=== PATIENT | female | born 1960 | race Caucasian/White ===

== ENCOUNTER → 2017-12-09 07:18 | Outpatient (CLI) | payer MEDICARE, MEDICAID, SELFPAY ==
[2017-12-10 15:13] LABS: Hep A Ab, IgM Negative (Negative); Hepatitis B Core Antibody IgM Negative (Negative); Hepatitis B Surface Antigen Negative (Negative)
[2017-12-10 19:07] LABS: Hepatitis C Antibody 0.1 s/co ratio (0.0-0.9)
== END ==
PROVIDERS: PCP Nurse Practitioner Family; Visit Provider Nurse Practitioner Family
DX: R53.83 Other fatigue (principal)
CPT/HCPCS: 36415; 80074

== ENCOUNTER 2017-12-16 10:53 | Emergency (ER) | payer MEDICARE, MEDICAID, SELFPAY ==
[2017-12-16 12:02] VITALS: BP 114/74; PULSE 88; RESP 20; TEMP 36.6; O2SAT 98; BMI 37.8
--- NOTE | 2017-12-16 12:08 | HMH.EDUTC ---
[facility] [place] Clinical Impression: Arthritis pain Disposition: Home, Self-Care Condition on Discharge: Good Instructions: Arthritis (Alternative Therapy) Additional Instructions: Follow up with family doctor Over the counter measures such as arthritis cream etc to help on raining days for the pain Return if needed Go straight to ER if symptoms worsen or you began to have chest pain or other life threatening problems Referrals: Olive Lal APRN [Primary Care Provider] - As needed Time of Disposition: 12:30 Medical Decision Making - Medical Records Medical records reviewed: Yes: I reviewed the patient's medical records. Vital Signs: 12/16/17 12:02 Temperature 97.9 F Temperature Source Oral Pulse Rate [Right Brachial] 88 Respiratory Rate 20 Blood Pressure [Right Arm] 114/74 Blood Pressure Mean [Right Arm] 87 Blood Pressure Source [Right Arm] Automatic Cuff Blood Pressure Position [Right Arm] Sitting 02 Sat by Pulse Oximetry 98 Oxygen Delivery Method Room Air - Neftali Inquiry Pt receiving controlled substance: No Neftali was queried for this patient: No - Reevaluation(s) Time: 12:25 Reevaluation #1: Patient currently taking Meloxicam State that she took her medication this morning wanting to see if she could get a pain shot, called pharmacy and talked with Pharmacist Philip and agreed that due to taking of meloxicam 6 hours ago that it would not be safe to have Tordol shot now. Patient informed and verbalized understanding [facility] [place] - General Stated complaint: back pain knees pain (bones hurt all over) Mode of Arrival: Ambulatory Source of Information: Patient Limitations: No Limitations Description of Symptoms (Recalled from Triage Doc. by RN): Bones hurt . Reports back, hip, and knee pain bilaterally for 3 days HEENT Symptoms (Recalled from RN notes): No Resp Symptoms (Recalled from RN notes): No Skin Symptoms (Recalled from RN notes): No MS Symptoms (Recalled from RN notes): Yes (arthritic like pain) Functional Status (Recalled from RN notes): na - History of Present Illness Provider Complaint: Patient state that she has a history of arthritits States that she usually goes to her family doctor and gets a cortisone shot State that she is having arthritis pain in her back hips, knees and feet State that she took her morning medication and is on a daily arthritits medication but it hasn't been helping much with her arthritis pain wanted to come in and see if she could get a pain shot to help her - Related Data Home Medications Medication Instructions Recorded Confirmed aspirin 81 mg tablet,delayed 81 mg PO DAILY tab 12/07/17 release coenzyme Q10 100 mg capsule 100 mg PO DAILY cap 12/07/17 ergocalciferol (vitamin D2) 2,000 1,000 unit PO DAILY tab 12/07/17 unit tablet hydrochlorothiazide 12.5 mg tablet 12.5 mg PO QAM 12/07/17 losartan 50 mg tablet 50 mg PO DAILY tab 12/07/17 meloxicam 7.5 mg tablet 7.5 mg PO DAILY tab 12/07/17 omega-3 fatty acids 1,000 mg 1,000 mg PO DAILY cap 12/07/17 capsule pravastatin 20 mg tablet 20 mg PO QHS 12/07/17 Previous Rx's Medication Instructions Recorded ezetimibe 10 mg tablet 10 mg PO DAILY #90 tab 12/13/17 pantoprazole 40 mg tablet,delayed 40 mg PO QAM #90 tab 12/13/17 release Allergies Allergy/AdvReac Type Severity Reaction Status Date / Time atorvastatin [ATORVASTATIN] Allergy Unknown Verified 12/08/17 15:55 colesevelam [From WELCHOL] Allergy Unknown Verified 12/08/17 15:55 rosuvastatin [From CRESTOR] Allergy Unknown Verified 12/08/17 15:55 DECADRON Allergy Unknown I-HIVES Uncoded 12/08/17 15:55 NIASPAN ER Allergy Unknown I-HIVES Uncoded 12/08/17 15:55 - Worker's Comp Is this a Worker's Comp case?: No Is this an H Worker's Comp?: No Is this a [place] Worker's Comp?: No H History I have reviewed the patient's past medical history: Yes Medical History: Reports:: Gastroesophageal Reflux Disease(YUMIKO
--- NOTE | 2017-12-16 12:20 | ED_ITS ---
[facility] – [place] Disposition Clinical Impression: Arthritis pain Disposition: Home, Self-Care Condition on Discharge: Good Instructions: Arthritis (Alternative Therapy) Additional Instructions: Follow up with family doctor Over the counter measures such as arthritis cream etc to help on raining days for the pain Return if needed Go straight to ER if symptoms worsen or you began to have chest pain or other life threatening problems Referrals: Olive Lal APRN [Primary Care Provider] - As needed Time of Disposition: 12:30 Medical Decision Making - Medical Records Medical records reviewed: Yes: I reviewed the patient's medical records. Vital Signs: 12/16/17 12:02 Temperature 97.9 F Temperature Source Oral Pulse Rate [Right Brachial] 88 Respiratory Rate 20 Blood Pressure [Right Arm] 114/74 Blood Pressure Mean [Right Arm] 87 Blood Pressure Source [Right Arm] Automatic Cuff Blood Pressure Position [Right Arm] Sitting 02 Sat by Pulse Oximetry 98 Oxygen Delivery Method Room Air - Neftali Inquiry Pt receiving controlled substance: No Neftali was queried for this patient: No - Reevaluation(s) Time: 12:25 Reevaluation #1: Patient currently taking Meloxicam State that she took her medication this morning wanting to see if she could get a pain shot, called pharmacy and talked with Pharmacist Philip and agreed that due to taking of meloxicam 6 hours ago that it would not be safe to have Tordol shot now. Patient informed and verbalized understanding [facility] – [place] HPI - General Stated complaint: back pain knees pain (bones hurt all over) Mode of Arrival: Ambulatory Source of Information: Patient Limitations: No Limitations Description of Symptoms (Recalled from Triage Doc. by RN): Bones hurt . Reports back, hip, and knee pain bilaterally for 3 days HEENT Symptoms (Recalled from RN notes): No Resp Symptoms (Recalled from RN notes): No Skin Symptoms (Recalled from RN notes): No MS Symptoms (Recalled from RN notes): Yes (arthritic like pain) Functional Status (Recalled from RN notes): na - History of Present Illness Provider Complaint: Patient state that she has a history of arthritits States that she usually goes to her family doctor and gets a cortisone shot State that she is having arthritis pain in her back hips, knees and feet State that she took her morning medication and is on a daily arthritits medication but it hasn' t been helping much with her arthritis pain wanted to come in and see if she could get a pain shot to help her - Related Data Home Medications Medication Instructions Recorded Confirmed aspirin 81 mg tablet,delayed 81 mg PO DAILY tab 12/07/17 release coenzyme Q10 100 mg capsule 100 mg PO DAILY cap 12/07/17 ergocalciferol (vitamin D2) 2,000 1,000 unit PO DAILY tab 12/07/17 unit tablet hydrochlorothiazide 12.5 mg tablet 12.5 mg PO QAM 12/07/17 losartan 50 mg tablet 50 mg PO DAILY tab 12/07/17 meloxicam 7.5 mg tablet 7.5 mg PO DAILY tab 12/07/17 omega-3 fatty acids 1,000 mg 1,000 mg PO DAILY cap 12/07/17 capsule pravastatin 20 mg tablet 20 mg PO QHS 12/07/17 Previous Rx's Medication Instructions Recorded ezetimibe 10 mg tablet 10 mg PO DAILY #90 tab 12/13/17 pantoprazole 40 mg tablet,delayed 40 mg PO QAM #90 tab 12/13/17 release Allergies
[2017-12-16 12:35] VITALS: BP 114/74; PULSE 88; RESP 20; TEMP 36.6; O2SAT 98
== END 2017-12-16 12:37 | disposition home or self-care (01) ==
PROVIDERS: Emergency Provider Nurse Practitioner; PCP Nurse Practitioner Family
DX: K21.9 Gastro-esophageal reflux disease without esophagitis (principal); Z79.82 Long term (current) use of aspirin; Z88.8 Allergy status to other drugs, medicaments and biological substances
CPT/HCPCS: G0463; 99202

== ENCOUNTER → 2017-12-19 11:01 | Outpatient (REF) | payer MEDICARE, MEDICAID, SELFPAY ==
[2017-12-19 14:24] LABS: Basophils % 0.5 % (0.1-2.0); Eosinophils # 0.3 K/mm3 (0.0-0.4); Eosinophils % 3.2 % (0.1-12.0); Hematocrit 41.5 % (37.0-47.0); Hemoglobin 13.8 g/dL (12.2-16.2); Lymphocytes # 2.5 K/mm3 (0.7-4.5); Lymphocytes % 27.9 K/mm3 (10-50); Mean Corpuscular HGB Conc 33.3 g/dL (31.8-35.4); Mean Corpuscular Hemoglobin 28.1 pg (27.0-31.2); Mean Corpuscular Volume 84.5 fl (81-99); Mean Platelet Volume 9.5 fl (7.4-10.4); Monocytes # 0.5 K/mm3 (0.1-1.0); Monocytes % 6.1 % (1.7-9.3); Neutrophils # 5.5 K/mm3 (1.8-7.8); Neutrophils % 62.3 % (37.0-80.0); Platelet Count 283 K/mm3 (142-424); Red Blood Count 4.92 M/mm3 (4.20-5.40); Red Cell Distribution Width 12.2 % (11.5-17.5); White Blood Count 8.8 K/mm3 (4.8-10.8)
[2017-12-19 14:55] LABS: Alanine Aminotransferase 30 U/L (12-78); Albumin Level 3.9 gm/dL (3.4-5.0); Albumin/Globulin Ratio 1.2 (1.1-1.8); Alkaline Phosphatase 95 U/L (46-116); Anion Gap 12.7 mEq/L (5-15); Aspartate Amino Transferase 21 U/L (15-37); Bilirubin,Total 0.3 mg/dL (0.2-1.0); Blood Urea Nitrogen 12 mg/dL (7-18); Calcium 8.7 mg/dL (8.5-10.1); Carbon Dioxide 30 mmol/L (21.0-32.0); Chloride 101 mmol/L (98-107); Creatinine,Serum 0.78 mg/dL (0.55-1.02); Estimated Glomerular Filt Rate 76 ml/min (>60); GFR (African American) 91 ML/MIN (>60); Globulin 3.2 gm/dl (1.3-3.2); Glucose 131 mg/dL (74-106); Potassium 3.7 mmoL/L (3.5-5.1); Sodium 140 mmol/L (136-145); Total Protein,Serum 7.1 gm/dL (6.4-8.2)
[2017-12-19 16:13] LABS: Erythrocyte Sedimentation Rate 13 mm/hr (0-30)
[2017-12-19 16:30] LABS: C-Reactive Protein < 0.2 mg/L (0.0-0.9)
[2017-12-20 10:39] LABS: RA Latex Turbid. <10.0 IU/mL (0.0-13.9)
[2017-12-20 14:15] LABS: Anti-Jo-1 <0.2 AI (0.0-0.9); Anti-Smith Antibody <0.2 AI (0.0-0.9); Antichromatin Antibodies <0.2 AI (0.0-0.9); Antiscleroderma-70 Antibodies <0.2 AI (0.0-0.9); RNP Antibodies 0.9 AI (0.0-0.9); Sjogren's Anti-SS-A <0.2 AI (0.0-0.9); Sjogren's Anti-SS-B <0.2 AI (0.0-0.9)
[2017-12-21 12:51] LABS: Anti-Centromere B Antibodies <0.2 AI (0.0-0.9); Anti-Cyclic Citrullinated Pept 7 units (0-19); Anti-DNA (DS) Ab Qn 22 IU/mL (0-9)
== END ==
LOC: LAB 11:01
PROVIDERS: Visit Provider Emergency Medicine
DX: R60.9 Edema, unspecified (principal)
CPT/HCPCS: 80053; 85025; 85651; 86038; 86140; 86200; 86431

== ENCOUNTER → 2018-01-31 16:49 | Outpatient (REF) | payer MEDICARE, MEDICAID, SELFPAY | LOC: LAB 16:49 | PROVIDERS: Visit Provider Nurse Practitioner Family | DX: R53.83 Other fatigue (principal) | CPT/HCPCS: 87086 ==

== ENCOUNTER → 2018-02-13 10:33 | Outpatient (CLI) | payer MEDICARE, MEDICAID, SELFPAY ==
--- NOTE | 2018-02-13 10:37 | MM_ITS ---
MM Dig screening mamm BI w/CAD CAD Screening ORDERING PHYSICIAN : Qing Alexander PATIENT AGE: 57 years GENDER: Female HISTORY no hormones no new complaints. Benign surgical excisional biopsy left breast in past. Family history. Noncontributory COMPARISON: Previous mammograms: 2016, October 2015.: TECHNIQUE: Standard CC and MLO images were obtained. R2 CAD reviewed. FINDINGS:. Dense breast with regions of very dense breast tissue bilaterally again noted. Appears overall stable, but would note that mammography is of decreased sensitivity in breast of this dense character which may obscure underlying features... Ultrasound can be useful compliment to mammography in breast of this diffuse increased density particularly palpable areas arise. Self breast examination would be encouraged in this patient Left breast Dense areas of breast tissue is slightly more apparent on the left breast than right but again the pattern is unchanged on this screening mammogram.. No new dominant mass nor architectural distortion either breast. There are some tiny calcifications seen towards the deep breast which appears similar to 2016]. Most likely reflecting adenosis and vascular calcifications -but these but also would benefit from magnification views in the patient returns as well. This area labeled X. There is also metallic on marker at the anterior left breast from previous percutaneous biopsy 11 o'clock position left breast Right breast. On close inspection I would note that there are some small areas of loose grouping calcifications seen at the inferior right breast most evident at the site Labeled A. On these oh warrant additional magnification spot views it is also area inferior breast labeled B. Which would also benefit from magnification spot view =====IMPRESSION: = 1. Dense breast bilaterally limit mammography but with no new mass lesion evident 2. However there are small Tiny Calcifications Bilaterally which would benefit from Magnification Views .:: Right Breast. Tiny loosely grouped calcifications are slightly more evident at the area labeled A and B on today's study.-Most likely benign fibrocystic calcification &/adenosis but would benefit from magnification views to better characterize Left Breast: these are most likely stable benign tiny adenosis calcifications but would benefit from magnification views when patient returns as well . BI-RADS Category: 0 Need Additional Imaging Evaluaiton. RECOMMENDED FOLLOW-UP: IMM - IMMEDIATE FOLLOW-UP RECOMMENDED (A letter has been sent to the patient regarding results of the study.)
== END ==
PROVIDERS: PCP Nurse Practitioner Family; Visit Provider Nurse Practitioner Family
DX: Z12.31 Encounter for screening mammogram for malignant neoplasm of breast (principal)
CPT/HCPCS: 77067

== ENCOUNTER → 2018-02-15 08:31 | Outpatient (CLI) | payer MEDICARE, MEDICAID, SELFPAY ==
--- NOTE | 2018-02-15 09:00 | US_ITS ---
US abdomen complete HISTORY: Lower abdominal pain ITS.REASON: pain ORDERING PHYSICIAN: Qing Alexander PATIENT AGE: 57 years COMPARISON: 09/05/2017 FINDINGS: PANCREAS:Unremarkable. No obvious mass or abnormal fluid collection. No ductal dilatation LIVER:There is increased echogenicity of the liver with a somewhat heterogeneous pattern consistent with fatty liver. No focal space-occupying lesion or ductal dilatation. Portal vein is normal in size at 10 mm with appropriate direction of blood flow within the portal vein. RIGHT KIDNEY:Unremarkable. Normal size and echogenicity. No hydronephrosis LEFT KIDNEY:No hydronephrosis. Mild cortical thinning with scarring of the left kidney GALLBLADDER:Prior cholecystectomy. Common bile duct is normal at 3 mm AORTA:No evidence of aneurysmal dilatation. SPLEEN:Unremarkable. Normal size and echogenicity ASCITES:None demonstrated. IMPRESSION: 1. Prior cholecystectomy. No ductal dilatation. 2. Fatty liver. 3. Mild cortical scarring of the left kidney
== END ==
PROVIDERS: PCP Nurse Practitioner Family; Visit Provider Nurse Practitioner Family
DX: R10.9 Unspecified abdominal pain (principal)
CPT/HCPCS: 76700

== ENCOUNTER → 2018-02-21 12:40 | Outpatient (CLI) | payer MEDICARE, MEDICAID, SELFPAY ==
--- NOTE | 2018-02-21 13:54 | MM_ITS ---
. MM Dig mamm BI DX w/CAD CAD Screening ORDERING PHYSICIAN : Olive Lal PATIENT AGE: 57 years GENDER: Female COMPARISON: Previous mammograms: February 13, 2018, December 2016, October 2015, December 2012, INDICATION:. Diagnostic additional magnification views for small calcifications bilateral Previous stereotactic biopsy left breast. Noncontributory history. TECHNIQUE: Standard CC and MLO images were obtained. R2 CAD reviewed. The patient difficult to position FINDINGS: Dense breast bilaterally . This case was initially reviewed by Dr. De La Rosa but subsequent assigned to Dr. Calderon by technologist resulting in delayed reporting RIGHT BREAST:Scattered small loose groupings of tiny generally punctate calcifications also is a smaller grouping labeled C. And breast of this dense character these most likely reflect fibrocystic calcifications and adenosis but will benefit from close follow-up in within 9 months to better characterize and confirm stability on magnification views,/with this close growth . Specifically noted area A deep central breast labeled a on cc view, & another small grouping more laterally labeled B... LEFT BREAST: Small clustered calcifications in the deep left breast seen on cc view labeled X, becomes more diffuse and less evident on the MLO and 90 degree view. In fact, and 90 degree views these seem to be may be vascular calcification pattern. This particular grouping labeled X calcifications have shown only scant progression of versus 2017. There are some other small areas of loosely grouped calcifications throughout the lateral breast on the magnification cc view also noted.. Thus At this point I suggest a left mammogram with magnification views in 6 to 9 months again attempt to better visualize these tiny calcifications... Close follow-up here. Would be important. Metallic marker clip at the superior left breast 11 o'clock position from previous percutaneous biopsy The longer follow-up interval may be helpful to evaluate for any subtle change as I suspect these will be slowly changing, as I favor they are more likely benign calcifications. IMPRESSION: 1. Dense breast bilaterally decreases sensitivity of mammography 2... Scattered small groupings tiny calcifications bilaterally which would benefit from follow-up in 6-9 months. (The Longer interval would be adequate in these likely slowly changing more likely benign calcifications.): LEFT BREAST. Small grouping tiny calcifications upper-outer quadrant left breast labeled X. These best seen on cc view, but appears more scattered & lateral possibly linear vascular calcifications on lateral views. These calcifications been present since 2017 with only subtle progression.. At this point would suggest follow-up with follow-up left mammogram including magnification views 6-9 months. RIGHT BREAST with several small loose grouping calcifications but more likely reflecting adenosis. . These also benefit from follow-up magnification CC views area also at 6- 9 months when patient returns suggested as well. Currently no grouping of calcification is significantly greater concern then another, but ongoing follow-up will be important . BI-RADS Category: 3 Benign Finding Short Term Follow-up RECOMMENDED FOLLOW-UP: 6M `-9 MONTH FOLLOW-UP Follow-up mammograms with magnification views suggested 9 months ( Magnification views of small groupings calcifications at area X at the left breast; & right breast at at area A & B, recommended in follow-up) (A letter has been sent to the patient regarding results of the study.)
== END ==
PROVIDERS: PCP Nurse Practitioner Family; Visit Provider Nurse Practitioner Family
DX: R92.8 Other abnormal and inconclusive findings on diagnostic imaging of breast (principal)
CPT/HCPCS: 77066

== ENCOUNTER → 2018-09-27 12:27 | Outpatient (CLI) | payer MEDICARE, MEDICAID, SELFPAY ==
--- NOTE | 2018-09-27 12:29 | MM_ITS ---
MM Dig mamm BI DX w/CAD INDICATION: Follow-up abnormal mammogram ORDERING PHYSICIAN: Olive Lal PATIENT AGE: 58 years COMPARISON: 02/21/2018, 02/13/2018, 12/22/2016 TECHNIQUE: Standard images are performed along with spot compression views. FINDINGS: Right breast: There is very dense fibroglandular tissue which decreases sensitivity of mammography. Scattered calcifications are once again noted. There is a cluster of somewhat pleomorphic calcifications in the inferior aspect of the right breast which appears somewhat more numerous compared to the previous study. It is felt that these are the same cluster calcifications and is present in the central aspect of the right breast previously labeled A. Calcification previously labeled B and C are not significantly changed and probably benign Left breast: Cluster of calcifications previously labeled X in the outer aspect of the left breast do not appear significantly changed on the mag views. Faint calcifications in the upper outer left breast do not appear significantly changed. Multiple areas of calcification are noted within both breasts. These are difficult to evaluate due to the dense fibroglandular tissue but are felt to be probably benign. Continued follow-up will be needed.. Continued six-month follow-up recommended IMPRESSION: Mildly suspicious calcifications in the inferior aspect of the right breast slightly increased in number. Recommend stereotactic biopsy BI-RADS Category: 4 Suspicious Abnormality-Biopsy Considered RECOMMENDED FOLLOW-UP: BIO - BIOPSY RECOMMENDED (A letter has been sent to the patient regarding results of the study.)
== END ==
PROVIDERS: PCP Nurse Practitioner Family; Visit Provider Nurse Practitioner Family
DX: R92.8 Other abnormal and inconclusive findings on diagnostic imaging of breast (principal)
CPT/HCPCS: 77066

== ENCOUNTER → 2018-11-01 07:52 | Outpatient (CLI) | payer MEDICARE, MEDICAID, SELFPAY ==
--- NOTE | 2018-11-01 | MM_ITS ---
MM stereotactic loc RT MM Dig mamm DX unilat RT CAD, ORDERING PHYSICIAN: Bautista Eli MD PATIENT AGE: 58 years Comparison: 09/27/2018 Indications: Abnormal mammogram with suspicious calcifications. PROCEDURE: The patient was placed on the stereotactic table and the abnormality was localized in the most appropriate projection. The breast was prepped in the routine manner, with sterile prep and the overlying skin anesthetized. A 3 to 4 mm skin incision was performed and the age gauge vacuum-assisted core biopsy needle was advanced to the region of the calcification. Pre- and post fire images were obtained. After adequate positioning relative to the calcifications was ensured, multiple biopsies were obtained in the region of the calcifications specifically. The core biopsies obtained were sent for specimen mammography. After the calcifications were indeed identified on the specimen mammogram, the procedure was terminated. The patient tolerated the procedure well without complications. Specimen was sent for pathologic analysis which should be forthcoming within 3 working days. Routine follow-up phone call to patient is to be performed as well. A tiny titanium nonferromagnetic MicroMark was positioned through the mammotome needle into the biopsy site. Pathology: Pseudoangiomatous stromal hyperplasia, nonproliferative fibrocystic changes. Microcalcifications. No evidence of malignancy or atypia IMPRESSION: 1. Successful stereotactic vacuum-assisted core biopsy of the Right breast calcifications showing benign findings. 2. Successful placement of a titanium metal MicroMark. 3. No noted complications. SPECIMEN RADIOGRAPH: The mammographically evident calcifications from the prior study are currently evident within the Chepe dish and within the specimens obtained during mammotome procedure. This is considered an adequate specimen and the procedure was terminated. IMPRESSION: Successful removal of described breast calcifications. Right BREAST MAMMOGRAM: Compared to the prior study, the previously noted calcification have been removed. A small MicroMark clip was inserted into the region of the calcifications. There is evidence of soft tissue changes in the region of the biopsy was soft tissue gas and edema. IMPRESSION: 1. Adequate placement of the MicroMark clip postbiopsy. 2. Postbiopsy changes within the rightbreast.
== END ==
PROVIDERS: PCP Emergency Medicine; Visit Provider Emergency Medicine
DX: R92.1 Mammographic calcification found on diagnostic imaging of breast (principal); R92.8 Other abnormal and inconclusive findings on diagnostic imaging of breast
CPT/HCPCS: 19081; 77065; 88305

== ENCOUNTER → 2018-11-03 19:03 | Outpatient (CLI) | payer MEDICARE, MEDICAID, SELFPAY | PROVIDERS: Visit Provider Nurse Practitioner Family | DX: R10.9 Unspecified abdominal pain (principal) | CPT/HCPCS: 87086 ==

== ENCOUNTER → 2018-12-06 14:09 | Outpatient (CLI) | payer MEDICARE, MEDICAID, SELFPAY | PROVIDERS: Visit Provider Nurse Practitioner Family | DX: R10.9 Unspecified abdominal pain (principal); N39.0 Urinary tract infection, site not specified | CPT/HCPCS: 87086 ==

== ENCOUNTER → 2018-12-26 13:44 | Outpatient (CLI) | payer MEDICARE, MEDICAID, SELFPAY ==
[2018-12-26 14:17] LABS: Basophils % 0.5 % (0.1-2.0); Eosinophils # 0.3 K/mm3 (0.0-0.4); Eosinophils % 3.2 % (0.1-12.0); Hematocrit 44.6 % (37.0-47.0); Lymphocytes % 37.6 % (10-50); Mean Corpuscular HGB Conc 33.5 g/dL (31.8-35.4); Mean Corpuscular Hemoglobin 28.2 pg (27.0-31.2); Mean Corpuscular Volume 84.3 fl (81-99); Mean Platelet Volume 8.7 fl (7.4-10.4); Monocytes # 0.3 K/mm3 (0.1-1.0); Monocytes % 4.2 % (1.7-9.3); Neutrophils # 4.3 K/mm3 (1.8-7.8); Neutrophils % 54.6 % (37.0-80.0); Platelet Count 320 K/mm3 (142-424); Red Cell Distribution Width 12.7 % (11.5-17.5); White Blood Count 7.9 K/mm3 (4.8-10.8)
[2018-12-26 15:11] LABS: Alanine Aminotransferase 30 U/L (12-78); Albumin Level 4.1 gm/dL (3.4-5.0); Albumin/Globulin Ratio 1.1 (1.1-1.8); Alkaline Phosphatase 104 U/L (46-116); Anion Gap 13.1 mEq/L (5-15); Aspartate Amino Transferase 18 U/L (15-37); Bilirubin,Total 0.5 mg/dL (0.2-1.0); Blood Urea Nitrogen 17 mg/dL (7-18); Calcium 9.5 mg/dL (8.5-10.1); Carbon Dioxide 31 mmol/L (21.0-32.0); Chloride 100 mmol/L (98-107); Creatinine,Serum 0.75 mg/dL (0.55-1.02); Estimated Glomerular Filt Rate 79 ml/min (>60); Free T4 (Free Thyroxine) 1.07 ng/dl (0.76-1.46); GFR (African American) 95 ML/MIN (>60); Globulin 3.8 gm/dl (1.3-3.2); Glucose 94 mg/dL (74-106); Potassium 4.1 mmoL/L (3.5-5.1); Sodium 140 mmol/L (136-145); Thyroid Stimulating Hormone 2.51 uIU/ml (0.358-3.740); Total Protein,Serum 7.9 gm/dL (6.4-8.2)
[2018-12-27 14:41] LABS: Vitamin D 25 Hydroxy 33.1 ng/mL (30.0-100.0)
== END ==
PROVIDERS: Visit Provider Nurse Practitioner Family
DX: L29.9 Pruritus, unspecified (principal); R53.83 Other fatigue
CPT/HCPCS: 80053; 82652; 84439; 84443; 85025

== ENCOUNTER → 2019-01-16 14:36 | Outpatient (CLI) | payer MEDICARE, MEDICAID, SELFPAY ==
[2019-01-16 15:28] LABS: Chol/HDL Ratio 5.1 (1-3.5); Cholesterol 251 mg/dL (140-200); HDL Cholesterol 49 mg/dL (29-89); LDL Cholesterol 171 mg/dL (0-130); Triglycerides 154 mg/dL (30-200); VLDL Cholesterol 31 mg/dL (0-40)
== END ==
PROVIDERS: Visit Provider Nurse Practitioner Family
DX: R53.83 Other fatigue (principal); L29.9 Pruritus, unspecified; Z79.899 Other long term (current) drug therapy
CPT/HCPCS: 80061

== ENCOUNTER → 2019-03-27 12:14 | Outpatient (CLI) | payer MEDICARE, MEDICAID, SELFPAY ==
--- NOTE | 2019-03-27 12:16 | NM_ITS ---
CARDIOLITE SPECT MYOCARDIAL PERFUSION LEXISCAN, REST AND STRESS: [facility] REVIEW QGS EF AND WALL MOTION EVALUATION: QPS - PERFUSION EVALUATION HISTORY: cp..palpitations..syncope DOSE: 10.62 mCi technetium 99m mibi intravenously at rest followed by 32.4 mCi technetium 99m mibi following the intravenous ministration of 0.4 mg of Lexiscan. Resting blood pressure is 165/86. Stress blood pressure 160/86. FINDINGS: Ejection fraction is calculated to be 70%. Stress images reveal decreased activity in the anterior wall while rest images reveal normal activity IMPRESSION: Reversible ischemia throughout the anterior wall with normal ejection fraction normal wall motion. High risk abnormal stress test
--- NOTE | 2019-03-27 13:17 | CA_ITS ---
PROCEDURE: 2-D M-mode and color Doppler study INDICATIONS FOR THE TEST: Chest pain+ COPD Heart Murmur Tobacco Smoking Palpitations+ Fatigue+ Syncope Edema+ Hypertension+Diabetes Mellitus Rheumatic Fever SOB TADEO Obesity Hyperlipidemia+ Family History HD Additional History BUTCH, PALP, GERD, ULCER PATIENT INFORMATION HEIGHT: 63 WEIGHT:199 GENDER: Female B/P:153/81 2-D/M-MODE INTERPRETATION: 2-D MEASUREMENTS OBSERVED VALUES IN CMS Right Ventricular Dimension (RVDd) 2.4 Interventricular Septum (Thickness)(IVsd) 1.0 Left Ventricular Internal Dimensions(LVIDd) 4.8 Left Ventricular Posterior Wall (Thickness)(LVPWd) 0.9 Aortic Root 2.9 Aortic Cusp Separation 2.1 Left Atrial Dimensions (LAD) 3.8 2D 1. Left atrium is mildly enlarged, left ventricle is normal size, mild concentric left ventricular hypertrophy, visually estimated ejection fraction 55% with no regional wall motion abnormality. 2. The right atrium and right ventricle are normal size and contractility. 3. The aortic valve is minimally thickened and fibrosed. 4. The mitral and tricuspid valvular grossly normal. 5. The pulmonic valve is poorly present. 6. No significant pericardial effusion noted. DOPPLER INTERROGATION: Doppler interrogation of the aortic, mitral and tricuspid valvular presence of mild mitral and tricuspid regurgitation, tricuspid regurgitation jet velocity is inadequate for calculation of the right ventricular systolic pressure, grade 1 diastolic dysfunction seen with tissue Doppler evidence of raised left atrial pressure. CONCLUSION: 1. Mildly enlarged left atrium, normal left ventricular size, mild concentric left ventricular hypertrophy, visually estimated ejection fraction 55% with no regional wall motion abnormality, grade 1 diastolic dysfunction seen with tissue Doppler evidence of raised left atrial pressure. 2. Mild mitral and tricuspid regurgitation 3. No significant pericardial effusion noted.
--- NOTE | 2019-03-27 13:53 | HMH.ITSHM ---
Current Home Medications as stated by this patient Alfreda Lai or personal service representative. []PANTOPRAZOLE LOSARTAN HYDROCHLOROTHIAZIDE EZETIMIBE VITAMIN D2 CETIRIZINE ASA VENLAFAXINE
== END ==
PROVIDERS: PCP Nurse Practitioner Family; Visit Provider Urology
DX: E78.5 Hyperlipidemia, unspecified (principal); I10 Essential (primary) hypertension; R00.2 Palpitations; R07.9 Chest pain, unspecified; R53.83 Other fatigue; R60.9 Edema, unspecified
CPT/HCPCS: 78452; 93017; 93306; A9502; J2785

== ENCOUNTER → 2019-04-05 08:48 | Outpatient (CLI) | payer MEDICARE, MEDICAID, SELFPAY | PROVIDERS: Visit Provider Nurse Practitioner Family | DX: N89.8 Other specified noninflammatory disorders of vagina (principal) | CPT/HCPCS: 87210 ==

== ENCOUNTER 2019-04-17 14:33 | Outpatient (RCR) | payer MEDICARE, MEDICAID, SELFPAY | END 2019-06-08 15:27 | disposition home or self-care (01) | LOC: PT 14:33 | PROVIDERS: Visit Provider Internal Medicine | DX: Z95.5 Presence of coronary angioplasty implant and graft (principal); I25.10 Atherosclerotic heart disease of native coronary artery without angina pectoris | CPT/HCPCS: 93798 ==

== ENCOUNTER → 2019-05-28 08:32 | Outpatient (CLI) | payer MEDICARE, MEDICAID, SELFPAY ==
[2019-05-28 11:29] LABS: Alanine Aminotransferase 20 U/L (12-78); Albumin Level 3.6 gm/dL (3.4-5.0); Alkaline Phosphatase 94 U/L (46-116); Anion Gap 13.1 mEq/L (5-15); Aspartate Amino Transferase 11 U/L (15-37); Bilirubin,Direct 0.1 mg/dL (0.0-0.2); Bilirubin,Indirect 0.5 mg/dL (0.0-0.9); Bilirubin,Total 0.6 mg/dL (0.2-1.0); Blood Urea Nitrogen 20 mg/dL (7-18); Carbon Dioxide 28 mmol/L (21.0-32.0); Chloride 104 mmol/L (98-107); Chol/HDL Ratio 5.1 (1-3.5); Cholesterol 199 mg/dL (140-200); Creatinine,Serum 0.82 mg/dL (0.55-1.02); Estimated Glomerular Filt Rate 71 ml/min (>60); GFR (African American) 86 ML/MIN (>60); Glucose 101 mg/dL (74-106); HDL Cholesterol 39 mg/dL (29-89); LDL Cholesterol 123 mg/dL (0-130); Magnesium 1.7 mg/dL (1.4-2.2); Potassium 4.1 mmoL/L (3.5-5.1); Sodium 141 mmol/L (136-145); Total Protein,Serum 7.1 gm/dL (6.4-8.2); Triglycerides 185 mg/dL (30-200); VLDL Cholesterol 37 mg/dL (0-40)
== END ==
PROVIDERS: Visit Provider Internal Medicine Cardiovascular Disease
DX: E78.2 Mixed hyperlipidemia (principal); I10 Essential (primary) hypertension; I25.10 Atherosclerotic heart disease of native coronary artery without angina pectoris; R60.1 Generalized edema; Z95.5 Presence of coronary angioplasty implant and graft; R00.2 Palpitations
CPT/HCPCS: 36415; 80048; 80061; 80076; 83735

== ENCOUNTER → 2019-07-13 12:13 | Outpatient (CLI) | payer MEDICARE, MEDICAID, SELFPAY ==
[2019-07-13 12:38] LABS: Basophils % 0.4 % (0.1-2.0); Eosinophils # 0.3 K/mm3 (0.0-0.4); Eosinophils % 2.6 % (0.1-12.0); Hematocrit 44.1 % (37.0-47.0); Hemoglobin 14.3 g/dL (12.2-16.2); Lymphocytes # 3.4 K/mm3 (0.7-4.5); Lymphocytes % 31.8 % (10-50); Mean Corpuscular HGB Conc 32.4 g/dL (31.8-35.4); Mean Corpuscular Hemoglobin 28.8 pg (27.0-31.2); Mean Corpuscular Volume 88.8 fl (81-99); Mean Platelet Volume 8.7 fl (7.4-10.4); Monocytes # 0.4 K/mm3 (0.1-1.0); Monocytes % 3.6 % (1.7-9.3); Neutrophils # 6.6 K/mm3 (1.8-7.8); Neutrophils % 61.6 % (37.0-80.0); Platelet Count 288 K/mm3 (142-424); Red Blood Count 4.97 M/mm3 (4.20-5.40); Red Cell Distribution Width 12.8 % (11.5-17.5); White Blood Count 10.7 K/mm3 (4.8-10.8)
== END ==
PROVIDERS: Visit Provider Internal Medicine Cardiovascular Disease
DX: R00.1 Bradycardia, unspecified (principal)
CPT/HCPCS: 36415; 85025

== ENCOUNTER → 2019-11-19 08:02 | Outpatient (CLI) | payer MEDICARE, OTHER, SELFPAY ==
--- NOTE | 2019-11-19 08:02 | MM_ITS ---
PROCEDURE: MM DIG SCREENING MAMM BI W/CAD CLINICAL INDICATION: Screening There is no personal or family history of breast cancer. There have been biopsies on each breast for benign disease. COMPARISON: DXBI MM Dig mamm BI DX w/CAD from 02/21/2018 DXBI MM Dig mamm BI DX w/CAD from 09/27/2018 DXRT MM Dig mamm DX unilat RT CAD from 11/01/2018 TECHNIQUE: Standard CC and MLO images were obtained. Lauri images were performed. FINDINGS: Prominent heterogenic fibroglandular densities are seen in the central portions of both breasts. Lauri images are helpful in this lady with dense parenchymal pattern. There are benign-appearing calcifications in each breast. There is a biopsy clip in each breast. There is no suspicious lesion and no suspicious microcalcifications. IMPRESSION: Moderately dense parenchymal pattern with no suspicious lesions seen BI-RAD Category: 2 Benign Finding(s) FOLLOW-UP: 1YR 1 Year Follow-up (A letter has been sent to the patient regarding results of the study.) Dictated by: Dr. Rolly Lara MD 11/21/2019 08:[address] Rolly Lara MD in [place] 11/21/2019 08:26
--- NOTE | 2019-11-19 08:02 | XR_ITS ---
PROCEDURE: XR CHEST 2V CLINICAL HISTORY: preop Shortness of air COMPARISON: CXR2 CHEST-AP VIEW ONLY from 12/04/[address] CERVICAL SPINE W/O CONT from 12/04/[address] LUMBAR SPINE W/O CONTRAST from 12/04/2012 FINDINGS: The cardiomediastinal silhouette and pulmonary vascularity are within normal limits. The lungs are clear without infiltrates, suspicious nodules, or pleural effusions. There are mild degenerative changes in the midthoracic spine with mild kyphosis. There is the left 8th rib fracture laterally age indeterminate. IMPRESSION: 1. Nondisplaced left 8th rib fracture age indeterminate. 2. Otherwise negative Dictated by: Umang De La Rosa MD 11/19/2019 09:22 Electronically signed by Umang De La Rosa MD in [place] 11/19/2019 09:22
[2019-11-19 08:49] LABS: Basophils % 0.5 % (0.1-2.0); Eosinophils # 0.3 K/mm3 (0.0-0.4); Eosinophils % 3.7 % (0.1-12.0); Hematocrit 42.4 % (37.0-47.0); Hemoglobin 13.8 g/dL (12.2-16.2); Lymphocytes # 2.5 K/mm3 (0.7-4.5); Lymphocytes % 30.6 % (10-50); Mean Corpuscular HGB Conc 32.7 g/dL (31.8-35.4); Mean Corpuscular Hemoglobin 28.1 pg (27.0-31.2); Mean Corpuscular Volume 85.9 fl (81-99); Mean Platelet Volume 8.8 fl (7.4-10.4); Monocytes # 0.4 K/mm3 (0.1-1.0); Monocytes % 5.4 % (1.7-9.3); Neutrophils # 4.9 K/mm3 (1.8-7.8); Neutrophils % 59.8 % (37.0-80.0); Platelet Count 329 K/mm3 (142-424); Red Blood Count 4.93 M/mm3 (4.20-5.40); Red Cell Distribution Width 12.2 % (11.5-17.5); White Blood Count 8.2 K/mm3 (4.8-10.8)
[2019-11-19 09:17] LABS: Anion Gap 15.2 mEq/L (5-15); Blood Urea Nitrogen 12 mg/dL (7-18); Calcium 8.7 mg/dL (8.5-10.1); Carbon Dioxide 29 mmol/L (21.0-32.0); Chloride 104 mmol/L (98-107); Creatinine,Serum 0.91 mg/dL (0.55-1.02); Estimated Glomerular Filt Rate 63 ml/min (>60); GFR (African American) 76 ML/MIN (>60); Glucose 105 mg/dL (74-106); Potassium 4.2 mmoL/L (3.5-5.1); Sodium 144 mmol/L (136-145); T4 (Thyroxine) 11.1 ug/dl (4.7-13.3); Thyroid Stimulating Hormone 2.38 uIU/ml (0.358-3.740)
== END ==
PROVIDERS: PCP Nurse Practitioner Family; Visit Provider Nurse Practitioner Family
DX: Z01.818 Encounter for other preprocedural examination (principal); Z12.31 Encounter for screening mammogram for malignant neoplasm of breast; G89.29 Other chronic pain; M25.569 Pain in unspecified knee; R53.83 Other fatigue
CPT/HCPCS: 36415; 71046; 77063; 77067; 80048; 84436; 84443; 85025

== ENCOUNTER → 2020-05-01 09:23 | Outpatient (CLI) | payer MEDICARE, OTHER, SELFPAY ==
[2020-05-01 10:24] LABS: Alanine Aminotransferase 13 U/L (12-78); Aspartate Amino Transferase 23 U/L (14-36); Bilirubin,Unconjugated 0.6 mg/dL (0.0-1.1)
[2020-05-01 10:25] LABS: Albumin Level 4.2 g/dl (3.5-5.0); Alkaline Phosphatase 95 U/L (38-126); Bilirubin,Indirect 0.6 mg/dL (0.0-0.9); Bilirubin,Total 0.6 mg/dl (0.2-1.3); Chol/HDL Ratio 5.6 (1-3.5); Cholesterol 208 mg/dl (140-200); HDL Cholesterol 37 mg/dl (40-60); Total Protein,Serum 7.2 g/dl (6.3-8.2); Triglycerides 252 mg/dl (30-150); VLDL Cholesterol 50 mg/dL (0-40)
[2020-05-01 10:36] LABS: Direct LDL Cholesterol 143.07 mg/dL (100-129)
== END ==
PROVIDERS: Visit Provider Nurse Practitioner Family
DX: E78.5 Hyperlipidemia, unspecified (principal); I10 Essential (primary) hypertension; I25.10 Atherosclerotic heart disease of native coronary artery without angina pectoris; Z95.5 Presence of coronary angioplasty implant and graft
CPT/HCPCS: 36415; 80061; 80076

== ENCOUNTER 2020-07-14 18:36 | Emergency (ER) | payer MEDICARE, OTHER, SELFPAY ==
[2020-07-14 18:47] VITALS: BP 147/66; PULSE 66; RESP 18; O2SAT 97; BMI 35.6
--- NOTE | 2020-07-14 18:54 | HMH.EDUTC ---
[facility] [place]ression: Cervical strain Qualifiers: Encounter type: initial encounter Qualified Code(s): S16.1XXA - Strain of muscle, fascia and tendon at neck level, initial encounter Disposition: Home, Self-Care Condition on Discharge: Good Instructions: DI for Cervical Muscle Strain, DI for Neck Pain, Baclofen Additional Instructions: Apply heat to the right side of your neck as tolerated. Take tylenol for pain. The baclofen could make you drowsy or dizzy, so don't take it if you are going to be driving or operating heavy machinery. Take the prescribed medications as directed. Follow up with your primary care physician. GO TO THE ER FOR ANY WORSENING SYMPTOMS OR CONCERNS Prescriptions: Baclofen 5 mg PO BIDP PRN #20 tab PRN Reason: Muscle Spasm Transmission Status: Received by [facility] #[id number] Referrals: Olive Lal APRN [Primary Care Provider] - Time of Disposition: 19:11 Medical Decision Making - Medical Records Medical records reviewed: No: I reviewed the patient's medical records. - Neftali Inquiry Pt receiving controlled substance: No Vital Signs: 07/14/20 18:47 07/14/20 19:16 Temperature 98.0 F Temperature Source Oral Pulse Rate 66 Pulse Rate [Radial] 66 Respiratory Rate 18 18 Blood Pressure 147/66 H Blood Pressure [Right Arm] 147/66 H Blood Pressure Mean [Right Arm] 93 Blood Pressure Source Automatic Cuff Blood Pressure Source [Right Arm] Automatic Cuff Blood Pressure Position Sitting Blood Pressure Position [Right Arm] Sitting 02 Sat by Pulse Oximetry 97 Oxygen Delivery Method Room Air Room Air [facility] [place] - General Stated complaint: Pain in R of Head, down face,neck Time Seen by Provider: 07/14/20 18:54 Mode of Arrival: Ambulatory Source of Information: Patient Limitations: No Limitations Description of Symptoms (Recalled from Triage Doc. by RN): RIGHT SIDE HEAD, EAR AND NECK PAIN HEENT Symptoms (Recalled from RN notes): Yes Resp Symptoms (Recalled from RN notes): No Skin Symptoms (Recalled from RN notes): No MS Symptoms (Recalled from RN notes): No Functional Status (Recalled from RN notes): WNL - History of Present Illness Provider Complaint: She c/o right sided neck and pain around her right ear since earlier today. She denies any known injury. She denies any vision changes or focal weakness. - Related Data Home Medications Medication Instructions Recorded Confirmed aspirin 81 mg tablet,delayed 81 mg PO DAILY tab 12/07/17 11/30/19 release coenzyme Q10 100 mg capsule 100 mg PO DAILY cap 12/07/17 11/30/19 Venlafaxine HCl [Venlafaxine HCl 37.5 mg PO DAILY 06/23/18 11/30/19 ER] Previous Rx's Medication Instructions Recorded cetirizine 10 mg tablet 10 mg PO DAILY #30 tab 12/26/18 clopidogrel 75 mg tablet 75 mg PO DAILY #30 tab 04/20/19 losartan 50 mg tablet 50 mg PO DAILY #90 tab 10/08/19 ezetimibe 10 mg tablet See Rx Instructions .ROUTE 04/29/20 .COMPLEX #90 tab triamterene 37.5 0.5 tab PO DAILY #45 tab 04/29/20 mg-hydrochlorothiazide 25 mg tablet bisoprolol fumarate 5 mg tablet 5 mg PO DAILY #90 tab 05/09/20 pantoprazole 40 mg tablet,delayed 40 mg PO DAILY #90 tab 06/09/20 release Baclofen 5 mg PO BIDP PRN #20 tab 07/14/20 Allergies Allergy/AdvReac Type Severity Reaction Status Date / Time dexamethasone [From Decadron] Allergy Intermediate Hives/CHEST Verified 04/29/20 09:17 PAIN rosuvastatin [From CRESTOR] Allergy Intermediate Hives Verified 04/29/20 09:17 atorvastatin [ATORVASTATIN] Allergy Mild Hives Verified 04/29/20 09:17 colesevelam [From WELCHOL] Allergy Mild Hives Verified 04/29/20 09:17 niacin Allergy Mild Hives Verified 04/29/20 09:17 [From Niaspan Extended-Release] - Worker's Comp Is this a Worker's Comp case?: No [facility] History - Hepatitis A Screen Drug use history?: No High risk sexual behaviors?: No History of sexually transmitted infection?: No Curre
[2020-07-14 19:16] VITALS: BP 147/66; PULSE 66; RESP 18; TEMP 36.7; O2SAT 97
== END 2020-07-14 19:17 | disposition home or self-care (01) ==
PROVIDERS: Emergency Provider Nurse Practitioner Family; PCP Nurse Practitioner Family
DX: S16.1XXA Strain of muscle, fascia and tendon at neck level, initial encounter (principal); K21.9 Gastro-esophageal reflux disease without esophagitis; E78.5 Hyperlipidemia, unspecified; I10 Essential (primary) hypertension
CPT/HCPCS: 99201

== ENCOUNTER 2020-07-14 21:18 | Emergency (ER) | payer MEDICARE, OTHER, SELFPAY ==
[2020-07-14 21:34] VITALS: BP 144/100; PULSE 70; RESP 17; TEMP 36.7; O2SAT 96; BMI 35.6
--- NOTE | 2020-07-14 21:54 | HMH.EDGENADL ---
ED Disposition Clinical Impression: Cervical strain, acute Qualifiers: Encounter type: initial encounter Qualified Code(s): S16.1XXA - Strain of muscle, fascia and tendon at neck level, initial encounter Disposition: Home, Self-Care Condition on Discharge: Good Instructions: DI for Neck Pain Additional Instructions: see pcp at 10 am Referrals: Olive Lal APRN [Primary Care Provider] - - Critical Care Critical Care Time: No Attestation: On 07/14/20, the high probability of a clinically significant, sudden or life threatening deterioration of the following system(s) required my full and direct attention, intervention and personal management. The time I documented below is in addition to time spent performing reported procedures but includes the following listed in this critical care notation. Medical Decision Making - Medical Records Medical records reviewed: Yes: I reviewed the patient's medical records. - Neftali Inquiry Pt receiving controlled substance: No Vital Signs: 07/14/20 21:34 Temperature 98.1 F Temperature Source Oral Pulse Rate [Left Brachial] 70 Respiratory Rate 17 Blood Pressure [Left Arm] 144/100 H Blood Pressure Mean [Left Arm] 114 Blood Pressure Source [Left Arm] Automatic Cuff Blood Pressure Position [Left Arm] Sitting 02 Sat by Pulse Oximetry 96 Oxygen Delivery Method Room Air General Adult HPI - General Chief complaint: PAIN Stated complaint: Pain R side of ,face,neck Time Seen by Provider: 07/14/20 21:45 Mode of Arrival: Ambulatory Source of Information: Patient, Medical Record Limitations: No Limitations Description of Symptoms (Recalled from ER Triage Doc. by RN): Patient reports she was seen in the [facility] tonight around 1900. Patient reports right side head, neck and shoulder pain that worsens when she moves her right shoulder. She was treated for a cervical sprain in the [facility] and given Baclofen. Patient was unable to pick the prescription because insurance would not cover and by the time she got back with money the pharmacy was closed. Patient reports the pain is to severe for her to even lay in bed. - History of Present Illness HPI narrative: atraumatic pain rt neck and was seen at [facility] and now in ed w/o rash or fever and no sore throat - Onset (ago): hour(s) Location: neck Severity: moderate Quality: sharp Consistency: intermittent Associated symptoms: denies other symptoms Treatments prior to arrival: none - Related Data Home Medications Medication Instructions Recorded Confirmed aspirin 81 mg tablet,delayed 81 mg PO DAILY tab 12/07/17 11/30/19 release coenzyme Q10 100 mg capsule 100 mg PO DAILY cap 12/07/17 11/30/19 Venlafaxine HCl [Venlafaxine HCl 37.5 mg PO DAILY 06/23/18 11/30/19 ER] Previous Rx's Medication Instructions Recorded cetirizine 10 mg tablet 10 mg PO DAILY #30 tab 12/26/18 clopidogrel 75 mg tablet 75 mg PO DAILY #30 tab 04/20/19 losartan 50 mg tablet 50 mg PO DAILY #90 tab 10/08/19 ezetimibe 10 mg tablet See Rx Instructions .ROUTE 04/29/20 .COMPLEX #90 tab triamterene 37.5 0.5 tab PO DAILY #45 tab 04/29/20 mg-hydrochlorothiazide 25 mg tablet bisoprolol fumarate 5 mg tablet 5 mg PO DAILY #90 tab 05/09/20 pantoprazole 40 mg tablet,delayed 40 mg PO DAILY #90 tab 06/09/20 release Baclofen 5 mg PO BIDP PRN #20 tab 07/14/20 Allergies Allergy/AdvReac Type Severity Reaction Status Date / Time dexamethasone [From Decadron] Allergy Intermediate Hives/CHEST Verified 04/29/20 09:17 PAIN rosuvastatin [From CRESTOR] Allergy Intermediate Hives Verified 04/29/20 09:17 atorvastatin [ATORVASTATIN] Allergy Mild Hives Verified 04/29/20 09:17 colesevelam [From WELCHOL] Allergy Mild Hives Verified 04/29/20 09:17 niacin Allergy Mild Hives Verified 04/29/20 09:17 [From Niaspan Extended-Release] [facility] History - Hepatitis A Screen Drug use history?: No High risk sexual behaviors?: No History of sexually transmitt
[2020-07-14 22:01] VITALS: BP 116/78; PULSE 67; RESP 17; TEMP 36.7; O2SAT 99
== END 2020-07-14 22:10 | disposition home or self-care (01) ==
PROVIDERS: Emergency Provider Emergency Medicine; PCP Nurse Practitioner Family
DX: S16.1XXA Strain of muscle, fascia and tendon at neck level, initial encounter (principal); I10 Essential (primary) hypertension; E78.5 Hyperlipidemia, unspecified; K21.9 Gastro-esophageal reflux disease without esophagitis; Z79.899 Other long term (current) drug therapy; Z90.49 Acquired absence of other specified parts of digestive tract; Z95.5 Presence of coronary angioplasty implant and graft
CPT/HCPCS: 99201; 99281

== ENCOUNTER → 2020-07-21 11:25 | Outpatient (CLI) | payer MEDICARE, OTHER, SELFPAY ==
--- NOTE | 2020-07-21 11:29 | XR_ITS ---
PROCEDURE: XR CERVICAL SPINE 4V CLINICAL INDICATION: Neck pain COMPARISON: No exams were available for comparison FINDINGS: No fracture or dislocation. No lytic or blastic change. There is normal mineralization. There is mild degenerative disc disease at C5-C6. Mild foraminal narrowing noted on the right at C4-C5. There is some minimal foraminal narrowing at C5-C6 on the right. Other findings:None. IMPRESSION: Mild cervical spondylosis with degenerative disc disease at C5-C6 and foraminal narrowing on right at C4-C5 and to lesser degree at C5-C6 Dictated by: Umang De La Rosa MD 07/21/2020 16:57 Umang De La Rosa MD in [place] 07/21/2020 16:57
[2020-07-21 15:02] LABS: Basophils # 0.1 K/mm3 (0-0.2); Basophils % 0.7 % (0.1-2.0); Eosinophils # 0.3 K/mm3 (0.0-0.4); Eosinophils % 3.3 % (0.1-12.0); Hematocrit 43.5 % (37.0-47.0); Lymphocytes # 2.9 K/mm3 (0.7-4.5); Lymphocytes % 32.3 % (10-50); Mean Corpuscular HGB Conc 32.2 g/dL (31.8-35.4); Mean Corpuscular Hemoglobin 27.8 pg (27.0-31.2); Mean Corpuscular Volume 86.5 fl (81-99); Mean Platelet Volume 8.7 fl (7.4-10.4); Monocytes # 0.4 K/mm3 (0.1-1.0); Monocytes % 4.9 % (1.7-9.3); Neutrophils # 5.2 K/mm3 (1.8-7.8); Neutrophils % 58.6 % (37.0-80.0); Platelet Count 299 K/mm3 (142-424); Red Blood Count 5.03 M/mm3 (4.20-5.40); Red Cell Distribution Width 12.5 % (11.5-17.5); White Blood Count 8.9 K/mm3 (4.8-10.8)
[2020-07-21 15:03] LABS: Chloride 104 mmol/L (98-107); Potassium 4.6 mmoL/L (3.5-5.1); Sodium 139 mmol/L (136-145)
[2020-07-21 15:05] LABS: Blood Urea Nitrogen 13 mg/dl (7-17); Estimated Glomerular Filt Rate 73 ml/min (>60); GFR (African American) 88 ML/MIN (>60)
[2020-07-21 15:06] LABS: Alanine Aminotransferase 13 U/L (12-78); Albumin Level 4.4 g/dl (3.5-5.0); Albumin/Globulin Ratio 1.4 (1.1-1.8); Alkaline Phosphatase 105 U/L (38-126); Anion Gap 12.6 mEq/L (5-15); Aspartate Amino Transferase 23 U/L (14-36); Bilirubin,Total 0.6 mg/dl (0.2-1.3); Calcium 9.8 mg/dl (8.4-10.2); Carbon Dioxide 27 mmol/L (22.0-30.0); Globulin 3.1 g/dL (1.3-3.2); Glucose 108 mg/dl (74-100); Total Protein,Serum 7.5 g/dl (6.3-8.2)
[2020-07-21 15:11] LABS: C-Reactive Protein 7.8 mg/L (0-4)
[2020-07-21 15:23] LABS: T4 (Thyroxine) 8.9 ug/dl (5.53-11.0)
[2020-07-21 15:27] LABS: Erythrocyte Sedimentation Rate 16 mm/hr (0-30)
[2020-07-21 15:37] LABS: Thyroid Stimulating Hormone 2.15 uIU/mL (0.465-4.68)
== END ==
PROVIDERS: PCP Physician Assistant; Visit Provider Physician Assistant
DX: M54.2 Cervicalgia (principal); W19.XXXA Unspecified fall, initial encounter; R00.1 Bradycardia, unspecified
CPT/HCPCS: 72050; 80053; 84436; 84443; 85025; 85651; 86140

== ENCOUNTER → 2020-08-03 09:32 | Outpatient (CLI) | payer MEDICARE, OTHER, SELFPAY ==
[2020-08-03 13:40] LABS: Coronavirus 19 IgG Antibody Negative (Negative); Coronavirus 19 IgM Antibody Negative (Negative)
== END ==
PROVIDERS: PCP Nurse Practitioner Family; Visit Provider Surgery
DX: Z01.89 Encounter for other specified special examinations (principal); Z12.11 Encounter for screening for malignant neoplasm of colon
CPT/HCPCS: 36415; 86328

== ENCOUNTER 2020-08-05 07:19 | Day surgery (SDC) | payer MEDICARE, OTHER, SELFPAY ==
[2020-08-05] VITALS (7 sets, daily range): BP systolic 88–145; BP diastolic 49–76; PULSE 53–64; RESP 18; TEMP 36.4–36.8; O2SAT 96–97; BMI 35.7
--- NOTE | 2020-08-05 07:55 | P.PN_ITS ---
[facility] Anesthesia Checklist - Patient Identification Patient Identification: Arm Band, Verbal (Name & ) - Structural Data Admitted From: Home Planned Operative Procedure/s: colon Consent for Planned Operative Procedure(s) Verified: Yes Verified Documents: History and Physical - NPO Status Verified Time NPO: 00:00 - Additional verifications Anesthesia Reactions: No Hx Blood Transfusions: No Blood Transfusion Reaction: No Cephalosporin Allergy: No Previous Colonoscopy: Yes - Cardiovascular Assessment Heart Sounds: S1 & S2 Pulse Strength: Baseline Pulse Rhythm: Regular Peripheral Edema: No - Airway Assessment C-Spine Mobility Assessed: Yes TMJ Mobility Assessed: Yes Dentition: Good Dentition - Neurological Assessment Level of Consciousness: Awake, Alert, Appropriate Hx Seizures: No Numbness or tingling in extremities: No - Anesthesia Plan Anesthesia Risk discussed: Yes Anesthesia Plan: Verified ASA Class: III Anesthesia Type: MAC [facility] History I have reviewed the patient's past medical history: Yes Medical History: Reports:: Coronary Artery Disease, Gastroesophageal Reflux Disease(GERD), Hyperlipidemia, Hypertension, Ulcer Denies:: Cancer, Diabetes Mellitus Type 1, Diabetes Mellitus Type 2, Internal Pacemaker, Lung Disease, MRSA, Seizures *Have you ever received a pneumonia vaccine?: Yes *Have you received a flu vaccine this season?: Yes Anesthesia experience/problems:: none Laterality Cases: Left: Breast Biopsy, Right: Total Knee Replacement Other Surgeries: Yes: Cardiac Catheterization, Cholecystectomy, Colonoscopy, Coronary Stent, Tubal Ligation, Other. No: Pacemaker Amputation: No Fractures: Yes (RIBS) - *Social History Smoking Status: Never smoker Alcohol Intake: never Substance Use Type: denies use *Occupational Status:: disabled Housing: house Household Members: family *Travel in the last 8 weeks: None Family Hx:: No significant family history
--- NOTE | 2020-08-05 09:18 | HMH.SCOPE ---
- Procedure: Date: 08/05/20 Patient Date of :: 1960 Procedure Performed:: Total colonoscopy with biopsies and polypectomy by snare and biopsy forceps Indications:: Patient presents for follow-up colonoscopy. She is a 60-year-old female with a positive family history of colon cancer in her mother and 2 brothers. She has had numerous colonoscopies in the past. Dr. Medina had performed colonoscopies in December 2011, June 2012, October 2013, December 2014. Formed colonoscopy April 2017 and she had a tubular adenoma. I had recommended a 3-year follow-up colonoscopy. However, the patient was referred to me for colonoscopy due to pelvic pain and she had a colonoscopy in June 2018 which revealed tubular adenoma. Given her history of polyps and strong family history of colon cancer plan was for follow-up colonoscopy. She is asymptomatic regarding symptoms of hematochezia. Performing Provider:: Polo Quevedo MD Referring Provider:: None Sedation:: MAC sedation Procedure:: Patient was taken to endoscopy procedure room. She was positioned in lateral decubitus position. Adequate intravenous sedation was achieved with titration of propofol. Variable stiffness Olympus colonoscope was inserted via the anus. With some minor difficulty due to floppiness of the sigmoid colon it was ultimately advanced to the cecum. She had some minor mucosal irregularities in the cecum and several cold biopsies were obtained. Colonoscope was withdrawn through the colon with careful surveillance. In the descending colon there is a small diminutive polyp which was removed with cold cutting snare. In the distal sigmoid colon there was a sessile polyp possibly a serrated adenoma measuring about 8 or 9 mm removed in a piecemeal fashion using cold cutting snare. There were multiple hyperplastic appearing polyps in the rectosigmoid and rectum removed with biopsy forceps. Retroflexion within the rectum revealed nonpathologic internal hemorrhoids. Colonoscope was withdrawn. Findings:: Mucosal irregularities diffusely in the cecum Small descending colon polyp removed with snare 8 to 9 mm sessile polyp in the distal sigmoid colon removed with cold snare Multiple hyperplastic appearing rectosigmoid polyps Recommendations:: Likely repeat colonoscopy 3 years Complications:: None immediately apparent Estimated blood obtained (mL): 3
== END 2020-08-05 10:20 | disposition home or self-care (01) ==
LOC: OUTP 07:21
PROVIDERS: PCP Physician Assistant; Visit Provider Surgery
PROC: 0DJD8ZZ Inspection of Lower Intestinal Tract, Via Natural or Artificial Opening Endoscopic (ICD-10-PCS; CPT 45380; principal; 2020-08-05 08:30)
DX: Z12.11 Encounter for screening for malignant neoplasm of colon (principal); Z86.010 Personal history of colon polyps; Z80.0 Family history of malignant neoplasm of digestive organs; K63.89 Other specified diseases of intestine; K63.5 Polyp of colon; I25.10 Atherosclerotic heart disease of native coronary artery without angina pectoris; K21.9 Gastro-esophageal reflux disease without esophagitis; E78.5 Hyperlipidemia, unspecified; I10 Essential (primary) hypertension; Z96.651 Presence of right artificial knee joint; Z90.49 Acquired absence of other specified parts of digestive tract; Z79.899 Other long term (current) drug therapy
CPT/HCPCS: 45380; 45385; 88305

== ENCOUNTER → 2020-08-21 15:20 | Outpatient (CLI) | payer MEDICARE, OTHER, SELFPAY | PROVIDERS: Visit Provider Nurse Practitioner Family | DX: N39.0 Urinary tract infection, site not specified (principal) | CPT/HCPCS: 87086 ==

== ENCOUNTER → 2020-11-05 06:50 | Outpatient (CLI) | payer MEDICARE, OTHER, SELFPAY ==
--- NOTE | 2020-11-05 06:55 | NM_ITS ---
APPROVED REPORT Exam: Nuclear Stress Test Indication: cad, hyperlipidemia, fm hx, c.p., sob Patient Location: Outpatient Stress Tech: Lilian Patel [place] Tech:Maddie Silver, ARRT, RT (R)(N) Ht: 5 ft 3 in Wt: 214 lbs Bra Size: 36C HR: 66 bpm BP: 147/73 mmHg BSA: 1.99 m2 BMI: 37.9 History: cad, hyperlipidemia, fm hx, c.p., sob Procedure: Patient received a 0.4 mg of intravenous Lexiscan, resting heart rate 66 bpm, resting blood pressure 147/73 mmHg, with Lexiscan maximum heart rate achived was 102 bpm which is Less than 85 % of the maximum predicted heart rate and blood pressure was 158/72 mmHg. With Lexiscan, patient denied any complaint of chest pain. Electrocardiogram Resting electrocardiogram showed sinus rhythm, with Lexiscan there is less than 1.[address] segment depression noted from the baseline EKG. The EKG portion of the Lexiscan is nondiagnostic. Cardiac Stress and Resting SPECT Images: Cardiac Stress and Resting SPECT images were obtained using technetium 99m Myoview 31.3 mCi stress and 10.52 mCi at rest. Gated SPECT for analysis of segmental wall motion and calculation of the ejection fraction also done. Prone images were also obtained. Cardiac stress and resting SPECT images show uniform myocardial activity without segmental perfusion abnormality, computer derived ejection fraction is over 65% with no regional wall motion abnormality, right ventricle is normal size and contractility. Conclusion: 1. The EKG portion of the Lexiscan is nondiagnostic. 2. No scintigraphic evidence of reversible ischemia seen, computer derived ejection fraction is over 65% with no regional wall motion abnormality, right ventricle is normal size and contractility. 3. Normal Lexiscan Myoview study. Electronically signed by : Carl Del Rosario, 11/06/2020 13:26:14
--- NOTE | 2020-11-05 06:55 | CA_ITS ---
APPROVED REPORT Exam: Pharmacologic Technologist: Lilian Patel Ht: 5 ft 3 in Wt: 211 lbs BSA: 1.98 m2 HR: 66 bpm BP: 147/73 mmHg Indications: Chest pain, Shortness of Breath Medical History Medications: Aspirin,,,,, Losartan,,,,, Pantoprazole,,,,, CloPIdogrel,,,,, BisOPROLOL,,,,, BisOPROLOL,,,,, Baclofen,,,,, Venlafaxine,,,,, CoQ10,,,,, Evolocumab,,,,, CetIRIizine,,,,, Ibmqnrsccv-Hojkceetggtcw-Vfce,,,,, Stress Test Details Test: LEXISCAN HR Resting HR: 69 bpm Max Heart Rate (APMHR): 158 bpm Max HR Achieved: 115 bpm Target HR (85% APMHR): 134 bpm % of APMHR: 72 Recovery HR: 86 bpm BP Resting BP: 147.0/73.0 mmHg Max BP: 158.0/72.0 mmHg Recovery BP: 148.0/73.0 mmHg ECG Resting ECG: Normal sinus rhythm Clinical Exercise duration: 04:01 min Highest Stage Achieved: Exercise capacity: 1.0 METs Stress ECG Conclusion Symptoms: Shortness of air, mild malaise, nausea/vomiting. No chest pain. Arrythmias/Ectopy: None ST-T Changes: No significant changes. Conclusion: Unremarkable Lexiscan stress. Myoview images reported separately. Electronically signed by : Carl Del Rosario, 11/06/2020 13:19:52
--- NOTE | 2020-11-05 08:56 | CA_ITS ---
APPROVED REPORT EXAM: Comprehensive 2D, Doppler, and color-flow Echocardiogram Edge Polisher: Fryea Iyer RCS, RVS Ht: 5 ft 2 in Wt: 211lbs BSA: 1.96 BP: 140/53 mmHg Indications: CP, SOB. Hx-coronary stent, GERD, Ulcer, BUTCH 2D Dimensions LVDs 3.85 cm LVOT 1.92 cm (M/F) 1.5-2.5 M-Mode Dimensions RVDd 2.38 cm (0.9-2.6) LA Diam 3.70 cm (1.9-4.0) LVDd 4.90 cm (3.5-5.7) Ao Diam 3.03 cm (2.0-3.7) LVDs 2.92 cm (3.5-5.7) IVSd 0.80 cm (0.6-1.1) PWd 0.67 cm (0.6-1.1) EF (Teich) 70.90% EPSs 0.44 cm FS 40.40% EDV (Teich) 112.80 mL ESV (Teich) 32.80 mL LV Diastology E Decel Time 223.00 (160-240 msec) E/A Ratio 0.93 MED E' 6.60 (< 7 cm/sec) MED A' 13.20 cm/s E'/MED E' Ratio 11.41 (>14) LAT E' 10.50 (<10 cm/sec) LAT A' 14.30 cm/s E/LAT E' Ratio 7.17 (>14) Aortic Valve AO Peak GR. 8.20 mmHg Mitral Valve MV A Velocity 81.00 (40-130 cm/s) E/A Ratio 0.93 MV Decel. Time 223.00 (160-240 ms) Tricuspid Valve TR P. Velocity 263.00 cm/s RAP Estimate 10.00 mmHg RVSP 37.70 mmHg Left Ventricle Left atrium is mildly enlarged, left ventricle is normal size, left ventricle wall thickness is upper limit of the normal, there is preserved left ventricular systolic function, visually estimated ejection fraction 55% with no obvious regional wall motion abnormality. Grade 1 diastolic dysfunction seen without tissue Doppler evidence of raise left atrial pressure. Right Ventricle Right atrium and right ventricle normal size and contractility. Aortic Valve Aortic valve is minimally thickened and fibrosed, there is no aortic stenosis or aortic insufficiency. Mitral Valve Mitral valve is grossly normal, there is trace mitral regurgitation. Tricuspid Valve Tricuspid valve is grossly normal, there is mild tricuspid regurgitation tricuspid regurgitation jet velocity is inadequate for calculation of the right ventricular systolic pressure. Pulmonic Valve Pulmonic valve is poorly visualized. Great Vessels Aortic root is normal size. Pericardium No significant pericardial effusion noted. Conclusion 1. Normal left ventricular size, preserved left ventricular systolic function, visually estimated ejection fraction 55% with no regional wall motion abnormality, grade 1 diastolic dysfunction seen without tissue Doppler evidence of raise left atrial pressure. 2. Trace mitral and mild tricuspid regurgitation. 3. No significant pericardial effusion noted. Electronically signed by : Carl Del Rosario, 11/06/2020 14:35:14
--- NOTE | 2020-11-05 08:56 | HMH.ITSHM ---
Current Home Medications as stated by this patient Alfreda Lai or [facility] representatives. []TRIAMTERENE PANTOPRAZOLE BISOPROLOL ASA AMLODIPINE VENLAFAXINE EVOLOCUMAB CLOPIDOGREL CETIRIZINE BACLOFEN
== END ==
PROVIDERS: PCP Physician Assistant; Visit Provider Nurse Practitioner Family
DX: R07.89 Other chest pain (principal); E78.2 Mixed hyperlipidemia; I10 Essential (primary) hypertension; I25.10 Atherosclerotic heart disease of native coronary artery without angina pectoris; Z95.5 Presence of coronary angioplasty implant and graft; R07.9 Chest pain, unspecified
CPT/HCPCS: 36415; 78452; 80061; 80076; 93017; 93306; A9502; J2785

== ENCOUNTER → 2020-11-05 10:10 | Outpatient (CLI) | payer MEDICARE, OTHER, SELFPAY ==
[2020-11-05 12:22] LABS: Alanine Aminotransferase 13 U/L (12-78); Albumin Level 4.6 g/dl (3.5-5.0); Alkaline Phosphatase 105 U/L (38-126); Aspartate Amino Transferase 26 U/L (14-36); Bilirubin,Direct 0.3 mg/dl (0.0-0.4); Bilirubin,Indirect 0.4 mg/dL (0.0-0.9); Bilirubin,Total 0.7 mg/dl (0.2-1.3); Bilirubin,Unconjugated 0.4 mg/dL (0.0-1.1); Chol/HDL Ratio 3.2 (1-3.5); Cholesterol 172 mg/dl (140-200); HDL Cholesterol 53 mg/dl (40-60); Total Protein,Serum 7.9 g/dl (6.3-8.2); Triglycerides 162 mg/dl (30-150); VLDL Cholesterol 32 mg/dL (0-40)
[2020-11-05 12:33] LABS: Direct LDL Cholesterol 100.05 mg/dL (100-129)
== END ==
PROVIDERS: Visit Provider Nurse Practitioner Family
DX: E78.2 Mixed hyperlipidemia (principal); I10 Essential (primary) hypertension; I25.10 Atherosclerotic heart disease of native coronary artery without angina pectoris; R07.89 Other chest pain; Z95.5 Presence of coronary angioplasty implant and graft
CPT/HCPCS: 36415; 80061; 80076

== ENCOUNTER 2020-11-19 13:17 | Emergency (ER) | payer MEDICARE, OTHER, SELFPAY ==
[2020-11-19 13:17] VITALS: BP 125/69; PULSE 64; RESP 19; TEMP 36.8; O2SAT 98; BMI 37.7
--- NOTE | 2020-11-19 13:36 | HMH.EDUTC ---
[facility] [place] Clinical Impression: Encounter for laboratory testing for COVID-19 virus Disposition: Home, Self-Care Condition on Discharge: Good Instructions: DI for COVID-19 (Suspected or Confirmed ), Coronavirus Disease 2019, Preventing the Spread of Coronavirus Discharge Instructions, Cough (Alternative Therapy) Additional Instructions: *Monitor Temp, Over the counter Motrin or Tylenol as directed/as needed Tylenol every 4 hours and Motrin every 6 hours (as long as your family doctor has told you that you can take it) for fever or pain. and straight to ER if unable to lower temp less than 101.0 after medication given *Warm salt water gargles may help to soothe the throat *Throat Lozenges *Warm fluids like tea with honey may help to soothe the throat *Sleep elevated *Humidifier/Vaporizer Follow up IMMEDIATELY for new or worsening symptoms or no Noticeable improvement over the next 48-72 hours. 911 for difficulty breathing or swallowing You were tested for today for COVID19 your test result should be back in the next 24-48 hours, you may call to the [facility] to see if your test results are back in the next 48 hours [phone] [facility] hours are 9am-9pm You was given a handout with instructions for Self Quarantine and Self isolation for while you wait on test results and what to do if they are positive If you are positive the Health Dept will be contacting you also Referrals: Olive Lal APRN [Primary Care Provider] - As needed Time of Disposition: 13:39 Medical Decision Making - Neftali Inquiry Pt receiving controlled substance: No Neftali was queried for this patient: No Vital Signs: 11/19/20 13:17 Temperature 98.2 F Temperature Source Oral Pulse Rate [Left Radial] 64 Respiratory Rate 19 Blood Pressure [Right Arm] 125/69 Blood Pressure Mean [Right Arm] 87 Blood Pressure Source [Right Arm] Automatic Cuff Blood Pressure Position [Right Arm] Sitting 02 Sat by Pulse Oximetry 98 Oxygen Delivery Method Room Air Orders (Tests/Meds): ORDERS Category Date Time Status Covid-19 Nasal PCR ([facility]) Routine Lab 11/19/20 13:18 Ordered [facility] [place] HPI - General Stated complaint: covid exposure Time Seen by Provider: 11/19/20 13:36 Mode of Arrival: Ambulatory Source of Information: Patient Limitations: No Limitations Description of Symptoms (Recalled from Triage Doc. by RN): cough for 2 days, no exposure. Wants a covid test HEENT Symptoms (Recalled from RN notes): No Resp Symptoms (Recalled from RN notes): Yes (cough) Skin Symptoms (Recalled from RN notes): No MS Symptoms (Recalled from RN notes): No Functional Status (Recalled from RN notes): wnl - History of Present Illness Provider Complaint: Patient state that she has had cough for a couple of days and had some diarrhea this morning State that family was concerned that she may have COVID and wanted her to get tested State that she has not had any fever that she is aware of - Related Data Home Medications Medication Instructions Recorded Confirmed aspirin 81 mg tablet,delayed 81 mg PO DAILY tab 12/07/17 11/11/20 release coenzyme Q10 100 mg capsule 100 mg PO DAILY cap 12/07/17 11/11/20 Cetirizine HCl 10 mg PO DAILY 07/31/20 11/11/20 Clopidogrel Bisulfate [Plavix 75mg 75 mg PO DAILY 07/31/20 11/11/20 Tab] Evolocumab [Repatha SureClick] 140 mg SQ Q2W 07/31/20 11/11/20 bisoproloL fumarate [Bisoprolol 5 mg PO DAILY 07/31/20 11/11/20 Fumarate] pantoprazole 40 mg tablet,delayed 40 mg PO DAILY tab 10/28/20 11/11/20 release Previous Rx's Medication Instructions Recorded Baclofen 5 mg PO BIDP PRN #20 tab 07/14/20 lywsjnaiou-kdmwqopwpfeys-dnpprefn 1 cap PO Q6H PRN #30 cap 07/15/20 50 mg-300 mg-40 mg capsule amlodipine 5 mg tablet 5 mg PO DAILY #30 tab 10/28/20 triamterene 37.5 0.5 tab PO DAILY #30 tab 10/28/20 mg-hydrochlorothiazide 25 mg tablet venlafaxine 37.5 mg 37.5 mg PO DAILY #90 cap 11/18/20 capsule,extended release 24 h
[2020-11-19 14:10] VITALS: BP 125/69; PULSE 64; RESP 19; TEMP 36.8; O2SAT 98
== END 2020-11-19 14:11 | disposition home or self-care (01) ==
PROVIDERS: Emergency Provider Nurse Practitioner; PCP Nurse Practitioner Family
DX: Z20.822 Contact with and (suspected) exposure to COVID-19 (principal); R05 Cough; I25.10 Atherosclerotic heart disease of native coronary artery without angina pectoris; K21.9 Gastro-esophageal reflux disease without esophagitis; I10 Essential (primary) hypertension; E78.5 Hyperlipidemia, unspecified
CPT/HCPCS: G0463; 99202; U0003

== ENCOUNTER 2020-11-22 10:12 | Emergency (ER) | payer MEDICARE, OTHER, SELFPAY ==
[2020-11-22 10:15] VITALS: BP 158/56; PULSE 75; RESP 14; TEMP 36.8; O2SAT 95; BMI 37.7
--- NOTE | 2020-11-22 10:30 | XR_ITS ---
PROCEDURE: XR LUMBAR SPINE 2-3V Referring Doctor: Olive Lal Patient Age:60Y CLINICAL INDICATION: pain Lumbar pain COMPARISON: CT ABDPELW/WO CT ABD PELVIS W/WO CONTRAST from 09/05/2017 CR XR THORACIC SPINE 3V from 11/22/2020 FINDINGS: The lumbar vertebral bodies appear intact with normal alignment. No compression fracture or acute findings Only minor degenerative changes: . There is only slight disc space narrowing and degenerative disc changes at L5/S1. A previous 2017 CT abdomen showed only very mild central disc bulge at this level a and was unimpressive at that time. . On today's study there is a very slight subtle levocurvature of the T-spine. Although this could be positional of there may be some subtle narrowing at the right L3/4 disc that contributes. Pedicles transverse processes intact. IMPRESSION: No acute findings.. Lumbar spine intact with only trace degenerative changes. Mild degenerative disc space narrowing L5/S1 and borderline disc space narrowing to the right right at L3/4. Dictated by: Mitul Calderon MD 11/23/2020 08:12 Mitul Calderon MD in [place] 11/23/2020 08:12
--- NOTE | 2020-11-22 10:30 | XR_ITS ---
PROCEDURE: XR THORACIC SPINE 3V Referring Doctor: Olive Lal Patient Age:60Y CLINICAL INDICATION: pain Thoracic and lumbar back COMPARISON: CR XR CHEST 2V from 11/19/2019 FINDINGS: AP and lateral views of the thoracic spine are compared to a chest film from October 2019 No acute findings in the thoracic spine. No compression fractures. There may be some subtle borderline disc space narrowing at T8-9 and T9-10 disc levels which may reflect some early degenerative disc changes but this is stable unimpressive period of gradual kyphosis through this region similar to previous studies. No compression fracture evident. No lesions appreciated. Pedicles are intact. No no paraspinal mass.. IMPRESSION: . T-spine intact-no fracture or lesion evident. Very minor degenerative changes. No acute findings. Dictated by: Mitul Calderon MD 11/23/2020 08:02 Mitul Calderon MD in [place] 11/23/2020 08:02
--- NOTE | 2020-11-22 10:41 | HMH.EDUTC ---
[facility] [place] Clinical Impression: Back pain with left-sided sciatica Disposition: Home, Self-Care Condition on Discharge: Good Instructions: Low Back Pain, DI for Back Pain With Sciatica Additional Instructions: if symptoms worse retrun or be seen in ed follow up with pcp on tuesday meds as ordered Prescriptions: predniSONE [Prednisone 20mg Tab] 20 mg PO BID #10 tab Transmission Status: Pending to [facility] #[id number] Referrals: Olive Lal APRN [Primary Care Provider] - Time of Disposition: 11:23 Medical Decision Making - Neftali Inquiry Pt receiving controlled substance: No Vital Signs: 11/22/20 10:15 Temperature 98.2 F Temperature Source Oral Pulse Rate [Right Brachial] 75 Respiratory Rate 14 Blood Pressure [Right Arm] 158/56 H Blood Pressure Mean [Right Arm] 90 Blood Pressure Source [Right Arm] Automatic Cuff Blood Pressure Position [Right Arm] Sitting 02 Sat by Pulse Oximetry 95 Oxygen Delivery Method Room Air Orders (Tests/Meds): ORDERS Category Date Time Status XR lumbar spine 2-3V Stat Exams 11/22/20 10:30 Taken XR thoracic spine 3V Stat Exams 11/22/20 10:30 Taken [facility] [place] - General Chief complaint: Urgent Treatment Center Stated complaint: back pain Time Seen by Provider: 11/22/20 10:41 Mode of Arrival: Ambulatory Source of Information: Patient Limitations: No Limitations Description of Symptoms (Recalled from Triage Doc. by RN): PATIENT C/O MID TO LOW BACK PAIN THAT STARTED TUESDAY HEENT Symptoms (Recalled from RN notes): No Resp Symptoms (Recalled from RN notes): No Skin Symptoms (Recalled from RN notes): No MS Symptoms (Recalled from RN notes): No Functional Status (Recalled from RN notes): WNL - History of Present Illness Provider Complaint: 60 yr old female presents for back pain that radiates down left leg that started on . Pt states she was washing the dishes and sweeping the floor and that evening the pain started and has slowly increased. Pt states is feels something catching in low back. no loss of bowel or bladder - Related Data Home Medications Medication Instructions Recorded Confirmed aspirin 81 mg tablet,delayed 81 mg PO DAILY tab 12/07/17 11/11/20 release coenzyme Q10 100 mg capsule 100 mg PO DAILY cap 12/07/17 11/11/20 Cetirizine HCl 10 mg PO DAILY 07/31/20 11/11/20 Clopidogrel Bisulfate [Plavix 75mg 75 mg PO DAILY 07/31/20 11/11/20 Tab] Evolocumab [Repathshima WadsworthEverick] 140 mg SQ Q2W 07/31/20 11/11/20 bisoproloL fumarate [Bisoprolol 5 mg PO DAILY 07/31/20 11/11/20 Fumarate] pantoprazole 40 mg tablet,delayed 40 mg PO DAILY tab 10/28/20 11/11/20 release Previous Rx's Medication Instructions Recorded Baclofen 5 mg PO BIDP PRN #20 tab 07/14/20 vussfhhlfm-qtdwuahffwioj-mriazody 1 cap PO Q6H PRN #30 cap 07/15/20 50 mg-300 mg-40 mg capsule amlodipine 5 mg tablet 5 mg PO DAILY #30 tab 10/28/20 triamterene 37.5 0.5 tab PO DAILY #30 tab 10/28/20 mg-hydrochlorothiazide 25 mg tablet venlafaxine 37.5 mg 37.5 mg PO DAILY #90 cap 11/18/20 capsule,extended release 24 hr predniSONE [Prednisone 20mg 20 mg PO BID #10 tab 11/22/20 Tab] Allergies Allergy/AdvReac Type Severity Reaction Status Date / Time dexamethasone [From Decadron] Allergy Intermediate Hives/CHEST Verified 11/11/20 08:53 PAIN rosuvastatin [From CRESTOR] Allergy Intermediate Hives Verified 11/11/20 08:53 atorvastatin [ATORVASTATIN] Allergy Mild Hives Verified 11/11/20 08:53 colesevelam [From WELCHOL] Allergy Mild Hives Verified 11/11/20 08:53 niacin Allergy Mild Hives Verified 11/11/20 08:53 [From Niaspan Extended-Release] - Worker's Comp Is this a Worker's Comp case?: No [facility] History - Hepatitis A Screen Drug use history?: No High risk sexual behaviors?: No History of sexually transmitted infection?: No Currently employed?: No Childcare worker?: No Do you have indoor plumbing?: Yes Do you have electricit
[2020-11-22 11:37] VITALS: BP 158/56; PULSE 75; RESP 14; TEMP 36.8; O2SAT 95
== END 2020-11-22 11:48 | disposition home or self-care (01) ==
PROVIDERS: Emergency Provider Nurse Practitioner Family; PCP Nurse Practitioner Family
DX: M54.42 Lumbago with sciatica, left side (principal); I25.10 Atherosclerotic heart disease of native coronary artery without angina pectoris; K21.9 Gastro-esophageal reflux disease without esophagitis; E78.5 Hyperlipidemia, unspecified; I10 Essential (primary) hypertension; Z79.899 Other long term (current) drug therapy
CPT/HCPCS: G0463; 72072; 72100; 96372; 99202; J1030

== ENCOUNTER → 2021-05-21 12:38 | Outpatient (CLI) | payer MEDICARE, OTHER, SELFPAY ==
--- NOTE | 2021-05-21 12:38 | MM_ITS ---
PROCEDURE: MM DIG SCREENING MAMM BI W/CAD Digital Breast Tomosynthesis Included CLINICAL INDICATION: Breast cancer screening COMPARISON: MG DXBI MM Dig mamm BI DX w/CAD from 09/27/2018 MG DXRT MM Dig mamm DX unilat RT CAD from 11/01/2018 MG MM DIG SCREENING MAMM BI W/CAD from 11/19/2019 TECHNIQUE: Standard CC and MLO images and 3D Tomosynthesis was obtained. R2 CAD reviewed. FINDINGS: There is dense fibroglandular tissue view making mammography somewhat less sensitive. Any palpable nodule should be managed clinical basis. Scattered benign-appearing calcifications. Biopsy clip is present in the 5-6 o'clock region of the right breast and in the upper inner aspect of the left breast in the periareolar region. No malignant appearing mass or malignant-appearing microcalcification. No skin thickening or architectural distortion. IMPRESSION: Benign findings. BI-RAD Category: 2 Benign Finding FOLLOW-UP: 1 YR 1 Year Follow-up (A letter has been sent to the patient regarding results of the study.) Dictated by: Umang De La Rosa MD 05/27/2021 09:21 Umang De La Rosa MD in [place] 05/27/2021 09:21
== END ==
PROVIDERS: PCP Nurse Practitioner Family; Visit Provider Physician Assistant
DX: Z12.31 Encounter for screening mammogram for malignant neoplasm of breast (principal)
CPT/HCPCS: 77063; 77067

== ENCOUNTER 2021-10-14 12:44 | Emergency (ER) | payer MEDICARE, OTHER, SELFPAY ==
[2021-10-14 13:35] VITALS: BP 143/72; PULSE 78; RESP 18; TEMP 37; O2SAT 99; BMI 35.5
--- NOTE | 2021-10-14 13:38 | XR_ITS ---
PROCEDURE: XR RIBS BI MIN 4V W CXR1V CLINICAL INDICATION: PAIN COMPARISON: CR CXR2 CHEST-AP VIEW ONLY from 12/04/2012 CR XR CHEST 2V from 11/19/2019 CR XR CHEST 2V from 11/27/2019 FINDINGS: Multiple views of the bilateral ribs show no obvious fracture. No lytic or blastic change. Frontal view of the chest shows no acute finding. A 3 mm calcific density overlies the lower pole of the left kidney and could represent left nephrolithiasis. IMPRESSION: Negative bilateral ribs. Possible left nephrolithiasis Dictated by: Umang De La Rosa MD 10/14/2021 14:07 Umang De La Rosa MD in [place] 10/14/2021 14:07
--- NOTE | 2021-10-14 14:53 | HMH.EDUTC ---
[facility] – [place] Dis[place] Clinical Impression: Rib pain on right side Disposition: Home, Self-Care Condition on Discharge: Good Instructions: How To Perform RICE (Rest, Ice, Compress, Elevate), Ibuprofen, Cyclobenzaprine Additional Instructions: *RICE, Rest the extremity, Ice 15-20 minutes 3-4 times daily, Compress- wear the luis wrap as discussed as much as possible to help reduce swelling and pain, Elevate the extremity when at rest Over the counter Tylenol and patches may help with pain *Ibuprofen as directed on package every 6-8 hours as needed for pain an inflammation. If need something more can take Tylenol in between doses of Ibuprofen to help Immediately follow up with your family doctor for new or worsening of symptoms, or no noticeable improvement over the next 3-5 days Return if needed Follow up with Family Doctor for further treatment and evaluation of finding on Xray as discussed if you start having pain in left side area Straight to ER if any life threatening symptoms Prescriptions: Cyclobenzaprine HCl [Flexeril 10mg tablet] 10 mg PO Q8HP PRN 30 Days #90 tab PRN Reason: Muscle Spasm Transmission Status: Pending to [facility] #[id number] Referrals: Olive Lal APRN [Primary Care Provider] - As needed Kristofer Glover MD [Staff Physician] - Time of Disposition: 15:10 Medical Decision Making - Neftali Inquiry Pt receiving controlled substance: No Neftali was queried for this patient: No Vital Signs: 10/14/21 13:35 Temperature 98.6 F Temperature Source Oral Pulse Rate [Right Brachial] 78 Respiratory Rate 18 Blood Pressure [Right Arm] 143/72 H Blood Pressure Mean [Right Arm] 95 Blood Pressure Source [Right Arm] Automatic Cuff Blood Pressure Position [Right Arm] Sitting 02 Sat by Pulse Oximetry 99 Oxygen Delivery Method Room Air Orders (Tests/Meds): ED MEDICATIONS Discontinued Medications Generic Name Dose Route Start Last Admin Trade Name Freq PRN Reason Stop Dose Admin Ketorolac Tromethamine 60 mg 10/14/21 15:06 Ketorolac 60mg/2ml Vial IM 10/14/21 15:07 ONCE ONE - Radiology Data #1 Image(s): Chest (with bilateral rivs) Negative bilateral ribs. Possible left nephrolithiasis Medical Decision Narrative: Patient states that she has taken both TOradol and Flexeril in the past without complications or reactions Discussed Xray finding with patient denies pain in left flank area at this time Recommended follow up with the PCP for further treatment and monitoring and referral to Urology if needed [facility] [place] HPI - General Stated complaint: right side hip pains Time Seen by Provider: 10/14/21 14:54 Mode of Arrival: Ambulatory Source of Information: Patient Limitations: No Limitations Description of Symptoms (Recalled from Triage Doc. by RN): PATIENT C/O RIGHT SIDE RIB PAIN X 3 DAYS HEENT Symptoms (Recalled from RN notes): No Resp Symptoms (Recalled from RN notes): No Skin Symptoms (Recalled from RN notes): No MS Symptoms (Recalled from RN notes): Yes Functional Status (Recalled from RN notes): WNL - History of Present Illness Provider Complaint: Patient states that she has been having pain in her right ribs for the last 3 days States that she has been leaning over the washer and doing alot of sweeping around the house and feels like she pulled something or may have broke a rib so she came in to get checked Onset (ago): hour(s) - Related Data Home Medications Medication Instructions Recorded Confirmed aspirin 81 mg tablet,delayed 81 mg PO DAILY tab 12/07/17 06/23/21 release coenzyme Q10 100 mg capsule 100 mg PO DAILY cap 12/07/17 06/23/21 Previous Rx's Medication Instructions Recorded Baclofen 5 mg PO BIDP PRN #20 tab 07/14/20 eyetzdwgyp-nvxgeqzoygzog-fpqxrrbo 1 cap PO Q6H PRN #30 cap 07/15/20 50 mg-300 mg-40 mg capsule tramadol 50 mg tablet 50 mg PO Q8H #20 tab 11/24/20 clopidogrel 75 mg tablet 75 mg PO DAILY #30 tab 02/25/21 pantoprazole 40 mg ta
[2021-10-14 15:12] VITALS: BP 143/72; PULSE 78; RESP 18; TEMP 37; O2SAT 99
== END 2021-10-14 15:23 | disposition home or self-care (01) ==
PROVIDERS: Emergency Provider Nurse Practitioner; PCP Nurse Practitioner Family
DX: R07.9 Chest pain, unspecified (principal); K21.9 Gastro-esophageal reflux disease without esophagitis; E78.5 Hyperlipidemia, unspecified; I10 Essential (primary) hypertension; I25.10 Atherosclerotic heart disease of native coronary artery without angina pectoris; Z79.899 Other long term (current) drug therapy
CPT/HCPCS: G0463; 71111; 96372; 99202

== ENCOUNTER → 2021-12-16 07:42 | Outpatient (CLI) | payer MEDICARE, OTHER, SELFPAY ==
[2021-12-16 08:35] LABS: Basophils # 0.1 K/mm3 (0-0.2); Basophils % 1.3 % (0.1-2.0); Eosinophils # 0.4 K/mm3 (0.0-0.4); Eosinophils % 3.9 % (0.1-12.0); Hematocrit 43.6 % (37.0-47.0); Hemoglobin 14.5 g/dL (12.2-16.2); Lymphocytes # 3.2 K/mm3 (0.7-4.5); Lymphocytes % 31.8 % (10-50); Mean Corpuscular HGB Conc 33.3 g/dL (31.8-35.4); Mean Corpuscular Hemoglobin 28.5 pg (27.0-31.2); Mean Corpuscular Volume 85.6 fl (81-99); Monocytes # 0.5 K/mm3 (0.1-1.0); Monocytes % 5.1 % (1.7-9.3); Neutrophils # 5.8 K/mm3 (1.8-7.8); Neutrophils % 57.9 % (37.0-80.0); Platelet Count 340 K/mm3 (142-424); Red Cell Distribution Width 13.2 % (11.5-17.5); White Blood Count 10.1 K/mm3 (4.8-10.8)
[2021-12-16 08:39] LABS: Hemoglobin A1C 6.2 % (4.0-6.0)
[2021-12-16 09:14] LABS: Chloride 97 mmol/L (98-107); Sodium 135 mmol/L (136-145)
[2021-12-16 09:17] LABS: Alanine Aminotransferase 22 U/L (12-78); Albumin Level 4.4 g/dl (3.5-5.0); Alkaline Phosphatase 98 U/L (38-126); Aspartate Amino Transferase 36 U/L (14-36); Bilirubin,Direct 0.3 mg/dl (0.0-0.4); Bilirubin,Indirect 0.4 mg/dL (0.0-0.9); Bilirubin,Total 0.7 mg/dl (0.2-1.3); Bilirubin,Unconjugated 0.3 mg/dL (0.0-1.1); Blood Urea Nitrogen 13 mg/dl (7-17); Calcium 8.7 mg/dl (8.4-10.2); Carbon Dioxide 30 mmol/L (22.0-30.0); Cholesterol 162 mg/dl (140-200); Estimated Glomerular Filt Rate 72 ml/min (>60); GFR (African American) 88 ML/MIN (>60); Glucose 119 mg/dl (74-100); Total Protein,Serum 7.4 g/dl (6.3-8.2); Triglycerides 291 mg/dl (30-150); VLDL Cholesterol 58 mg/dL (0-40)
[2021-12-16 09:18] LABS: HDL Cholesterol 41 mg/dl (40-60)
[2021-12-16 09:29] LABS: Direct LDL Cholesterol 86.03 mg/dL (100-129)
[2021-12-16 09:36] LABS: Free T4 (Free Thyroxine) 1.17 ng/dl (0.78-2.19)
[2021-12-16 09:49] LABS: Thyroid Stimulating Hormone 3.51 uIU/mL (0.465-4.68)
== END ==
PROVIDERS: Visit Provider Nurse Practitioner Family
DX: E78.5 Hyperlipidemia, unspecified (principal); I11.9 Hypertensive heart disease without heart failure; I25.10 Atherosclerotic heart disease of native coronary artery without angina pectoris; R06.00 Dyspnea, unspecified; R60.9 Edema, unspecified; Z95.5 Presence of coronary angioplasty implant and graft; E11.9 Type 2 diabetes mellitus without complications
CPT/HCPCS: 36415; 80048; 80061; 80076; 83036; 84439; 84443; 85025

== ENCOUNTER 2022-01-10 17:31 | Emergency (ER) | payer MEDICARE, OTHER, SELFPAY ==
[2022-01-10 18:40] VITALS: BP 176/78; PULSE 76; RESP 18; TEMP 36.8; O2SAT 95; BMI 38.6
--- NOTE | 2022-01-10 19:07 | HMH.EDUTC ---
[facility] – [place] Disposition Condition on Discharge: Good Time of Disposition: 19:19 (report to rosa sent to ed) <Olive Lal - Last Filed: 01/10/22 19:16> <Bautista Eli - Last Filed: 01/10/22 22:37> Clinical Impression: Cervical radiculopathy Headache Qualifiers: Headache type: unspecified Headache chronicity pattern: acute headache Intractability: not intractable Qualified Code(s): R51.9 - Headache, unspecified Disposition: Home, Self-Care Instructions: DI for Neck Pain Additional Instructions: see pcp for follow up this week Prescriptions: predniSONE [Prednisone 20mg Tab] 20 mg PO BID #10 tab Transmission Status: Pending to [facility] #[id number] Referrals: Olive Lal APRN [Primary Care Provider] - Medical Decision Making - Neftali Inquiry Pt receiving controlled substance: No <Olive Lal - Last Filed: 01/10/22 19:16> - Medical Records Medical records reviewed: Yes: I reviewed the patient's medical records. - Lab Data Lab results reviewed: Yes: I reviewed the patient's lab results. Result diagrams: 01/10/22 19:40 01/10/22 19:40 - CT Data CT Scan: Head, C-Spine Time Received: 22:[address] Reviewed: Yes: I have viewed the radiologist's interpretation Preliminary Findings: Abnormal (see report ) <Bautista Eli - Last Filed: 01/10/22 22:37> Vital Signs: 01/10/22 18:40 01/10/22 19:23 01/10/22 22:24 Temperature 98.2 F 97.9 F 98.0 F Temperature Source Oral Oral Oral Pulse Rate 71 Pulse Rate [Left Brachial] 76 73 Respiratory Rate 18 20 18 Blood Pressure 125/82 Blood Pressure [Left Arm] 176/78 H 135/91 H Blood Pressure Mean [Left Arm] 110 105 Blood Pressure Source [Left Arm] Automatic Cuff Automatic Cuff Blood Pressure Position [Left Arm] Sitting 02 Sat by Pulse Oximetry 95 95 Oxygen Delivery Method Room Air Room Air Room Air - Lab Data Lab Results 01/10/22 19:40: WBC 13.5 H, RBC 5.02, Hgb 14.1, Hct 43.9, MCV 87.5, MCH 28.2, MCHC 32.2, RDW 13.3, Plt Count 314, MPV 9.1, Neut % (Auto) 75.8, Lymph % (Auto) 17.6, [place] % (Auto) 4.2, Eos % (Auto) 1.2, Baso % (Auto) 1.2, Neut # (Auto) 10.3 H, Lymph # (Auto) 2.4, [place] # (Auto) 0.6, Eos # (Auto) 0.2, Baso # (Auto) 0.2, ESR 18 01/10/22 19:40: Sodium 139, Potassium 4.0, Chloride 102, Carbon Dioxide 28, Anion Gap 13.0, BUN 15, Creatinine 0.90, Estimated Creat Clear 95, Estimated GFR 63, Est GFR ( Amer) 77, Glucose 155 H, Calcium 9.4, Total Bilirubin 0.3, AST 43 H, ALT 30, Alkaline Phosphatase 89, C-Reactive Protein 5.9 H, Total Protein 7.6, Albumin 4.5, Globulin 3.1, Albumin/Globulin Ratio 1.5, Procalcitonin 0.067 01/10/22 19:40: Troponin I < 0.01 Orders (Tests/Meds): ED MEDICATIONS Generic Name Dose Route Start Last Admin Trade Name Freq PRN Reason Stop Dose Admin Sodium Chloride 1,000 mls @ 999 mls/hr 01/10/22 20:30 01/10/22 20:23 Sod Chlor 0.9% 1000ml Bag IV 01/10/22 21:30 Not Given .Q1H1M ADALID Lactated Ringer's 1,000 mls @ 999 mls/hr 01/10/22 20:30 01/10/22 20:24 Lactated Ringer's 1000 Ml Bag IV 01/10/22 21:30 999 mls/hr .Q1H1M ADALID Administration Methylprednisolone Sodium Succinate 125 mg 01/10/22 22:15 01/10/22 22:07 Methylprednisolone Sod Succ 125mg Vial IV 02/09/22 22:14 125 mg Q12H ADALID Administration Discontinued Medications Generic Name Dose Route Start Last Admin Trade Name Freq PRN Reason Stop Dose Admin Ketorolac Tromethamine 30 mg 01/10/22 20:18 01/10/22 20:24 Ketorolac 30mg/Ml Vial IV 01/10/22 20:19 30 mg ONCE ONE Administration Morphine Sulfate 4 mg 01/10/22 22:08 01/10/22 22:14 Morphine 4mg/Ml Syringe IV 01/10/22 22:09 4 mg ONCE ONE Administration Ondansetron HCl 4 mg 01/10/22 22:08 01/10/22 22:15 Ondansetron 4mg/2ml Vial IV 01/10/22 22:09 4 mg ONCE ONE Administration ORDERS Category Date Time Status Troponin I Q3H Lab 01/11/22 01:00 Ordered Troponin I Q3H Lab 01/11/22 04:00 Ordered Medical De
[2022-01-10 19:23] VITALS: BP 135/91; PULSE 73; RESP 20; TEMP 36.6; O2SAT 95; BMI 40.7
--- NOTE | 2022-01-10 20:10 | CT_ITS ---
PROCEDURE INFORMATION: Exam: CT Cervical Spine Without Contrast Exam date and time: 01/10/2022 8:24 PM Age: 61 years old Clinical indication: Neck pain; Patient HX: No injury; Additional info: R neck pain RT sided headache no injury TECHNIQUE: Imaging protocol: Computed tomography images of the cervical spine without contrast. Radiation optimization: All CT scans at this facility use at least one of these dose optimization techniques: automated exposure control; mA and/or kV adjustment per patient size (includes targeted exams where dose is matched to clinical indication); or iterative reconstruction. COMPARISON: CT CERVICAL SPINE WO CON 11/27/2019 12:00 PM FINDINGS: Bones/joints: No acute fracture or malalignment. Straightening of physiologic cervical lordosis. Osteophytosis and hyperattenuating curvilinear foci in the soft tissues surrounding the odontoid process. Discs/Spinal canal/Neural foramina: Multi-level degenerative disc disease, most prominent C4-C6 where there is disc space narrowing and disc osteophyte complex formation. No significant spinal canal stenosis. Multilevel degenerative uncovertebral and facet hypertrophy resulting in moderate neuroforaminal narrowing on the right at C3-C4 and mild bilateral neuroforaminal narrowing at C4-C5 and C5-C6. Prevertebral Space: No prevertebral soft tissue edema. Lungs: No acute abnormality or suspicious mass lesion in the visualized lung apices. Soft tissues: Unremarkable. IMPRESSION: 1. No acute osseous abnormality in the cervical spine. 2. 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 3. Straightening of physiologic cervical lordosis, which may be related to patient positioning or muscle spasm. 4. Multi-level degenerative changes, as detailed above.
--- NOTE | 2022-01-10 20:10 | CT_ITS ---
PROCEDURE INFORMATION: Exam: CT Head Without Contrast Exam date and time: 01/10/2022 8:22 PM Age: 61 years old Clinical indication: Pain; Headache not specified; Additional info: R side head pain, no injury TECHNIQUE: Imaging protocol: Computed tomography of the head without contrast. Radiation optimization: All CT scans at this facility use at least one of these dose optimization techniques: automated exposure control; mA and/or kV adjustment per patient size (includes targeted exams where dose is matched to clinical indication); or iterative reconstruction. COMPARISON: CT HEAD/BRAIN WO CON 11/27/2019 12:00 PM FINDINGS: Brain: No acute intracranial hemorrhage. No intra- or extra-axial fluid collection. No mass effect or midline shift. Cerebral ventricles: No hydrocephalus. Paranasal sinuses: No air fluid levels in the visualized paranasal sinuses. Mastoid air cells: Bilateral trace mastoid effusions, nonspecific. Bones/joints: No acute calvarial or skull base fracture. Soft tissues: Within normal limits. IMPRESSION: 1. No evidence of acute intracranial abnormality. 2. Bilateral trace mastoid effusions, nonspecific.
[2022-01-10 20:21] LABS: Basophils # 0.2 K/mm3 (0-0.2); Basophils % 1.2 % (0.1-2.0); Eosinophils # 0.2 K/mm3 (0.0-0.4); Eosinophils % 1.2 % (0.1-12.0); Hematocrit 43.9 % (37.0-47.0); Hemoglobin 14.1 g/dL (12.2-16.2); Lymphocytes # 2.4 K/mm3 (0.7-4.5); Lymphocytes % 17.6 % (10-50); Mean Corpuscular HGB Conc 32.2 g/dL (31.8-35.4); Mean Corpuscular Hemoglobin 28.2 pg (27.0-31.2); Mean Corpuscular Volume 87.5 fl (81-99); Mean Platelet Volume 9.1 fl (7.4-10.4); Monocytes # 0.6 K/mm3 (0.1-1.0); Monocytes % 4.2 % (1.7-9.3); Neutrophils # 10.3 K/mm3 (1.8-7.8); Neutrophils % 75.8 % (37.0-80.0); Platelet Count 314 K/mm3 (142-424); Red Blood Count 5.02 M/mm3 (4.20-5.40); Red Cell Distribution Width 13.3 % (11.5-17.5); White Blood Count 13.5 K/mm3 (4.8-10.8)
[2022-01-10 20:22] LABS: Alanine Aminotransferase 30 U/L (12-78); Albumin Level 4.5 g/dl (3.5-5.0); Albumin/Globulin Ratio 1.5 (1.1-1.8); Alkaline Phosphatase 89 U/L (38-126); Aspartate Amino Transferase 43 U/L (14-36); Bilirubin,Total 0.3 mg/dl (0.2-1.3); Blood Urea Nitrogen 15 mg/dl (7-17); Calcium 9.4 mg/dl (8.4-10.2); Carbon Dioxide 28 mmol/L (22.0-30.0); Chloride 102 mmol/L (98-107); Creatinine Clearance Estimated 95 mL/min (50-200); Estimated Glomerular Filt Rate 63 ml/min (>60); GFR (African American) 77 ML/MIN (>60); Globulin 3.1 g/dL (1.3-3.2); Glucose 155 mg/dl (74-100); Sodium 139 mmol/L (136-145); Total Protein,Serum 7.6 g/dl (6.3-8.2)
[2022-01-10 20:26] LABS: C-Reactive Protein 5.9 mg/L (0-4)
[2022-01-10 20:40] LABS: Procalcitonin 0.067 ng/mL (0.0-2.0)
[2022-01-10 21:01] LABS: Erythrocyte Sedimentation Rate 18 mm/hr (0-30)
[2022-01-10 22:22] LABS: Troponin I < 0.01 ng/ml (0.00-0.034)
[2022-01-10 22:24] VITALS: BP 125/82; PULSE 71; RESP 18; TEMP 36.7; O2SAT 95
== END 2022-01-10 22:45 | disposition home or self-care (01) ==
LOC: UTC 18:13 → ER 19:16
PROVIDERS: Emergency Provider Emergency Medicine; PCP Nurse Practitioner Family
DX: R07.9 Chest pain, unspecified (principal); R00.2 Palpitations; R94.31 Abnormal electrocardiogram [ECG] [EKG]; M54.2 Cervicalgia; H92.09 Otalgia, unspecified ear; R51.9 Headache, unspecified; I10 Essential (primary) hypertension; I25.119 Atherosclerotic heart disease of native coronary artery with unspecified angina pectoris; K21.9 Gastro-esophageal reflux disease without esophagitis; E78.5 Hyperlipidemia, unspecified; E11.9 Type 2 diabetes mellitus without complications; L98.499 Non-pressure chronic ulcer of skin of other sites with unspecified severity; Z79.02 Long term (current) use of antithrombotics/antiplatelets; Z79.52 Long term (current) use of systemic steroids; Z79.82 Long term (current) use of aspirin; Z79.899 Other long term (current) drug therapy; Z88.8 Allergy status to other drugs, medicaments and biological substances; Z91.018 Allergy to other foods
CPT/HCPCS: 70450; 72125; 80053; 84145; 84484; 85025; 85651; 86140; 96361; 96365; 96374; 96375; 99285; J2405

== ENCOUNTER 2022-01-20 11:19 | Observation (INO) | payer MEDICARE, OTHER, SELFPAY ==
[2022-01-20] VITALS (12 sets, daily range): BP systolic 121–180; BP diastolic 67–95; PULSE 56–80; RESP 12–20; TEMP 36.3–37.1; O2SAT 94–100; BMI 38.9; BMI 37.3
--- NOTE | 2022-01-20 11:19 | ECG_ITS ---
APPROVED REPORT Exam: Resting ECG HR:70 bpm ECG Measurements Heart Rate 70 AXES MN 149 P 120 QRSd 86 QRS -1 QT 379 T 84 QTc 399 Conclusion SINUS RHYTHM MINIMAL ST DEPRESSION [0.025+ mV ST DEPRESSION] BORDERLINE ECG UNCONFIRMED REPORT Electronically signed by : Ahmet Edwards MD 01/21/2022 16:01:57
--- NOTE | 2022-01-20 11:23 | HMH.EDGENADL ---
ED Disposition Clinical Impression: Unstable angina Disposition: Admitted as Observation Condition on Discharge: Good - Critical Care Critical Care Time: No Attestation: On , the high probability of a clinically significant, sudden or life threatening deterioration of the following system(s) required my full and direct attention, intervention and personal management. The time I documented below is in addition to time spent performing reported procedures but includes the following listed in this critical care notation. Medical Decision Making - Medical Records Medical records reviewed: Yes: I reviewed the patient's medical records. MR Comment: Reviewed previous echocardiogram, stress test, heart cath, see below. - Neftali Inquiry Pt receiving controlled substance: No Vital Signs: 01/20/22 11:23 01/20/22 11:30 01/20/22 12:00 Temperature 98.3 F Temperature Source Oral Pulse Rate 66 61 Pulse Rate [Right] 75 Respiratory Rate 16 20 16 Blood Pressure 130/84 142/70 H Blood Pressure [Right Arm] 174/90 H Blood Pressure Mean 99 103 Blood Pressure Mean [Right Arm] 118 Blood Pressure Source Blood Pressure Source [Right Arm] Automatic Cuff Blood Pressure Position Blood Pressure Position [Right Arm] Sitting 02 Sat by Pulse Oximetry 100 96 96 Oxygen Delivery Method Room Air 01/20/22 12:30 01/20/22 12:45 01/20/22 13:30 Temperature Temperature Source Pulse Rate 63 63 56 L Pulse Rate [Right] Respiratory Rate 18 12 13 Blood Pressure 140/73 121/73 127/67 Blood Pressure [Right Arm] Blood Pressure Mean 95 Blood Pressure Mean [Right Arm] Blood Pressure Source Blood Pressure Source [Right Arm] Blood Pressure Position Blood Pressure Position [Right Arm] 02 Sat by Pulse Oximetry 96 96 95 Oxygen Delivery Method 01/20/22 14:01 01/20/22 14:29 Temperature 98.3 F Temperature Source Oral Pulse Rate 64 64 Pulse Rate [Right] Respiratory Rate 16 Blood Pressure 146/83 H 142/80 H Blood Pressure [Right Arm] Blood Pressure Mean 92 Blood Pressure Mean [Right Arm] Blood Pressure Source Automatic Cuff Blood Pressure Source [Right Arm] Blood Pressure Position Sitting Blood Pressure Position [Right Arm] 02 Sat by Pulse Oximetry 95 Oxygen Delivery Method Room Air - Lab Data Lab Results 01/20/22 11:26: WBC 12.0 H, RBC 5.35, Hgb 15.4, Hct 45.4, MCV 84.9, MCH 28.8, MCHC 34.0, RDW 13.9, Plt Count 396, MPV 9.0, Neut % (Auto) 65.2, Lymph % (Auto) 25.2, [place] % (Auto) 5.4, Eos % (Auto) 2.6, Baso % (Auto) 1.6, Neut # (Auto) 7.8, Lymph # (Auto) 3.0, [place] # (Auto) 0.7, Eos # (Auto) 0.3, Baso # (Auto) 0.2 01/20/22 11:26: Sodium 136, Potassium 3.7, Chloride 101, Carbon Dioxide 29, Anion Gap 9.7, BUN 20 H, Creatinine 1.00, Estimated Creat Clear 91, Estimated GFR 56 L, Est GFR ( Amer) 68, Glucose 112 H, Calcium 8.5, Troponin I < 0.01 01/20/22 13:37: SARS-CoV-2 (PCR) Not detected, Influenza A Untype (PCR) Not detected, Influenza Type B (PCR) Not detected Result diagrams: 01/20/22 11:26 01/20/22 11:26 Orders (Tests/Meds): ED MEDICATIONS Generic Name Dose Route Start Last Admin Trade Name Freq PRN Reason Stop Dose Admin Acetaminophen 650 mg 01/20/22 14:21 Acetaminophen 325mg Tab PO 02/19/22 14:20 Q4HP PRN Fever or Mild Pain Amlodipine Besylate 2.5 mg 01/20/22 14:21 01/20/22 15:12 Amlodipine 2.5mg Tablet PO 02/19/22 14:20 2.5 mg DAILY ADALID Administration Aspirin 81 mg 01/21/22 09:00 Aspirin Ec 81mg Tablet PO 02/20/22 08:59 DAILY ADALID Bisoprolol Fumarate 5 mg 01/21/22 09:00 Bisoprolol 5mg Tablet PO 02/20/22 08:59 DAILY ADALID Clopidogrel Bisulfate 75 mg 01/21/22 09:00 Clopidogrel 75mg Tab PO 02/20/22 08:59 DAILY ADALID Diphenhydramine HCl 50 mg 01/21/22 10:30 Diphenhydramine 50mg/Ml Vial IV 01/21/22 10:31 ONCE ONE Ondansetron HCl 4 mg 01/20/22 14:21 Ondansetron 4mg/2ml Vial IV
--- NOTE | 2022-01-20 11:28 | XR_ITS ---
FINAL REPORT CLINICAL HISTORY: chest pain, left sided, hx of stent COMPARISON: October 14, 2021 FINDINGS: Two views of the chest were obtained. The heart size and pulmonary vascularity are within normal limits. The mediastinum is normal. No acute pulmonary abnormality is identified. There is no pneumothorax. The bony thorax is intact. IMPRESSION: No active cardiopulmonary disease. Reviewed, Interpreted and Dictated by Polo Flowers III, MD Transcribed by Alina Lawson Authenticated by Polo Flowers III, MD on 01/20/2022 01:20:49 PM [facility]
[2022-01-20 11:40] LABS: Basophils # 0.2 K/mm3 (0-0.2); Basophils % 1.6 % (0.1-2.0); Eosinophils # 0.3 K/mm3 (0.0-0.4); Eosinophils % 2.6 % (0.1-12.0); Hematocrit 45.4 % (37.0-47.0); Hemoglobin 15.4 g/dL (12.2-16.2); Lymphocytes % 25.2 % (10-50); Mean Corpuscular Hemoglobin 28.8 pg (27.0-31.2); Mean Corpuscular Volume 84.9 fl (81-99); Monocytes # 0.7 K/mm3 (0.1-1.0); Monocytes % 5.4 % (1.7-9.3); Neutrophils # 7.8 K/mm3 (1.8-7.8); Neutrophils % 65.2 % (37.0-80.0); Platelet Count 396 K/mm3 (142-424); Red Blood Count 5.35 M/mm3 (4.20-5.40); Red Cell Distribution Width 13.9 % (11.5-17.5)
[2022-01-20 11:41] LABS: Chloride 101 mmol/L (98-107); Sodium 136 mmol/L (136-145)
[2022-01-20 11:42] LABS: Potassium 3.7 mmoL/L (3.5-5.1)
[2022-01-20 11:45] LABS: Anion Gap 9.7 mEq/L (5-15); Blood Urea Nitrogen 20 mg/dl (7-17); Calcium 8.5 mg/dl (8.4-10.2); Carbon Dioxide 29 mmol/L (22.0-30.0); Creatinine Clearance Estimated 91 mL/min (50-200); Estimated Glomerular Filt Rate 56 ml/min (>60); GFR (African American) 68 ML/MIN (>60); Glucose 112 mg/dl (74-100)
--- NOTE | 2022-01-20 11:52 | PC.NURSE ---
radiology at bedside
[2022-01-20 12:06] LABS: Troponin I < 0.01 ng/ml (0.00-0.034)
--- NOTE | 2022-01-20 12:52 | PC.NURSE ---
Went in to let pt know 1st troponin looked ok. Updated her on POC. No new needs at this time
--- NOTE | 2022-01-20 13:03 | PC.NURSE ---
Attempting to call cardiology, their office is still out to lunch. Will try again shortly.
--- NOTE | 2022-01-20 13:14 | PC.NURSE ---
spoke with prudence in cardiology and she stated she would send one of the providers over.
--- NOTE | 2022-01-20 13:30 | PC.NURSE ---
Nae Lee at bedside
--- NOTE | 2022-01-20 13:43 | PC.NURSE ---
Nae Lee wanted pt admitted to be and cathed in the morning. I have a call out for Dr Eli.
[2022-01-20 13:44] LABS: Coronavirus 19, PCR Not Detected (NotDetected); Influenza A, PCR Not Detected (NotDetected); Influenza B, PCR Not Detected (NotDetected)
--- NOTE | 2022-01-20 13:48 | PC.NURSE ---
SAVANNAH JANE speaking with dr. lucas at this time
--- NOTE | 2022-01-20 13:54 | PC.NURSE ---
notified care management of admission, spoke with cecilia
--- NOTE | 2022-01-20 14:04 | HMH.CNCARD ---
History of Present Illness Consult date: 01/20/22 Requesting physician: Deacon Kelly Consult reason: chest pain Chief complaint: chest pain History of present illness: This is a 61-year-old white female who presented to the emergency department with complaints of chest pain. She states that she has been having chest pain intermittently all week when she is exerting herself. She states that with even minimal exertion she is having pressure in the substernal aspect of her chest at least 3-4 times a day. She states initially this was only lasting for a few seconds and was not associated with any other symptoms or radiation. Today while taking out the garbage she had sudden onset of substernal chest pressure that radiated to her jaw and was associated with shortness of breath, nausea, diaphoresis and dizziness. She states that she has not felt well since that episode. It lasted approximately 3 to 5 minutes which was much longer than the episode she had previously been having. She denies any lower extremity edema. She denies any fever, chills, nausea, vomiting, diarrhea, PND or orthopnea. She has known coronary artery disease with stenting in 2019 to her proximal LAD. [facility] History I have reviewed the patient's past medical history: Yes Medical History: Reports:: Coronary Artery Disease, Gastroesophageal Reflux Disease(GERD), Hyperlipidemia, Hypertension, Ulcer Denies:: Cancer, Diabetes Mellitus Type 1, Diabetes Mellitus Type 2, Internal Pacemaker, Lung Disease, MRSA, Seizures *Have you ever received a pneumonia vaccine?: No *Have you received a flu vaccine this season?: Yes Other Medical History: Denies: Blood Transfusion Reaction Laterality Cases: Left: Breast Biopsy Other Surgeries: Yes: Cardiac Catheterization, Cholecystectomy, Colonoscopy, Coronary Stent, Tubal Ligation, Other. No: Pacemaker Amputation: No Fractures: Yes (RIBS) - *Social History Smoking Status: Never smoker Alcohol Intake: never Substance Use Type: denies use *Occupational Status:: other Housing: house Household Members: family *Travel in the last 8 weeks: None Family Hx:: Cancer, Diabetes Meds Home Medications Medication Instructions Recorded Confirmed Type aspirin 81 mg tablet,delayed 81 mg PO DAILY tab 12/07/17 01/13/22 History release coenzyme Q10 100 mg capsule 100 mg PO DAILY cap 12/07/17 01/13/22 History bisoprolol fumarate 5 mg tablet 5 mg PO DAILY #90 tab 03/24/21 01/13/22 Rx triamterene 37.5 1 tab PO DAILY #90 tab 03/24/21 01/13/22 Rx mg-hydrochlorothiazide 25 mg tablet clopidogrel 75 mg tablet 75 mg PO DAILY #30 tab 10/22/21 01/13/22 Rx Evolocumab [Repatha SureClick] See Rx Instructions .ROUTE .COMPLEX 01/10/22 01/13/22 History Pantoprazole Sodium See Rx Instructions .ROUTE .COMPLEX 01/10/22 01/13/22 History Venlafaxine HCl [Effexor Xr] See Rx Instructions .ROUTE .COMPLEX 01/10/22 01/13/22 History predniSONE [Prednisone 20mg 20 mg PO BID 01/20/22 01/20/22 History Tab] Allergies Allergy/AdvReac Type Severity Reaction Status Date / Time dexamethasone [From Decadron] Allergy Intermediate Hives/CHEST Verified 01/13/22 16:12 PAIN rosuvastatin [From CRESTOR] Allergy Intermediate Hives Verified 01/13/22 16:12 atorvastatin [ATORVASTATIN] Allergy Mild Hives Verified 01/13/22 16:12 colesevelam [From WELCHOL] Allergy Mild Hives Verified 01/13/22 16:12 niacin Allergy Mild Hives Verified 01/13/22 16:12 [From Niaspan Extended-Release] Exam Vital signs and Labs for Last 24 Hours: Temp Pulse Resp BP Pulse Ox 98.3 F 63 18 140/73 96 01/20/22 11:23 01/20/22 12:30 01/20/22 12:30 01/20/22 12:30 01/20/22 12:30 Laboratory Results - last 24 hr 01/20/22 11:26: WBC 12.0 H, RBC 5.35, Hgb 15.4, Hct 45.4, MCV 84.9, MCH 28.8, MCHC 34.0, RDW 13.9, Plt Count 396, MPV 9.0, Neut % (Auto) 65.2, Lymph % (Auto) 25.2, [place] % (Auto) 5.4, Eos % (Auto) 2.6, Baso % (Auto) 1.6, Neut # (Auto) 7.8, Lymph # (Auto) 3.0, [place] # (Au
--- NOTE | 2022-01-20 14:26 | CA_ITS ---
APPROVED REPORT EXAM: Comprehensive 2D, Doppler, and color-flow Echocardiogram Supervisor Soldering: Ofelia Paz RVT Ht: 5 ft 3 in Wt: 220lbs BSA: 2.01 BP: 140/73 mmHg Indications: CP,CAD,GERD,HTN,HLD 2D Dimensions LVOT 2.08 cm (M/F) 1.5-2.5 LA Volume 24.90 mL LA Volume Index 12.38 mL/m2 (M/F) 16-34 M-Mode Dimensions RVDd 2.57 cm (0.9-2.6) LA Diam 3.68 cm (1.9-4.0) LVDd 4.97 cm (3.5-5.7) Ao Diam 2.92 cm (2.0-3.7) LVDs 2.75 cm (3.5-5.7) IVSd 0.64 cm (0.6-1.1) PWd 0.64 cm (0.6-1.1) EF (Teich) 75.70% FS 44.70% EDV (Teich) 116.60 mL TAPSE 2.51 (<1.7) ESV (Teich) 28.30 mL LV Diastology E Decel Time 150.00 (160-240 msec) E/A Ratio 0.8 MED E' 5.80 (< 7 cm/sec) E'/MED E' Ratio 11.53 (>14) LAT E' 10.10 (<10 cm/sec) E/LAT E' Ratio 6.62 (>14) Aortic Valve AO Peak GR. 7.90 mmHg Mitral Valve MV E Max Olivier. 67.00 (40-130 cm/s) MV A Velocity 79.00 (40-130 cm/s) E/A Ratio 0.84 MV Decel. Time 150.00 (160-240 ms) MV PHT 44.00 ms Pulmonary Valve PV Peak Velocity 88.00 (50-150 cm/s) Tricuspid Valve TR P. Velocity 315.00 cm/s RAP Estimate 10.00 mmHg RVSP 49.80 mmHg Left Ventricle Remains mildly enlarged, left ventricle is normal size, mild concentric left ventricular hypertrophy, visually estimated ejection fraction 55% with no regional wall motion abnormality, grade 1 diastolic dysfunction seen without tissue Doppler evidence of raise left atrial pressure. Right Ventricle Right atrium and right ventricle mildly enlarged with normal contractility. Aortic Valve Aortic valve is minimally thickened and fibrosed, there is no aortic stenosis or aortic insufficiency. Mitral Valve Mitral valve is grossly normal, there is trace mitral regurgitation. Tricuspid Valve Tricuspid grossly normal, there is trace tricuspid regurgitation, calculated right ventricular systolic pressure is 48 mmHg. Pulmonic Valve Pulmonic valve is poorly visualized. Great Vessels Aortic root is normal size. Inferior vena cava is poorly visualized. Pericardium No significant pericardial effusion noted. Conclusion 1. Mild biatrial enlargement, normal left ventricular size, mild concentric left ventricular hypertrophy, visually estimated ejection fraction 55% with no regional wall motion abnormality, grade 1 diastolic dysfunction seen without tissue Doppler evidence of raise left atrial pressure. 2. Trace mitral and tricuspid regurgitation, calculated right ventricular systolic pressure is 48 mmHg. 3. No significant pericardial effusion. 4. Inferior vena cava is poorly visualized. Electronically signed by : Carl Del Rosario MD 01/20/2022 19:28:55
--- NOTE | 2022-01-20 14:40 | P.CONPHA_ITS ---
[facility] Pharmacy VTE Monitoring - Patient Demographics Admission date: 01/20/22 Report Date: 01/20/22 Time: 14:40 Allergies/Adverse Reactions: Patient Allergies dexamethasone [From Decadron] Allergy (Intermediate, Verified 01/13/22 16:12) Hives/CHEST PAIN rosuvastatin [From CRESTOR] Allergy (Intermediate, Verified 01/13/22 16:12) Hives atorvastatin [ATORVASTATIN] Allergy (Mild, Verified 01/13/22 16:12) Hives colesevelam [From WELCHOL] Allergy (Mild, Verified 01/13/22 16:12) Hives niacin [From Niaspan Extended-Release] Allergy (Mild, Verified 01/13/22 16:12) Hives Height: 1.6 m Weight: 95.765 kg Patient Problems: Current Active Problems (Last Updated 10/30/19 @ 09:07 by Cristina Christianson RN) Unstable angina (Acute) Typical angina (Acute) Shortness of breath (Acute) S/P coronary artery stent placement (Chronic) CAD (coronary artery disease) (Chronic) HLD (hyperlipidemia) (Chronic) HTN (hypertension) (Chronic) - VTE Risk Labs: VTE Related Lab Results Hgb 15.4 g/dL (12.2-16.2) 01/20/22 11:26 Hct 45.4 % (37.0-47.0) 01/20/22 11:26 Plt Count 396 K/mm3 (142-424) 01/20/22 11:26 BUN 20 mg/dl (7-17) H 01/20/22 11:26 Creatinine 1.00 mg/dl (0.52-1.04) 01/20/22 11:26 Estimated Creat Clear 91 mL/min (50-200) 01/20/22 11:26 - Prophylaxis VTE Prophylaxis Ordered?: Yes Types of VTE Prophylaxis: TEDS Knee High Location of Applied Device: Bilateral Lower Extremeties
[2022-01-20 15:34] LABS: Troponin I < 0.01 ng/ml (0.00-0.034)
--- NOTE | 2022-01-20 17:44 | PC.NURSE ---
Pt arrived to the floor at 1400 via wheelchair accompanied by ER staff. She is alert and oriented x4. Lungs clear, bowel sounds active x4. Tolerating RA. She ambulates independently. Skin is warm, dry and intact. She's been NSR/ST on telemetry. Denied any complaints since arriving to the floor.
[2022-01-20 17:57] LABS: Troponin I < 0.01 ng/ml (0.00-0.034)
[2022-01-21] VITALS (15 sets, daily range): BP systolic 113–155; BP diastolic 66–82; PULSE 56–85; RESP 16–18; TEMP 36.6–37; O2SAT 91–97; BMI 37.8; BMI 37.5
--- NOTE | 2022-01-21 | IR_ITS ---
APPROVED REPORT Patient Location: Inpatient Optometry Teacher: ELAINE Dsouza RT (R) PROCEDURES Left heart catheterization Left ventriculogram Selective coronary angiogram Drug-eluting stent deployment to the mid to distal dominant circumflex artery INDICATION Coronary artery disease, Unstable angina Informed consent was obtained prior to the procedure. COMPLICATIONS NONE Estimated Blood Loss: LESS THAN 10 ML TECHNIQUE One percent lidocaine used to anesthetize the right anterior aspect of the wrist. The right radial artery was accessed via the Seldinger technique. A 6 [place] sheath was placed in the right radial artery. 2.5 mg of verapamil, 800 mcg of nitroglycerin, 1mg Lidocaine and 5000 U Heparin were given through the arterial sheath. The papa catheter was also used to perform left heart catheterization, left ventriculogram and selective coronary angiogram. At the end the diagnostic angiogram therapeutic heparin was administered giving a therapeutic ACT and a Choice PT extra-support wire was placed in the distal circumflex artery followed by a 2.75 x 38 mm resolute Neri stent deployed at 18 jostin reducing the severe stenosis to 0%. JOSE R-3 flow was present before and after the procedure. At the end the procedure the apparatus was removed the sheath was removed good hemostasis was achieved using TR banding patient was transferred to the postop holding area stable condition ANGIOGRAPHIC RESULTS The left main artery Normal The left anterior descending artery Has a stent in the ostial proximal segment which is widely patent free of in-stent restenosis with excellent proximal distal transitioning. The remaining LAD has mild 10 to 20% stenoses The circumflex artery Is a codominant vessel and has a mid vessel to distal 6080 and 70% stenosis The right coronary artery Is a codominant vessel and has mild 10% proximal stenoses with mid vessel 20 to 30% stenoses The PEARSON ventriculogram reveals Not performed The left ventricular end-diastolic pressure Not measured IMPRESSION Severe stenosis in the codominant circumflex artery with successful stenting reducing severe stenosis to 0% PLAN 1. Dual antiplatelet therapy 2. Risk factor modification 3. Cardiac rehabilitation 4. Avoidance of tobacco products Electronically signed by : Saeid Walker MD 01/21/2022 13:34:51
[2022-01-21 06:25] LABS: Basophils % 0.3 % (0.1-2.0); Eosinophils % 0.1 % (0.1-12.0); Hematocrit 44.3 % (37.0-47.0); Hemoglobin 14.8 g/dL (12.2-16.2); Lymphocytes # 1.5 K/mm3 (0.7-4.5); Lymphocytes % 14.8 % (10-50); Mean Corpuscular HGB Conc 33.3 g/dL (31.8-35.4); Mean Corpuscular Hemoglobin 28.7 pg (27.0-31.2); Mean Corpuscular Volume 86.1 fl (81-99); Mean Platelet Volume 9.2 fl (7.4-10.4); Monocytes # 0.2 K/mm3 (0.1-1.0); Monocytes % 1.8 % (1.7-9.3); Neutrophils # 8.6 K/mm3 (1.8-7.8); Neutrophils % 82.9 % (37.0-80.0); Platelet Count 346 K/mm3 (142-424); Red Blood Count 5.14 M/mm3 (4.20-5.40); Red Cell Distribution Width 13.2 % (11.5-17.5); White Blood Count 10.4 K/mm3 (4.8-10.8)
[2022-01-21 06:29] LABS: Alanine Aminotransferase 42 U/L (12-78); Alkaline Phosphatase 86 U/L (38-126); Anion Gap 9.8 mEq/L (5-15); Aspartate Amino Transferase 41 U/L (14-36); Bilirubin,Direct 0.1 mg/dl (0.0-0.4); Bilirubin,Indirect 0.5 mg/dL (0.0-0.9); Bilirubin,Total 0.6 mg/dl (0.2-1.3); Bilirubin,Unconjugated 0.5 mg/dL (0.0-1.1); Blood Urea Nitrogen 19 mg/dl (7-17); Calcium 8.9 mg/dl (8.4-10.2); Carbon Dioxide 27 mmol/L (22.0-30.0); Chloride 102 mmol/L (98-107); Chol/HDL Ratio 3.3 (1-3.5); Cholesterol 164 mg/dl (140-200); Creatinine Clearance Estimated 88 mL/min (50-200); Estimated Glomerular Filt Rate 72 ml/min (>60); GFR (African American) 88 ML/MIN (>60); Glucose 174 mg/dl (74-100); HDL Cholesterol 49 mg/dl (40-60); Potassium 3.8 mmoL/L (3.5-5.1); Sodium 135 mmol/L (136-145); Total Protein,Serum 6.8 g/dl (6.3-8.2); Triglycerides 96 mg/dl (30-150); VLDL Cholesterol 19 mg/dL (0-40)
[2022-01-21 06:40] LABS: Direct LDL Cholesterol 89.46 mg/dL (100-129)
--- NOTE | 2022-01-21 09:46 | HMH.PHAINT ---
MEDICATION RECONCILIATION COMPLETED ON PATIENT USING EXTERNAL FILL HISTORY FROM PHARMACY. -TIM FLORES, HOLLID
--- NOTE | 2022-01-21 09:46 | HMH.PNCARD ---
Subjective Date: 01/21/22 Time: 09:55 Principal diagnosis: angina, CAD Interval history: This is a 61-year-old white female who was admitted to the hospital with complaints of angina/unstable angina. She has been having chest pain for a week and it significantly worsened yesterday. Anytime she gets up and exerts herself even minimally. She is having chest pain. She describes this as a substernal chest pressure that radiates to her jaw and is associated with shortness of breath, nausea, diaphoresis, and dizziness. She states that while she is lying in the bed here at the hospital she cannot have any pain but when she gets up to move the symptoms recur. They are lasting approximately 3 to 5 minutes. She states that this is moderate to severe in intensity. She denies any lower extremity edema. She denies any fever, chills, nausea, vomiting, diarrhea, PND or orthopnea. She does report that she has been having issues with her neck and having headaches dizziness. She came to the urgent treatment center/ED previously for this. She is concerned with having stenosis in her carotid arteries and would like to have this evaluated. Exam Vital signs and Labs for Last 24 Hours: Temp Pulse Resp BP Pulse Ox 97.9 F 70 16 155/78 H 97 01/21/22 08:00 01/21/22 08:00 01/21/22 08:00 01/21/22 08:00 01/21/22 08:00 Laboratory Results - last 24 hr 01/20/22 11:26: WBC 12.0 H, RBC 5.35, Hgb 15.4, Hct 45.4, MCV 84.9, MCH 28.8, MCHC 34.0, RDW 13.9, Plt Count 396, MPV 9.0, Neut % (Auto) 65.2, Lymph % (Auto) 25.2, [place] % (Auto) 5.4, Eos % (Auto) 2.6, Baso % (Auto) 1.6, Neut # (Auto) 7.8, Lymph # (Auto) 3.0, [place] # (Auto) 0.7, Eos # (Auto) 0.3, Baso # (Auto) 0.2 01/20/22 11:26: Sodium 136, Potassium 3.7, Chloride 101, Carbon Dioxide 29, Anion Gap 9.7, BUN 20 H, Creatinine 1.00, Estimated Creat Clear 91, Estimated GFR 56 L, Est GFR ( Amer) 68, Glucose 112 H, Calcium 8.5, Troponin I < 0.01 01/20/22 13:37: SARS-CoV-2 (PCR) Not detected, Influenza A Untype (PCR) Not detected, Influenza Type B (PCR) Not detected 01/20/22 14:45: Troponin I < 0.01 01/20/22 17:25: Troponin I < 0.01 01/21/22 05:25: WBC 10.4, RBC 5.14, Hgb 14.8, Hct 44.3, MCV 86.1, MCH 28.7, MCHC 33.3, RDW 13.2, Plt Count 346, MPV 9.2, Neut % (Auto) 82.9 H, Lymph % (Auto) 14.8, [place] % (Auto) 1.8, Eos % (Auto) 0.1, Baso % (Auto) 0.3, Neut # (Auto) 8.6 H, Lymph # (Auto) 1.5, [place] # (Auto) 0.2, Eos # (Auto) 0.0, Baso # (Auto) 0.0 01/21/22 05:25: Sodium 135 L, Potassium 3.8, Chloride 102, Carbon Dioxide 27, Anion Gap 9.8, BUN 19 H, Creatinine 0.80, Estimated Creat Clear 88, Estimated GFR 72, Est GFR ( Amer) 88 D, Glucose 174 H D, Calcium 8.9, Total Bilirubin 0.6, Direct Bilirubin 0.1, Conjugated Bilirubin 0.0, Indirect Bilirubin 0.5, Unconjugated Bilirubin 0.5, AST 41 H, ALT 42, Alkaline Phosphatase 86, Total Protein 6.8, Albumin 4.0, Triglycerides 96, Cholesterol 164, LDL Cholesterol Direct 89.46 L, VLDL Cholesterol 19, HDL Cholesterol 49, Cholesterol/HDL Ratio 3.3 I & O for Last 24 hours: Intake & Output 01/18/22 01/19/22 01/20/22 01/21/22 23:59 23:59 23:59 23:59 Intake Total 480 / 480 Balance 480 / 480 Weight 211 lb 2 oz 213 lb 4 oz Narrative: Telemetry strip is sinus rhythm. Echo shows: 1. Mild biatrial enlargement, normal left ventricular size, mild concentric left ventricular hypertrophy, visually estimated ejection fraction 55% with no regional wall motion abnormality, grade 1 diastolic dysfunction seen without tissue Doppler evidence of raise left atrial pressure. 2. Trace mitral and tricuspid regurgitation, calculated right ventricular systolic pressure is 48 mmHg. 3. No significant pericardial effusion. 4. Inferior vena cava is poorly visualized. - Constitutional no acute distress, obese - *Routine HEENT Exam Head: Present: normocephalic, atraumatic Eye: Present: EOMI, PERRL ENT: Present: mucous membranes moist - *Routine Neck Exam Present:
--- NOTE | 2022-01-21 09:53 | CA_ITS ---
FINAL REPORT TECHNIQUE: Color Doppler, duplex Doppler and merino scale sonography of the bilateral neck arterial vasculature was performed. Velocities were measured in the carotid arteries. Stenosis evaluation based on the validated velocity criteria. CLINICAL HISTORY: dizziness, CAD, Hyperlipidemia, HTN FINDINGS: The peak systolic velocity of the right common carotid artery is 83 cm/s. The peak systolic velocity of the right internal carotid artery is 90 cm/s and end diastolic velocity 32 cm/s. The ICA/CCA ratio is 1.2. A mild amount of plaque is present. The right external carotid artery is patent. The right vertebral artery is patent with antegrade flow. The peak systolic velocity of the left common carotid artery is 80 cm/s. The peak systolic velocity of the left internal carotid artery is 99 cm/s and end diastolic velocity 41 cm/s. The ICA/CCA ratio is 1.4. A mild amount of plaque is present. The left external carotid artery is patent.The left vertebral artery is patent with antegrade flow. IMPRESSION: Less than 50% bilateral carotid stenosis. Bilateral patent vertebral arteries with antegrade flow. Reviewed, Interpreted and Dictated by Polo Flowers III, MD Transcribed by Jacki Allen Authenticated by Polo Flowers III, MD on 01/21/2022 01:48:14 PM [facility]
[2022-01-21 13:48] LABS: CATHL Activated Clotting Time > 400 SEC (74-125)
--- NOTE | 2022-01-21 21:36 | HMH.HP ---
*Admission Date: 01/20/22 *Chief complaint: Chest Pain *History of present illness: This is a 61-year-old white female who presented to the emergency department with complaints of chest pain. She states that she has been having chest pain intermittently all week when she is exerting herself. She states that with even minimal exertion she is having pressure in the substernal aspect of her chest at least 3-4 times a day. She states initially this was only lasting for a few seconds and was not associated with any other symptoms or radiation. Today while taking out the garbage she had sudden onset of substernal chest pressure that radiated to her jaw and was associated with shortness of breath, nausea, diaphoresis and dizziness. She states that she has not felt well since that episode. It lasted approximately 3 to 5 minutes which was much longer than the episode she had previously been having. She denies any lower extremity edema. She denies any fever, chills, nausea, vomiting, diarrhea, PND or orthopnea. She has known coronary artery disease with stenting in 2019 to her proximal LAD (Per Darian Lee STUDENT SUPPORT ADVISOR). [facility] History I have reviewed the patient's past medical history: Yes Medical History: Reports:: Coronary Artery Disease, Gastroesophageal Reflux Disease(GERD), Hyperlipidemia, Hypertension, Ulcer Denies:: Cancer, Diabetes Mellitus Type 1, Diabetes Mellitus Type 2, Internal Pacemaker, Lung Disease, MRSA, Seizures *Have you ever received a pneumonia vaccine?: Yes *Have you received a flu vaccine this season?: Yes Other Medical History: Reports: Arthritis. Denies: Blood Transfusion Reaction Laterality Cases: Left: Breast Biopsy Other Surgeries: Yes: Cardiac Catheterization, Cholecystectomy, Colonoscopy, Coronary Stent, Tubal Ligation, Other. No: Pacemaker Amputation: No Fractures: Yes (RIBS) - *Social History Smoking Status: Never smoker Alcohol Intake: never Substance Use Type: denies use *Occupational Status:: disabled Housing: house Household Members: family *Travel in the last 8 weeks: None Family Hx:: Cancer, Diabetes Review of Systems - Review of Systems Review of systems:: pertinent systems reviewed and negative unless documented below - Constitutional Reports body ache(s), Reports excessive sweating - Eyes Denies blurry vision, Denies double vision - ENT Reports dizziness, Denies bleeding gums - *Cardiovascular Reports chest pain, Reports chest pain with activity, Reports shortness of breath, Reports shortness of breath with activity, Reports radiating jaw, neck or arm pain - *Respiratory Denies shortness of breath, Denies shortness of breath with activity - *Gastrointestinal Denies abdominal pain, Denies change in bowel habits - *Musculoskeletal Denies joint pain, Denies muscle weakness - Integumentary/Breasts Denies bleeding lesions, Denies skin ulcer - *Neurologic Reports dizziness, Denies lack of coordination - Psychiatric Denies lack of enjoyment, Denies change in appetite - Endocrine Denies cold intolerance, Denies flushing - Hematologic/Lymphatic Denies easy bleeding, Denies easy bruising - Allergic/Immunologic Denies GI upset with certain foods, Denies tongue swelling Meds Home Medications Medication Instructions Recorded Confirmed Type aspirin 81 mg tablet,delayed 81 mg PO DAILY tab 12/07/17 01/20/22 History release coenzyme Q10 100 mg capsule 100 mg PO DAILY cap 12/07/17 01/20/22 History bisoprolol fumarate 5 mg tablet 5 mg PO DAILY #90 tab 03/24/21 01/20/22 Rx triamterene 37.5 1 tab PO DAILY #90 tab 03/24/21 01/20/22 Rx mg-hydrochlorothiazide 25 mg tablet clopidogrel 75 mg tablet 75 mg PO DAILY #30 tab 10/22/21 01/20/22 Rx Evolocumab [Repatha SureClick] 140 mg SQ DIRECTED 01/10/22 01/20/22 History Pantoprazole Sodium 40 mg PO DAILY 01/10/22 01/20/22 History Venlafaxine HCl [Effexor Xr] 37.5 mg PO DAILY 01/10/22 01/20/22 History Allergies Allergy/AdvReac Type Sever
[2022-01-22] VITALS: BP 125/71; PULSE 64; RESP 16; TEMP 36.7; O2SAT 94
[2022-01-22 04:00] VITALS: BP 108/53; PULSE 58; PULSE 65; RESP 16; TEMP 36.8; O2SAT 93
[2022-01-22 05:00] VITALS: BMI 37.7
[2022-01-22 06:00] LABS: Basophils # 0.1 K/mm3 (0-0.2); Basophils % 0.4 % (0.1-2.0); Eosinophils % 0.1 % (0.1-12.0); Hematocrit 43.8 % (37.0-47.0); Hemoglobin 14.5 g/dL (12.2-16.2); Lymphocytes # 2.2 K/mm3 (0.7-4.5); Lymphocytes % 18.5 % (10-50); Mean Corpuscular HGB Conc 33.1 g/dL (31.8-35.4); Mean Corpuscular Volume 87.7 fl (81-99); Mean Platelet Volume 9.5 fl (7.4-10.4); Monocytes # 0.3 K/mm3 (0.1-1.0); Monocytes % 2.8 % (1.7-9.3); Neutrophils # 9.3 K/mm3 (1.8-7.8); Neutrophils % 78.2 % (37.0-80.0); Platelet Count 330 K/mm3 (142-424); Red Cell Distribution Width 13.2 % (11.5-17.5); White Blood Count 11.9 K/mm3 (4.8-10.8)
[2022-01-22 06:03] LABS: Chloride 101 mmol/L (98-107); Sodium 135 mmol/L (136-145)
[2022-01-22 06:04] LABS: Potassium 3.6 mmoL/L (3.5-5.1)
[2022-01-22 06:06] LABS: Blood Urea Nitrogen 18 mg/dl (7-17); Creatinine Clearance Estimated 88 mL/min (50-200); Estimated Glomerular Filt Rate 72 ml/min (>60); GFR (African American) 88 ML/MIN (>60)
[2022-01-22 06:07] LABS: Anion Gap 11.6 mEq/L (5-15); Calcium 8.5 mg/dl (8.4-10.2); Carbon Dioxide 26 mmol/L (22.0-30.0); Glucose 146 mg/dl (74-100)
[2022-01-22 07:43] VITALS: BP 141/72; PULSE 74; RESP 17; TEMP 36.4; O2SAT 94
[2022-01-22 08:00] VITALS: PULSE 69
[2022-01-22 11:04] VITALS: BP 139/75; PULSE 62; RESP 16; TEMP 36.8; O2SAT 95
--- NOTE | 2022-01-22 11:39 | HMH.PNCARD ---
Subjective Date: 01/22/22 Time: 11:40 Principal diagnosis: angina, CAD Interval history: This is a 60-year-old white female who was admitted to the hospital with complaints of angina and found to have unstable angina. She underwent left cardiac catheterization yesterday and had stenting to her codominant circumflex artery for severe stenosis. The patient tolerated the procedure well and will remain on Plavix and aspirin for dual antiplatelet therapy. This morning she states that she feels great. She denies any chest pain or pressure. She denies any shortness of breath or edema. She denies any fever, chills, nausea, vomiting, diarrhea, PND or orthopnea. LHC shows: The left main artery Normal The left anterior descending artery Has a stent in the ostial proximal segment which is widely patent free of in-stent restenosis with excellent proximal distal transitioning. The remaining LAD has mild 10 to 20% stenoses The circumflex artery Is a codominant vessel and has a mid vessel to distal 6080 and 70% stenosis The right coronary artery Is a codominant vessel and has mild 10% proximal stenoses with mid vessel 20 to 30% stenoses The PEARSON ventriculogram reveals Not performed The left ventricular end-diastolic pressure Not measured IMPRESSION Severe stenosis in the codominant circumflex artery with successful stenting reducing severe stenosis to 0% PLAN 1. Dual antiplatelet therapy 2. Risk factor modification 3. Cardiac rehabilitation 4. Avoidance of tobacco products Exam Vital signs and Labs for Last 24 Hours: Temp Pulse Resp BP Pulse Ox 98.3 F 62 16 139/75 95 01/22/22 11:04 01/22/22 11:04 01/22/22 11:04 01/22/22 11:04 01/22/22 11:04 Laboratory Results - last 24 hr 01/21/22 13:20: Activated Clotting Time > 400 H* 01/22/22 05:25: WBC 11.9 H, RBC 5.00, Hgb 14.5, Hct 43.8, MCV 87.7, MCH 29.0, MCHC 33.1, RDW 13.2, Plt Count 330, MPV 9.5, Neut % (Auto) 78.2, Lymph % (Auto) 18.5, [place] % (Auto) 2.8, Eos % (Auto) 0.1, Baso % (Auto) 0.4, Neut # (Auto) 9.3 H, Lymph # (Auto) 2.2, [place] # (Auto) 0.3, Eos # (Auto) 0.0, Baso # (Auto) 0.1 01/22/22 05:25: Sodium 135 L, Potassium 3.6, Chloride 101, Carbon Dioxide 26, Anion Gap 11.6, BUN 18 H, Creatinine 0.80, Estimated Creat Clear 88, Estimated GFR 72, Est GFR ( Amer) 88, Glucose 146 H, Calcium 8.5 I & O for Last 24 hours: Intake & Output 01/19/22 01/20/22 01/21/22 01/22/22 23:59 23:59 23:59 23:59 Intake Total 480 / 480 480 / 480 300 / 300 Output Total 300 / 300 Balance 480 / 480 180 / 180 300 / 300 Weight 211 lb 2 oz 211 lb 10.3 oz 213 lb 1 oz Narrative: Telemetry strip is sinus rhythm. CNI shows: Less than 50% bilateral carotid stenosis. Bilateral patent vertebral arteries with antegrade flow. - Constitutional no acute distress, obese - *Routine HEENT Exam Head: Present: normocephalic, atraumatic Eye: Present: EOMI, PERRL ENT: Present: mucous membranes moist - *Routine Neck Exam Present: supple, full ROM, normal carotid upstroke. Absent: JVD, carotid bruit, lymphadenopathy - *Routine Respiratory Exam Present: CTA bilaterally - *Routine Cardiovascular Exam Present: RRR, Normal S1, Normal S2. Absent: murmur - *Routine Abdominal Exam Present: soft, normoactive bowel sounds. Absent: tenderness, distended - *Routine Extremities Exam Present: full ROM, pulses intact, normal capillary refill. Absent: cyanosis, clubbing, edema - *Routine Skin Exam Present: intact, warm. Absent: erythema, rash - *Routine Neurological Exam Present: alert, oriented X3, CN II-XII intact. Absent: sensory deficit, motor deficit Progress Note: A&P (1) Typical angina Status: Resolved (2) Shortness of breath Status: Resolved (3) CAD (coronary artery disease) Status: Chronic (4) HLD (hyperlipidemia) Status: Chronic (5) HTN (hypertension) Status: Chronic (6) S/P coronary artery stent placement Status: Chronic (7) N
--- NOTE | 2022-01-22 11:46 | HMH.DCSUM ---
General - General Admission date:: 01/20/22 Discharge date: 01/22/22 HPI HPI: This is a 61-year-old white female who presented to the emergency department with complaints of chest pain. She states that she has been having chest pain intermittently all week when she is exerting herself. She states that with even minimal exertion she is having pressure in the substernal aspect of her chest at least 3-4 times a day. She states initially this was only lasting for a few seconds and was not associated with any other symptoms or radiation. Today while taking out the garbage she had sudden onset of substernal chest pressure that radiated to her jaw and was associated with shortness of breath, nausea, diaphoresis and dizziness. She states that she has not felt well since that episode. It lasted approximately 3 to 5 minutes which was much longer than the episode she had previously been having. She denies any lower extremity edema. She denies any fever, chills, nausea, vomiting, diarrhea, PND or orthopnea. She has known coronary artery disease with stenting in 2019 to her proximal LAD (Per Darian Lee APRN). Hospital Course Hospital Course: Abnormal Lab Results 01/21/22 13:20: Activated Clotting Time > 400 H* 01/22/22 05:25: WBC 11.9 H, Neut # (Auto) 9.3 H 01/22/22 05:25: Sodium 135 L, BUN 18 H, Glucose 146 H Ordering Physician: Nae Lee APRN Date of Service: 01/21/22 Procedure(s): CA carotid duplex BI Accession Number(s): [id number] cc: Nae Lee APRN; Olive Lal APRN; Polo Flowers MD~ FINAL REPORT TECHNIQUE: Color Doppler, duplex Doppler and merino scale sonography of the bilateral neck arterial vasculature was performed. Velocities were measured in the carotid arteries. Stenosis evaluation based on the validated velocity criteria. CLINICAL HISTORY: dizziness, CAD, Hyperlipidemia, HTN FINDINGS: The peak systolic velocity of the right common carotid artery is 83 cm/s. The peak systolic velocity of the right internal carotid artery is 90 cm/s and end diastolic velocity 32 cm/s. The ICA/CCA ratio is 1.2. A mild amount of plaque is present. The right external carotid artery is patent. The right vertebral artery is patent with antegrade flow. The peak systolic velocity of the left common carotid artery is 80 cm/s. The peak systolic velocity of the left internal carotid artery is 99 cm/s and end diastolic velocity 41 cm/s. The ICA/CCA ratio is 1.4. A mild amount of plaque is present. The left external carotid artery is patent.The left vertebral artery is patent with antegrade flow. IMPRESSION: Less than 50% bilateral carotid stenosis. Bilateral patent vertebral arteries with antegrade flow. echo:Conclusion 1. Mild biatrial enlargement, normal left ventricular size, mild concentric left ventricular hypertrophy, visually estimated ejection fraction 55% with no regional wall motion abnormality, grade 1 diastolic dysfunction seen without tissue Doppler evidence of raise left atrial pressure. 2. Trace mitral and tricuspid regurgitation, calculated right ventricular systolic pressure is 48 mmHg. 3. No significant pericardial effusion. 4. Inferior vena cava is poorly visualized. Ordering Physician: Deacon Kelly MD Date of Service: 01/20/22 Procedure(s): XR chest 2V Accession Number(s): [id number] cc: Olive Lal APRN; Polo Flowers MD~ FINAL REPORT CLINICAL HISTORY: chest pain, left sided, hx of stent COMPARISON: October 14, 2021 FINDINGS: Two views of the chest were obtained. The heart size and pulmonary vascularity are within normal limits. The mediastinum is normal. No acute pulmonary abnormality is identified. There is no pneumothorax. The bony thorax is intact. IMPRESSION: No active cardiopulmonary disease. Ordering Physician: Saeid Walker MD Date of Service: 01/21/22 Procedure(s): CL lhc w ventricle Accession Number(s): [id number] cc: Angela Lal
--- NOTE | 2022-01-22 13:19 | HMH.PHACLD ---
Alfreda Lai has received discharge medication counseling on the following medications: -ASPIRIN -PLAVIX -BISOPROLOL -NO STATIN DUE TO ALLERGY ON FILE (ALSO ON REPATHA) -NO ALEXIS/ARB DUE TO NORMAL BP. -AMLODIPINE (WATCH FOR LOWER LEG SWELLING, DIZZINESS, LIGHTHEADEDNESS)
--- NOTE | 2022-01-26 15:37 | CARE MANAGER ---
CM called patient to discuss post discharge status. Patient states that she is doing well, has been walking every day. She states that she picked up her new medication amlodipine, and has been taking it as directed. She is aware of her appointments with Dr. Walkre and PCP on 01/29. She has no known needs at this time.
== END 2022-01-22 14:04 | disposition home or self-care (01) ==
LOC: ER 13:59 → 2ND 14:06
PROVIDERS: Internal Medicine; Nurse Practitioner Family; Admitting Provider Emergency Medicine; Emergency Provider Emergency Medicine; PCP Nurse Practitioner Family; Visit Provider Emergency Medicine
DX: I25.110 Atherosclerotic heart disease of native coronary artery with unstable angina pectoris (principal); I10 Essential (primary) hypertension; E78.5 Hyperlipidemia, unspecified; I65.23 Occlusion and stenosis of bilateral carotid arteries; K21.9 Gastro-esophageal reflux disease without esophagitis; Z79.899 Other long term (current) drug therapy; M54.2 Cervicalgia; R42 Dizziness and giddiness; R51.9 Headache, unspecified; Z20.822 Contact with and (suspected) exposure to COVID-19
CPT/HCPCS: G0378; 36415; 71046; 80048; 80061; 80076; 84484; 85025; 85347; 92928; 93005; 93306; 93458; 93880; 99152; 99285; C1725; C1760; C1769; C1876; C9600; C9803; J1644; Q9967; U0003; U0005

== ENCOUNTER → 2022-02-12 07:43 | Outpatient (CLI) | payer MEDICARE, OTHER, SELFPAY ==
[2022-02-12 10:36] LABS: Chloride 101 mmol/L (98-107); Sodium 138 mmol/L (136-145)
[2022-02-12 10:39] LABS: Blood Urea Nitrogen 11 mg/dl (7-17); Calcium 8.7 mg/dl (8.4-10.2); Carbon Dioxide 31 mmol/L (22.0-30.0); Estimated Glomerular Filt Rate 72 ml/min (>60); GFR (African American) 88 ML/MIN (>60); Glucose 118 mg/dl (74-100)
== END ==
PROVIDERS: Visit Provider Internal Medicine Cardiovascular Disease
DX: E78.2 Mixed hyperlipidemia (principal); I10 Essential (primary) hypertension; I25.118 Atherosclerotic heart disease of native coronary artery with other forms of angina pectoris; Z95.5 Presence of coronary angioplasty implant and graft
CPT/HCPCS: 36415; 80048

== ENCOUNTER → 2022-06-24 12:47 | Outpatient (CLI) | payer MEDICARE, OTHER, SELFPAY ==
--- NOTE | 2022-06-24 12:47 | US_ITS ---
FINAL REPORT CLINICAL HISTORY: post menopausal bleeding FINDINGS: Transvaginal sonographic images of the pelvis were obtained. The uterus measures 7.3 x 3.0 x 3 point 6 cm. The endometrium is thickened measuring 9 mm as a nonspecific finding. The ovaries are unremarkable. There is a 1.6 cm uterine fibroid. No free fluid is identified. IMPRESSION: Endometrial thickening, nonspecific finding. Uterine fibroid. Reviewed, Interpreted and Dictated by Polo Flowers III, MD Transcribed by Svetlana Jackson Authenticated and [facility]
== END ==
PROVIDERS: PCP Family Medicine; Visit Provider Nurse Practitioner Obstetrics & Gynecology
DX: N95.0 Postmenopausal bleeding (principal)
CPT/HCPCS: 76830

== ENCOUNTER → 2022-08-23 09:55 | Outpatient (CLI) | payer MEDICARE, OTHER, SELFPAY ==
[2022-08-23 10:50] LABS: Basophils # 0.1 K/mm3 (0-0.2); Eosinophils # 0.3 K/mm3 (0.0-0.4); Eosinophils % 3.2 % (0.1-12.0); Hematocrit 42.6 % (37.0-47.0); Hemoglobin 14.8 g/dL (12.2-16.2); Lymphocytes # 2.6 K/mm3 (0.7-4.5); Lymphocytes % 26.4 % (10-50); Mean Corpuscular HGB Conc 34.8 g/dL (31.8-35.4); Mean Corpuscular Hemoglobin 28.8 pg (27.0-31.2); Mean Corpuscular Volume 82.8 fl (81-99); Monocytes # 0.4 K/mm3 (0.1-1.0); Monocytes % 4.2 % (1.7-9.3); Neutrophils # 6.3 K/mm3 (1.8-7.8); Neutrophils % 65.2 % (37.0-80.0); Platelet Count 355 K/mm3 (142-424); Red Blood Count 5.14 M/mm3 (4.20-5.40); Red Cell Distribution Width 13.1 % (11.5-17.5); White Blood Count 9.7 K/mm3 (4.8-10.8)
[2022-08-23 11:37] LABS: Chloride 95 mmol/L (98-107)
[2022-08-23 11:38] LABS: Potassium 3.6 mmoL/L (3.5-5.1); Sodium 136 mmol/L (136-145)
[2022-08-23 11:40] LABS: Alanine Aminotransferase 26 U/L (12-78); Alkaline Phosphatase 118 U/L (38-126); Aspartate Amino Transferase 31 U/L (14-36); Bilirubin,Total 0.4 mg/dl (0.2-1.3); Blood Urea Nitrogen 14 mg/dl (7-17); Estimated Glomerular Filt Rate 72 ml/min (>60); GFR (African American) 87 ML/MIN (>60)
[2022-08-23 11:41] LABS: Albumin Level 4.5 g/dl (3.5-5.0); Albumin/Globulin Ratio 1.8 (1.1-1.8); Anion Gap 16.6 mEq/L (5-15); Calcium 9.9 mg/dl (8.4-10.2); Carbon Dioxide 28 mmol/L (22.0-30.0); Globulin 2.5 g/dL (1.3-3.2); Glucose 176 mg/dl (74-100)
== END ==
PROVIDERS: PCP Physician Assistant; Visit Provider Nurse Practitioner Obstetrics & Gynecology
DX: N95.0 Postmenopausal bleeding (principal)
CPT/HCPCS: 36415; 80053; 85025

== ENCOUNTER 2022-08-25 06:02 | Day surgery (SDC) | payer MEDICARE, OTHER, SELFPAY ==
[2022-08-25] VITALS (10 sets, daily range): BP systolic 118–149; BP diastolic 59–88; PULSE 61–72; RESP 14–18; TEMP 36.3–36.6; O2SAT 91–95; BMI 37.3
--- NOTE | 2022-08-25 08:24 | EXP.ANES.CKL ---
[facility] Medical History (Updated 08/25/22 @ 06:29 by Jose Juan Andrew RN) Abnormal stress test Angina, class IV Chest pain Chest pain Dyspnea Edema Encounter for pre-operative cardiovascular clearance Fatigue History of coronary artery disease HLD (hyperlipidemia) HTN (hypertension) Palpitations Surgical History (Updated 08/25/22 @ 06:30 by Jose Juan Andrew RN) History of cholecystectomy History of heart artery stent History of knee replacement History of tubal ligation Family History (Updated 08/25/22 @ 06:31 by Jose Juan Andrew RN) Other Family history of cancer Social History (Updated 08/25/22 @ 06:32 by Jose Juan Andrew RN) Smoking Status: Never smoker alcohol intake: never substance use type: denies use current occupational status: disabled Travel in the last 8 weeks: None household members: family housing: house current occupational exposures/hazards: No caffeine: Yes [facility] Anesthesia Checklist Patient Identification Patient Identification: Arm Band and Family Structural Data Admitted From: Direct Admit Planned Operative Procedure/s: Hysteroscopy, D & C, Polypectomy Consent for Planned Operative Procedure(s) Verified: Yes Verified Documents: Surgical Consent and History and Physical NPO Status Verified Time NPO: 00:00 Additional verifications Patient : No Anesthesia Reactions: No Hx Blood Transfusions: No Blood Transfusion Reaction: No Cephalosporin Allergy: No Previous Colonoscopy: Yes Airway Assessment C-Spine Mobility Assessed: Yes TMJ Mobility Assessed: Yes Dentition: Good Dentition Neurological Assessment Level of Consciousness: Awake, Alert, Appropriate and Follows Commands Hx Seizures: No Numbness or tingling in extremities: No Genitourinary Assessment Voided integration 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
--- NOTE | 2022-08-25 08:26 | EXP.ANES.I ---
[facility] Anesthesia Record Part I Anesthesia Record I Intake, IV Amount: 700 Estimated blood loss (mL): 30 Urine output (mL): 0 Blood Pressure: 121/59 SaO2: 93 Pulse Rate: 72 Respiratory Rate: 18 Temperature: 97.4 F Patient is:: Drowsy and Stable Stable to PACU at:: 08:15
--- NOTE | 2022-08-25 09:35 | P.OP_ITS ---
Date of procedure: 08/25/22 Pre-op Diagnosis:: Postmenopausal bleeding, endometrial polyp Post-op Diagnosis:: Postmenopausal bleeding endometrial polyp Procedure performed:: Hysteroscopy, MyoSure removal of polyp Surgeon:: Gregg Gardner MD DUPLICATION SPECIALIST:: Other ([place] Dangelo) Anesthesia: LMA Estimated blood loss (mL): 50 Clinical Note:: She is a 62-year-old lady who complains of postmenopausal bleeding. An ultrasound as well as SIS shows that she had a small endometrial polyp. Endometrial biopsy was negative. As result of that she was offered hysteroscopy, MyoSure removal of the polyp. Operative findings:: She had a 5 to 6 mm anterior polyp. It was nonsessile. Operative note:: She was taken the operating room where LMA anesthesia was found be adequate. She was prepped and draped in normal sterile fashion in the lithotomy position. Weighted speculum placed in vagina and the anterior lip of the cervix was grasped with a tenaculum. The cervix was dilated to approximately 5 mm with Campos dilators. I then inserted a hysteroscope into the uterine cavity. The findings were as previously dictated. We then changed to a MyoSure scope and using the MyoSure device I was able to easily shave off the polyp in its entirety. The shavings were sent to pathology. We then injected approximately 30 cc of 0.25% ropivacaine at the 3:00 and 9:00 positions of the cervix. She tolerated procedure well and was taken to the recovery room in excellent condition. All sponge, instrument and needle counts were correct. The estimated blood loss was less than 50 cc. Condition: stable Disposition: PACU Specimens:: Endometrial polyp/curettings Complications:: None
--- NOTE | 2022-08-26 09:08 | P.PNANES_ITS ---
[facility] Anesthesia Record Part II Anesthesia Record Part II Discharge Time: 08:45 Destination: Surgical Day Care (OP Surgery) PACU nurse assessment reviewed?: Yes Patient Condition:: Good Anesthesia Complications:: None Swallowing reflex intact?: Yes Cyanosis?: No Blood Pressure: 126/74 Pulse Rate: 71 Temperature: 97.3 F Mental Status: Alert & Oriented Pain level:: 0 Nausea and/or vomitting:: None Intake, IV Amount: 0
[2022-08-26 09:09] VITALS: BP 126/74; PULSE 71; TEMP 36.3
== END 2022-08-25 09:27 | disposition home or self-care (01) ==
PROVIDERS: PCP Physician Assistant; Visit Provider Nurse Practitioner Obstetrics & Gynecology
PROC: 0UB98ZZ Excision of Uterus, Via Natural or Artificial Opening Endoscopic (ICD-10-PCS; CPT 58558; principal; 2022-08-25 07:30)
DX: N95.0 Postmenopausal bleeding (principal); N84.0 Polyp of corpus uteri
CPT/HCPCS: 58558; 88305; 96374; J2405

== ENCOUNTER → 2022-10-05 08:30 | Outpatient (CLI) | payer MEDICARE, OTHER, SELFPAY ==
--- NOTE | 2022-10-05 08:30 | MM_ITS ---
PROCEDURE INFORMATION: Exam: MG Bilateral Screening 3D Mammography Exam date and time: 10/05/2022 8:22 AM Age: 62 years old Clinical indication: Screening examination TECHNIQUE: Imaging protocol: Bilateral Screening tomosynthesis and 2D mammography including computer-aided detection (CAD) when performed. COMPARISON: 1. MG MM DIG SCREENING MAMM BI W/CAD 05/21/2021 12:55 PM 2. MG MM DIG SCREENING MAMM BI W/CAD 11/19/2019 8:07 AM FINDINGS: MAMMOGRAPHY: Breast composition: The breasts are extremely dense, which lowers the sensitivity of mammography. Mass: None. Architectural distortion: None. Calcifications: No suspicious calcifications. Asymmetric density: None. Skin thickening: None. Axillary adenopathy: None. IMPRESSION: No mammographic evidence of malignancy. Annual screening is recommended unless otherwise clinically indicated. ASSESSMENT: BI-RADS Category 1: Negative
== END ==
PROVIDERS: PCP Physician Assistant; Visit Provider Nurse Practitioner Obstetrics & Gynecology
DX: Z12.31 Encounter for screening mammogram for malignant neoplasm of breast (principal)
CPT/HCPCS: 77063; 77067

== ENCOUNTER → 2022-12-10 21:18 | Outpatient (CLI) | payer MEDICARE, OTHER, SELFPAY | PROVIDERS: PCP Student in an Organized Health Care Education/Training Program; Visit Provider Student in an Organized Health Care Education/Training Program | DX: N39.0 Urinary tract infection, site not specified (principal) | CPT/HCPCS: 87086 ==

== ENCOUNTER → 2023-08-02 13:49 | Outpatient (CLI) | payer MEDICARE, OTHER, SELFPAY ==
--- NOTE | 2023-08-02 14:06 | XR_ITS ---
FINAL REPORT CLINICAL HISTORY: cough, hemptysis COMPARISON: 01/20/2022 FINDINGS: Two views of the chest were obtained. The heart size and pulmonary vascularity are within normal limits. The mediastinum is normal. No acute pulmonary abnormality is identified. There is no pneumothorax. The bony thorax is intact. IMPRESSION: No active cardiopulmonary disease. Reviewed, Interpreted and Dictated by Polo Flowers III, MD Transcribed by Marisabel Thompson Authenticated and [facility]
[2023-08-02 14:14] LABS: Basophils # 0.1 K/mm3 (0-0.2); Basophils % 0.5 % (0.1-2.0); Eosinophils # 0.4 K/mm3 (0.0-0.4); Eosinophils % 3.4 % (0.1-12.0); Hematocrit 40.4 % (37.0-47.0); Hemoglobin 14.1 g/dL (12.2-16.2); Lymphocytes # 3.1 K/mm3 (0.7-4.5); Lymphocytes % 29.1 % (10-50); Mean Corpuscular HGB Conc 34.9 g/dL (31.8-35.4); Mean Corpuscular Hemoglobin 30.3 pg (27.0-31.2); Mean Corpuscular Volume 86.7 fl (81-99); Mean Platelet Volume 9.4 fl (7.4-10.4); Monocytes # 0.4 K/mm3 (0.1-1.0); Monocytes % 4.2 % (1.7-9.3); Neutrophils # 6.7 K/mm3 (1.8-7.8); Neutrophils % 62.9 % (37.0-80.0); Platelet Count 287 K/mm3 (142-424); Red Blood Count 4.65 M/mm3 (4.20-5.40); Red Cell Distribution Width 13.5 % (11.5-17.5); White Blood Count 10.6 K/mm3 (4.8-10.8)
[2023-08-02 15:00] LABS: Alanine Aminotransferase 23 U/L (12-78); Albumin Level 4.1 g/dl (3.5-5.0); Albumin/Globulin Ratio 1.5 (1.1-1.8); Anion Gap 11.6 mEq/L (5-15); Aspartate Amino Transferase 27 U/L (14-36); Bilirubin,Total 0.2 mg/dl (0.2-1.3); Blood Urea Nitrogen 11 mg/dl (7-17); Calcium 9.3 mg/dl (8.4-10.2); Carbon Dioxide 31 mmol/L (22.0-30.0); Chloride 98 mmol/L (98-107); Cholesterol 161 mg/dl (140-200); Estimated Glomerular Filt Rate 63 ml/min (>60); GFR (African American) 76 ML/MIN (>60); Globulin 2.8 g/dL (1.3-3.2); Glucose 185 mg/dl (74-100); HDL Cholesterol 38 mg/dl (40-60); Potassium 3.6 mmoL/L (3.5-5.1); Sodium 137 mmol/L (136-145); Total Protein,Serum 6.9 g/dl (6.3-8.2)
[2023-08-02 15:01] LABS: Alkaline Phosphatase 95 U/L (38-126); Chol/HDL Ratio 4.2 (1-3.5)
[2023-08-02 15:03] LABS: D-Dimer 0.36 ug/mL (0.0-0.5)
[2023-08-02 15:11] LABS: Direct LDL Cholesterol 83.43 mg/dL (100-129)
[2023-08-02 15:16] LABS: Triglycerides 429 mg/dl (30-150)
[2023-08-02 15:17] LABS: 25-OH Vitamin D, Total 46.3 ng/mL (30-100)
[2023-08-02 15:33] LABS: Thyroid Stimulating Hormone 2.49 uIU/mL (0.465-4.68)
[2023-08-03 08:15] LABS: Hemoglobin A1C 6.7 % (4.0-6.0)
== END ==
PROVIDERS: PCP Physician Assistant; Visit Provider Student in an Organized Health Care Education/Training Program
DX: R73.9 Hyperglycemia, unspecified (principal); I25.118 Atherosclerotic heart disease of native coronary artery with other forms of angina pectoris; R00.2 Palpitations; J32.9 Chronic sinusitis, unspecified; E55.9 Vitamin D deficiency, unspecified; R04.2 Hemoptysis; R05.9 Cough, unspecified; N39.0 Urinary tract infection, site not specified
CPT/HCPCS: 36415; 71046; 80053; 80061; 82306; 83036; 84443; 85025; 85378; 87086; 87635

== ENCOUNTER → 2023-08-18 07:30 | Outpatient (CLI) | payer MEDICARE, OTHER, SELFPAY ==
--- NOTE | 2023-08-18 07:34 | NM_ITS ---
APPROVED REPORT Exam: Nuclear Stress Test Indication: chest pain..fatigue..soa Patient Location: Outpatient Stress Tech: Joann Peraza [place] Tech:ELAINE Pastrana RT(R)(N) Ht: 5 ft 3 in Wt: 217 lbs Bra Size: 40dd HR: 64 bpm BP: 141/48 mmHg BSA: 2.00 m2 Rhythm: NSR TID: 1.05 BMI: 38.4 History: chest pain..fatigue..soa Procedure: Patient received 0.4 mg of intravenous Lexiscan, resting heart rate 64 bpm, resting blood pressure 141/48 mmHg, with Lexiscan maximum heart rate achieved was 79 bpm which is 85 % of the maximum predicted heart rate and blood pressure was 141/48 mmHg. With Lexiscan, patient denied any complaint of chest pain. Cardiac Stress and Resting SPECT Images: Cardiac Stress and Resting SPECT images were obtained using technetium 99m Myoview 32.4 mCi stress and 10.04 mCi at rest. Resting and stress imaging in supine and prone positions demonstrate no evidence of fixed or reversible perfusion defects. Gated imaging demonstrates normal global and regional LV systolic function. LVEF is calculated at 66%. Conclusion: Mo evidence of fixed or reversible perfusion defects. Gated imaging demonstrates normal global and regional LV systolic function. LVEF is calculated at 66%. Electronically signed by : Leeann Allen MD 08/23/2023 13:09:20
--- NOTE | 2023-08-18 07:48 | CA_ITS ---
APPROVED REPORT EXAM: Comprehensive 2D, Doppler, and color-flow Echocardiogram Clinical Psychologist Licensed: Rosa M Kaur RT(R) Ht: 5 ft 3 in Wt: 217lbs BSA: 2.00 BP: 165/76 mmHg Indications: CP, HTN, hyperlipidemia, CAD, GERD 2D Dimensions Aortic Root 1.91 cm F: 2.7 - 3.3 LA Volume 43.70 mL LA Volume Index 21.85 mL/m2 (M/F) 16-34 M-Mode Dimensions RVDd 2.72 cm (0.9-2.6) LA Diam 3.19 cm (1.9-4.0) LVDd 4.65 cm (3.5-5.7) Ao Diam 2.55 cm (2.0-3.7) LVDs 3.36 cm (3.5-5.7) IVSd 0.68 cm (0.6-1.1) PWd 0.57 cm (0.6-1.1) EF (Teich) 53.80% FS 27.70% EDV (Teich) 99.80 mL ESV (Teich) 46.10 mL LV Diastology E Decel Time 207.00 (160-240 msec) E/A Ratio 0.8 MED E' 5.90 (< 7 cm/sec) E'/MED E' Ratio 10.32 (>14) LAT E' 9.00 (<10 cm/sec) E/LAT E' Ratio 6.77 (>14) Mitral Valve MV E Max Olivier. 61.00 (40-130 cm/s) MV A Velocity 81.00 (40-130 cm/s) E/A Ratio 0.75 MV Decel. Time 207.00 (160-240 ms) MV PHT 61.00 ms Tricuspid Valve TR P. Velocity 278.00 cm/s RAP Estimate 10.00 mmHg RVSP 40.90 mmHg Left Ventricle The left ventricle is normal size. The left ventricular systolic function is normal. The left ventricular ejection fraction is within the normal range. There is normal left ventricular wall thickness. There is normal LV segmental wall motion. The left ventricular diastolic function is normal. LVEF is 60%. Right Ventricle The right ventricle is normal size. The right ventricular systolic function is normal. Atria The left atrium size is normal. The right atrium size is normal. The interatrial septum is not well visualized. Aortic Valve The aortic valve is mildly thickened. There is no aortic valvular stenosis. No aortic regurgitation is present. Mitral Valve The mitral valve leaflets are mildly thickened. No evidence of mitral valve stenosis. Trace mitral valve regurgitation noted. Tricuspid Valve The tricuspid valve leaflets are thin and pliable. Mild tricuspid regurgitation. RVSP is 31 mmHg + RA pressure. Pulmonic Valve The pulmonary valve is normal in structure. Trace pulmonic regurgitation. Great Vessels The aortic root is normal in size. The ascending aorta is normal in size. The IVC is not well visualized. Pericardium There is no pericardial effusion. Other Information Study Quality: Fair Conclusion Normal biventricular systolic function. No significant valvular stenosis or regurgitation. RVSP is 31 mmHg + RA pressure. Electronically signed by : Leeann Allen MD 08/19/2023 23:42:17
--- NOTE | 2023-08-18 08:58 | CA_ITS ---
APPROVED REPORT Exam: Pharmacologic Technologist: Joann Palacios, Ht: 5 ft 3 in Wt: 217 lbs BSA: 2.00 m2 HR: 59 bpm BP: 141/48 mmHg Rhythm: NSR Medical History Medications: Amlodipine,,,,, Aspirin,,,,, Pantoprazole,,,,, Vit D3,,,,, Vit B,,,,, CloPIdogrel,,,,, BisOPROLOL Fumarate,,,,, Zinc,,,,, Coenzyme Q10,,,,, Evolocumab,,,,, Venlafaxine eR,,,,, TriaMterene-hydrochlorothiazide,,,,, Stress Test Details Test: LEXISCAN Reason for pharmacologic stress test: physical limitation. HR Resting HR: 64 bpm Max Heart Rate (APMHR): 155 bpm Max HR Achieved: 79 bpm Target HR (85% APMHR): 132 bpm % of APMHR: 51 Recovery HR: 65 bpm BP Resting BP: 141/48 mmHg Max BP: 141/48 mmHg Recovery BP: 126.0/62.0 mmHg ECG Resting ECG: NSR, low voltage QRS Stress ECG: No significant ST changes Arrhythmia: PACs Clinical Exercise duration: 04:01 min Highest Stage Achieved: Stress ECG Conclusion Symptoms: Mild head discomfort. No CP. Arrhythmias/Ectopy: Rare PACs. ST-T Changes: No significant ST changes. Conclusion: Unremarkable Lexiscan stress. Myoview images reported separately. Test Summary REST 04:11 . . 64 . 141/ 48 . . Stage 1 01:00 . . 79 . . . . Stage 2 01:00 . . 73 . . . . Stage 3 01:00 . . 69 . 135/ 60 . . Stage 4 01:00 . . 69 . 128/ 56 . . Stage 4 01:01 . . 69 . 128/ 56 . Stop exercise at 04:01 RECOVERY 01:00 . . 67 . 134/ 57 . . RECOVERY 02:00 . . 66 . 134/ 57 . . RECOVERY 03:00 . . 66 . 126/ 63 . . RECOVERY 03:33 . . 65 . 126/ 62 . . Electronically signed by : Leeann Allen MD 08/23/2023 13:02:21
== END ==
PROVIDERS: PCP Physician Assistant; Visit Provider Nurse Practitioner Family
DX: E78.5 Hyperlipidemia, unspecified (principal); I10 Essential (primary) hypertension; Z95.5 Presence of coronary angioplasty implant and graft; I25.118 Atherosclerotic heart disease of native coronary artery with other forms of angina pectoris
CPT/HCPCS: 78452; 93017; 93306; A9502; J2785

== ENCOUNTER → 2023-10-03 14:23 | Outpatient (CLI) | payer MEDICARE, OTHER, SELFPAY ==
--- NOTE | 2023-10-03 14:27 | XR_ITS ---
FINAL REPORT TECHNIQUE: Multiple views left ribs CLINICAL HISTORY: left rib pain COMPARISON: None FINDINGS: LEFT RIBS: Multiple views of the left ribs failed to reveal any evidence of displaced fracture, or pneumothorax. No significant bony abnormality is identified. IMPRESSION: No evidence of displaced fracture of the left ribs. Reviewed, Interpreted and Dictated by Daron Yoo MD Transcribed by Marisabel Thompson Authenticated and [facility]
== END ==
PROVIDERS: PCP Physician Assistant; Visit Provider Physician Assistant
DX: R07.81 Pleurodynia (principal)
CPT/HCPCS: 71101

== ENCOUNTER 2023-11-14 12:49 | Outpatient (CLI) | payer MEDICARE, OTHER, SELFPAY ==
--- NOTE | 2023-11-14 12:49 | MM_ITS ---
PROCEDURE INFORMATION: Exam: MG Bilateral Screening 3D Mammography Exam date and time: 11/14/2023 1:05 PM Age: 63 years old Clinical indication: Screening examination TECHNIQUE: Imaging protocol: Bilateral Screening tomosynthesis and 2D mammography including computer-aided detection (CAD) when performed. COMPARISON: 1. MG MM DIG SCREENING MAMM BI W/CAD 10/05/2022 8:22 AM 2. MG MM DIG SCREENING MAMM BI W/CAD 05/21/2021 12:55 PM 3. MG MM DIG SCREENING MAMM BI W/CAD 11/19/2019 8:07 AM FINDINGS: MAMMOGRAPHY: Breast composition: The breasts are extremely dense, which lowers the sensitivity of mammography. Mass: Questionable partially imaged 1.1 cm mass in the 3 o'clock position of the outer left breast, posterior depth, best seen on CC frame 27 and MLO frame 35 . No suspicious mass in the right breast. Architectural distortion: No suspicious distortion. Calcifications: No suspicious calcifications. Asymmetric density: None. Skin thickening: None. Axillary adenopathy: None. IMPRESSION: 1. Recommend left breast spot compression CC/MLO view, full field exaggerated CC lateral view, full field true lateral view and ultrasound for further evaluation of a questionable mass in the posterior outer left breast. 2. No definite mammographic evidence of malignancy in the right breast. ASSESSMENT: BI-RADS Category 0: Incomplete- Need Additional Imaging Evaluation and/or Prior Mammograms for Comparison
== END 2023-11-14 23:59 ==
LOC: RAD 12:49
PROVIDERS: PCP Physician Assistant; Visit Provider Physician Assistant
DX: Z12.31 Encounter for screening mammogram for malignant neoplasm of breast (principal)
CPT/HCPCS: 77063; 77067

== ENCOUNTER 2023-11-29 13:35 | Outpatient (CLI) | payer MEDICARE, OTHER, SELFPAY ==
--- NOTE | 2023-11-29 13:35 | MM_ITS ---
PROCEDURE INFORMATION: Exam: US Left Breast, Complete MG Left Diagnostic Breast Tomosynthesis Exam date and time: 11/29/2023 1:43 PM Age: 63 years old Clinical indication: Patient recalled on the basis of a screening mammogram for further evaluation; Left breast; mass TECHNIQUE: Imaging protocol: Complete ultrasound of all four quadrants of the left breast and the retroareolar regions, including ultrasound of the axilla when performed. Left Diagnostic tomosynthesis and 2D mammography including computer-aided detection (CAD) when performed. Unilateral or bilateral exam. COMPARISON: 1. MG MM DIG SCREENING MAMM BI W/CAD 11/14/2023 1:05 PM 2. MG MM DIG SCREENING MAMM BI W/CAD 10/05/2022 8:22 AM FINDINGS: MAMMOGRAPHY: Digital diagnostic spot compression views of the left breast and 90 degree lateral view of the left breast demonstrate normal overlapping fibroglandular structures without persistent mass or asymmetry identified. ULTRASOUND: Sonographic images of the left breast including the retroareolar region, all 4 quadrants and the axilla demonstrates a questionable solid mass versus an island of fibroglandular or fibrocystic structures in the deep left 2 o'clock axis 5 cm from the nipple measuring 0.8 0.8 x 0.3 cm. Few scattered simple and debris-filled cysts are noted throughout the left breast measuring up to 0.9 cm in the 4 o'clock axis 6 cm from the nipple. Persistent placed over incidental subcutaneous subcentimeter lipoma in the lower inner quadrant. No architectural distortion or acoustical shadowing. No skin thickening or axillary adenopathy. IMPRESSION: Questionable solid mass in the deep left 2 o'clock axis. This is only seen on sonography. A six-month follow-up targeted breast ultrasound is recommended to ensure stability over time ASSESSMENT: BI-RADS Category 3: Probably benign
== END 2023-11-29 23:59 ==
LOC: RAD 13:35
PROVIDERS: PCP Physician Assistant; Visit Provider Physician Assistant
DX: R92.8 Other abnormal and inconclusive findings on diagnostic imaging of breast (principal)
CPT/HCPCS: 76641; 77061; 77065; G0279

== ENCOUNTER 2023-12-30 06:19 | Day surgery (SDC) | payer MEDICARE, OTHER, SELFPAY ==
[2023-12-30 06:47] VITALS: BP 150/85; PULSE 77; RESP 18; TEMP 36.9; O2SAT 94; BMI 37.2
--- NOTE | 2023-12-30 06:51 | HMH.SCOPE ---
Procedure: Date: 12/30/23 Patient Date of :: 1960 Procedure Performed:: Colonoscopy to terminal ileum with polypectomy Indications:: Patient is a 63-year-old female with a positive family history of colon cancer in her mother and sibling. She has had multiple previous colonoscopies. She had colonoscopy twice in 2011, 2013, and [address] Medina. She has a history of adenomatous polyps including villous adenoma with high-grade dysplasia. I had performed a colonoscopy in 2016 at which time she had a couple of tubular adenomas and I performed follow-up colonoscopy July 2020 at which time she had a tubular adenoma and several hyperplastic polyps. Performing Provider:: Polo Quevedo MD Referring Provider:: Sherly Soto Sedation:: MAC sedation Procedure:: Patient history was obtained and appropriate physical examination was performed. Patient's medications and allergies were reviewed. Informed consent was obtained after explaining the benefits, alternatives, and risks of the procedure including, but not limited to, bleeding, perforation, missed lesions, and adverse reaction to anesthesia medications. Patient was transported to endoscopy procedure room. Patient was connected to monitoring devices. Throughout the procedure the patient's blood pressure, pulse, and oxygen saturations were monitored continuously. Patient identification and planned procedure were verified by the staff. Patient was positioned in lateral decubitus position. Digital anorectal exam was performed. Variable stiffness Olympus colonoscope was inserted and advanced under direct visualization to the cecum. Adequacy of the colonic preparation was noted. The colonoscope was advanced a short distance into the terminal ileum. The colonoscope was then slowly withdrawn while carefully examining the color, texture, anatomy, and integrity of the mucosoa circumferentially. Colonoscope was then withdrawn. . In the cecum there was a small adenomatous appearing polyp. This was removed with cold cutting snare with residual tissue at the base removed with biopsy forceps. Interestingly the polyp was initially unable to be suctioned through the colonoscope. In the ascending colon there was a small polyp removed with cold snare and interestingly it was unable to be suctioned through the colonoscope. It was withdrawn into the colonoscope with the biopsy forceps. Flushing of the colonoscope did not initially produce the polyp. In the sigmoid colon there was a small to moderate about 5 mm sessile adenomatous appearing polyp removed with cold snare. This initially would not suction through the colonoscope. Colonoscope was reinserted to the ileocecal valve and slowly withdrawn and there was no polypoid tissue noted. Retroflexion within the rectum was unable to be performed. After the colonoscope was withdrawn suctioning was performed through the colonoscope and a couple of polyps were retrieved. It was impossible to determine the original location of these however. . Findings:: Couple small cecal adenomatous appearing polyps Ascending colon adenomatous appearing polyp Sigmoid colon adenomatous appearing polyp Recommendations:: May be difficult to determine the origin of the polyp. However she had 4 small adenomatous appearing polyps. Likely repeat colonoscopy 3 years. Complications:: None immediately apparent Estimated blood obtained (mL): 2 Colonoscopy Component Colonoscopy Component Was a colonoscopy performed during today's procedure?: Yes Recommended follow up colonoscopy of at least 10 years?: No If no, follow up colonoscopy recommended in ___ years?: 3 Reason for not recommending >/= 10 yr follow-up interval?: Polyps and family history
[2023-12-30] MEDS: LACTATED RINGERS 1000ML 1,000 ML 25 ML IV (07:07)
--- NOTE | 2023-12-30 07:07 | EXP.ANES.CKL ---
[facility] Disclaimer: The information contained in this section may have been updated after the patient was seen, as this information can be updated by other users. Medical History Hearing loss History of gastroesophageal reflux (GERD) History of coronary artery disease Encounter for pre-operative cardiovascular clearance Typical angina Unstable angina Angina pectoris Dyspnea Chest pain Abnormal stress test Angina, class IV Edema Fatigue Palpitations HLD (hyperlipidemia) HTN (hypertension) Chest pain Post-menopausal Surgical History History of tubal ligation History of cholecystectomy History of knee replacement History of heart artery stent Family History Other Family history of cancer Social History Smoking Status: Never smoker alcohol intake: never substance use type: denies use current occupational status: retired and disabled Travel in the last 8 weeks: None household members: family housing: house current occupational exposures/hazards: No caffeine: No [facility] Anesthesia Checklist Patient Identification Patient Identification: Arm Band and Verbal (Name & ) Structural Data Admitted From: Home Planned Operative Procedure/s: Colonoscopy Consent for Planned Operative Procedure(s) Verified: Yes NPO Status Verified Time NPO: 00:00 Chart Verification Results Verified: CBC and BMP Additional verifications Anesthesia Reactions: No Hx Blood Transfusions: No Blood Transfusion Reaction: No Airway Assessment Mallampati Score:: Class IV C-Spine Mobility Assessed: Yes TMJ Mobility Assessed: Yes Dentition: Good Dentition Neurological Assessment Level of Consciousness: Awake Hx Seizures: No Numbness or tingling in extremities: No Anesthesia Plan Anesthesia Risk discussed: Yes Anesthesia Plan: Verified ASA Class: III Anesthesia Type: MAC
[2023-12-30 07:15] LABS: Urine Pregnancy, HCG Qual. Negative (Negative)
[2023-12-30 07:25] VITALS: O2SAT 97
[2023-12-30 08:11] VITALS: BP 104/60; PULSE 64; RESP 14; O2SAT 94
[2023-12-30 08:21] VITALS: BP 100/56; PULSE 63; RESP 14; O2SAT 93
--- NOTE | 2023-12-30 08:27 | SUR.PHASEII ---
0811: Pt arrived to [place] with RADIO OPERATOR and RN. Oral airway in place.
--- NOTE | 2023-12-30 08:27 | SUR.PHASEII ---
0825: Pt waking up. Oral airway removed with no incident.
[2023-12-30 08:31] VITALS: BP 111/59; PULSE 61; RESP 18; O2SAT 96
[2023-12-30 08:33] VITALS: BP 138/89; PULSE 66; RESP 16; O2SAT 96
[2023-12-30 10:36] LABS: POC Glucose,Bedside 125 (70-110)
== END 2023-12-30 08:43 | disposition home or self-care (01) ==
PROVIDERS: PCP Physician Assistant; Visit Provider Surgery
PROC: 0DJD8ZZ Inspection of Lower Intestinal Tract, Via Natural or Artificial Opening Endoscopic (ICD-10-PCS; CPT 45380; principal; 2023-12-30 07:30)
DX: Z12.11 Encounter for screening for malignant neoplasm of colon (principal); D12.0 Benign neoplasm of cecum; D12.2 Benign neoplasm of ascending colon; D12.6 Benign neoplasm of colon, unspecified; D12.5 Benign neoplasm of sigmoid colon; Z80.0 Family history of malignant neoplasm of digestive organs; E11.9 Type 2 diabetes mellitus without complications
CPT/HCPCS: 45380; 81025; 82962; 88305

== ENCOUNTER 2024-03-05 09:44 | Outpatient (CLI) | payer MEDICARE, OTHER, SELFPAY ==
--- NOTE | 2024-03-05 09:49 | XR_ITS ---
FINAL REPORT CLINICAL HISTORY: fall bruised and swollen anterior below knee COMPARISON: None FINDINGS: AP and lateral views of the right tibia and fibula were obtained. There is no prior exam for comparison. There is no acute fracture of the right tibia or fibula. There is mild to moderate degenerative change present with multiple soft tissue calcifications. The knee and ankle appear intact. There is soft tissue swelling present in the anterior soft tissues. IMPRESSION: No acute osseous abnormality of the right tibia or fibula. Reviewed, Interpreted and Dictated by Polo Flowers III, MD Transcribed by Marisabel Thompson Authenticated and . [facility]
== END 2024-03-05 23:59 | disposition home or self-care (01) ==
LOC: RAD 09:46
PROVIDERS: PCP Physician Assistant; Visit Provider Student in an Organized Health Care Education/Training Program
DX: M79.662 Pain in left lower leg (principal); S89.92XA Unspecified injury of left lower leg, initial encounter; W19.XXXA Unspecified fall, initial encounter
CPT/HCPCS: 73590

== ENCOUNTER 2024-03-20 10:22 | Outpatient (CLI) | payer MEDICARE, OTHER, SELFPAY ==
[2024-03-20 10:58] LABS: Basophils # 0.1 K/mm3 (0-0.2); Basophils % 0.9 % (0.1-2.0); Eosinophils # 0.2 K/mm3 (0.0-0.4); Eosinophils % 2.4 % (0.1-12.0); Hematocrit 44.9 % (37.0-47.0); Lymphocytes # 2.8 K/mm3 (0.7-4.5); Lymphocytes % 27.9 % (10-50); Mean Corpuscular HGB Conc 33.3 g/dL (31.8-35.4); Mean Corpuscular Hemoglobin 28.3 pg (27.0-31.2); Mean Platelet Volume 9.4 fl (7.4-10.4); Monocytes # 0.5 K/mm3 (0.1-1.0); Monocytes % 4.6 % (1.7-9.3); Neutrophils # 6.4 K/mm3 (1.8-7.8); Neutrophils % 64.2 % (37.0-80.0); Platelet Count 327 K/mm3 (142-424); Red Blood Count 5.28 M/mm3 (4.20-5.40); Red Cell Distribution Width 13.6 % (11.5-17.5)
[2024-03-20 11:24] LABS: Alanine Aminotransferase 19 U/L (12-78); Albumin Level 4.3 g/dl (3.5-5.0); Alkaline Phosphatase 99 U/L (38-126); Aspartate Amino Transferase 33 U/L (14-36); Bilirubin,Direct 0.1 mg/dl (0.0-0.4); Bilirubin,Indirect 0.5 mg/dL (0.0-0.9); Bilirubin,Total 0.6 mg/dl (0.2-1.3); Bilirubin,Unconjugated 0.5 mg/dL (0.0-1.1); Blood Urea Nitrogen 13 mg/dl (7-17); Carbon Dioxide 30 mmol/L (22.0-30.0); Chloride 99 mmol/L (98-107); Chol/HDL Ratio 3.3 (1-3.5); Cholesterol 204 mg/dl (140-200); Estimated Glomerular Filt Rate 56 ml/min (>60); GFR (African American) 67 ML/MIN (>60); Glucose 119 mg/dl (74-100); HDL Cholesterol 62 mg/dl (40-60); Magnesium 1.8 mg/dl (1.6-2.3); Sodium 137 mmol/L (136-145); Total Protein,Serum 7.2 g/dl (6.3-8.2); Triglycerides 153 mg/dl (30-150); VLDL Cholesterol 31 mg/dL (0-40)
[2024-03-20 11:25] LABS: Anion Gap 12.2 mEq/L (5-15); Potassium 4.2 mmoL/L (3.5-5.1)
[2024-03-20 11:35] LABS: Direct LDL Cholesterol 125.74 mg/dL (100-129)
[2024-03-20 11:44] LABS: Hemoglobin A1C 6.1 % (4.0-6.0)
[2024-03-20 11:53] LABS: Free T4 (Free Thyroxine) 1.28 ng/dl (0.78-2.19)
== END 2024-03-20 23:59 | disposition home or self-care (01) ==
LOC: LAB 10:23
PROVIDERS: PCP Physician Assistant; Visit Provider Physician Assistant
DX: I25.118 Atherosclerotic heart disease of native coronary artery with other forms of angina pectoris (principal); Z95.5 Presence of coronary angioplasty implant and graft; E78.2 Mixed hyperlipidemia; I10 Essential (primary) hypertension; R73.09 Other abnormal glucose
CPT/HCPCS: 36415; 80048; 80061; 80076; 83036; 83735; 84439; 84443; 85025

== ENCOUNTER 2024-05-14 10:29 | Outpatient (CLI) | payer MEDICARE, OTHER, SELFPAY ==
--- NOTE | 2024-05-14 10:36 | CA_ITS ---
FINAL REPORT TECHNIQUE: Compression merino scale and Doppler evaluation CLINICAL HISTORY: edema LLE. Patient states 5 days ago she was moving furniture upstairs and noticed edema and pain to LLE. Denies trauma. States she takes a blood thinner but unsure of which one. She has a knot on the anterior distal knee. Pain to posterior knee. obesity, HTN. FINDINGS: Femoral and popliteal veins show normal compressibility and flow. Visualized portion of the calf veins are patent by Doppler exam. IMPRESSION: No evidence of left lower extremity deep venous thrombosis Reviewed, Interpreted and Dictated by Lourdes Rabago MD Transcribed by Alina Lawson Authenticated and [facility]
== END 2024-05-14 23:59 | disposition home or self-care (01) ==
LOC: RT 10:30
PROVIDERS: PCP Physician Assistant; Visit Provider Student in an Organized Health Care Education/Training Program
DX: R60.0 Localized edema (principal); R30.0 Dysuria
CPT/HCPCS: 87086; 93971

== ENCOUNTER 2024-05-15 08:11 | Day surgery (SDC) | payer MEDICARE, OTHER, SELFPAY ==
[2024-05-15 09:16] VITALS: BP 141/64; PULSE 66; RESP 18; TEMP 36.5; O2SAT 97; BMI 36.3
[2024-05-15] MEDS: PHENYLEPHRINE 2.5% OPHTH SOLN 2ML OP ×3 (09:20→09:30)
[2024-05-15] MEDS: CYCLOPENTOLATE 2% OPHTH SOLN 2ML BOTTLE OP ×3 (09:20→09:30)
[2024-05-15] MEDS: TETRACAINE 0.5% OPTH SOL 15ML OP ×4 (09:20→09:35)
[2024-05-15 09:24] VITALS: BP 141/64; PULSE 66; RESP 18; TEMP 36.5; O2SAT 97
[2024-05-15 09:26] LABS: POC Glucose,Bedside 135 (70-110)
[2024-05-15] MEDS: LACTATED RINGERS 1000ML 1,000 ML 25 ML IV (09:29)
[2024-05-15 10:17] VITALS: BP 129/68; PULSE 54; RESP 16; TEMP 36.6; O2SAT 96
[2024-05-15] MEDS: MIDAZOLAM 2MG/2ML VIAL 1 MG IV (10:17)
[2024-05-15] MEDS: LIDOCAINE 1% PF 2ML AMPULE 2 ML IJ (10:20)
[2024-05-15] MEDS: TIMOLOL 0.5% OPTH SOLN 5ML OP (10:20)
[2024-05-15] MEDS: TRYPAN BLUE 0.5 ML SYRINGE IO (10:20)
[2024-05-15 10:22] VITALS: BP 126/67; PULSE 55; RESP 16; TEMP 36.6; O2SAT 96
[2024-05-15 10:27] VITALS: BP 129/70; PULSE 58; RESP 16; TEMP 36.6; O2SAT 96
[2024-05-15 10:35] VITALS: BP 143/71; PULSE 59; RESP 16; TEMP 36.2; O2SAT 94
--- NOTE | 2024-05-15 12:05 | P.PCN_ITS ---
[facility] Procedure Note Date: 05/15/24 Time: 12:05 Procedure Note:: Preoperative Diagnosis: Cataract combined NS Cortical Complex [Right] Eye Postop diagnosis: same Operation: Microscopic phacoemulsification with intraocular lens implant [Right] Eye Specimen: None Blood Loss: None The patient was examined in the office with a complaint of poor vision in the [right] eye. The patient reports that this interferes with ADLs such as reading, watching TV and/or driving or the vision is like looking through a foggy haze and is very troubling. The patient was examined and found to have a visually significant cataract with best corrected vision of [20/400] by refraction and/or glare testing. Treatment options, risks and benefits were explained and the patient elected to have cataract surgery in an attempt to improve their vision. The patient had the eye anesthetized with topical tetracaine, the eye ways prepped and draped in the usual fashion for cataract surgery. A paracentesis and a temporal keratotomy were made. 0.2cc of 1% lidocaine PF was placed into the anterior chamber. And aqueous/viscoelastic exchange was done and a 360 degree capsulorexis was performed. Through hydrodissection and delineation with BSS on a cannula was done. The lens nucleus was phecoemulsified with CDE of [9.52]. Residual cortical material was removed using automated I&A The capsular bag was deepened with viscoelastica and a PCIOL was placed in the capsular bag with good centration and stability. Residual viscoelastic was removed using automated I&A. The keratotomy incision was hydrated with BSS on a cannula. The wound were checked and found to be water tight. IOP was checked digitally and adjusted as needed so as not to be too high. 1 drop of timolol 0.5%, ofloxacin, prednisolone acetate and ketorolac was instilled and eye shield taped over the eye. The patient was taken to recovery in good condition and will be seen postoperatively.
== END 2024-05-15 10:45 | disposition home or self-care (01) ==
PROVIDERS: PCP Physician Assistant; Visit Provider Ophthalmology
PROC: (CPT 66984; principal; 2024-05-15 10:30)
DX: H25.11 Age-related nuclear cataract, right eye (principal); H53.8 Other visual disturbances
CPT/HCPCS: 66984; 82962; J2250; J7120; V2632

== ENCOUNTER 2024-06-20 09:07 | Outpatient (CLI) | payer MEDICARE, OTHER, SELFPAY ==
[2024-06-20 10:19] LABS: Albumin Level 4.2 g/dl (3.5-5.0)
[2024-06-20 10:22] LABS: Alanine Aminotransferase 16 U/L (12-78); Aspartate Amino Transferase 27 U/L (14-36); Bilirubin,Unconjugated 0.5 mg/dL (0.0-1.1); Cholesterol 167 mg/dl (140-200); Total Protein,Serum 6.9 g/dl (6.3-8.2); Triglycerides 147 mg/dl (30-150); VLDL Cholesterol 29 mg/dL (0-40)
[2024-06-20 10:23] LABS: Alkaline Phosphatase 103 U/L (38-126); Bilirubin,Direct 0.4 mg/dl (0.0-0.4); Bilirubin,Indirect 0.4 mg/dL (0.0-0.9); Bilirubin,Total 0.8 mg/dl (0.2-1.3); Chol/HDL Ratio 3.4 (1-3.5); HDL Cholesterol 49 mg/dl (40-60)
[2024-06-20 10:34] LABS: Direct LDL Cholesterol 97.06 mg/dL (100-129)
== END 2024-06-20 23:59 | disposition home or self-care (01) ==
LOC: LAB 09:09
PROVIDERS: PCP Internal Medicine; Visit Provider Physician Assistant
DX: E78.2 Mixed hyperlipidemia (principal); I11.9 Hypertensive heart disease without heart failure; I25.118 Atherosclerotic heart disease of native coronary artery with other forms of angina pectoris; Z95.5 Presence of coronary angioplasty implant and graft
CPT/HCPCS: 36415; 80061; 80076

== ENCOUNTER → 2024-07-03 07:52 | Day surgery (SDC) | payer MEDICARE, OTHER, SELFPAY ==
[2024-06-29 12:47] VITALS: BMI 36.3
[2024-07-03] VITALS (7 sets, daily range): BP systolic 125–146; BP diastolic 61–83; PULSE 53–61; RESP 16–18; TEMP 36.1–36.6; O2SAT 94–97
--- NOTE | 2024-07-03 08:15 | SUR.PREOP ---
Notified Lourdes Cooper in Pharmacy of new order for Prednisolone Acetate 1% drops instead of Tobradex. Verbalized understanding and would bring medication to pre-op.
[2024-07-03] MEDS: PHENYLEPHRINE 2.5% OPHTH SOLN 2ML OP ×3 (09:12→09:13)
[2024-07-03] MEDS: TETRACAINE 0.5% OPTH SOL 15ML OP ×3 (09:12→09:13)
[2024-07-03] MEDS: CYCLOPENTOLATE 2% OPHTH SOLN 2ML BOTTLE OP ×3 (09:12→09:13)
[2024-07-03] MEDS: MIDAZOLAM 2MG/2ML VIAL 1 MG IV (09:58)
[2024-07-03] MEDS: LIDOCAINE 1% PF 2ML AMPULE 2 ML IJ (10:07)
[2024-07-03] MEDS: TIMOLOL 0.5% OPTH SOLN 5ML OP (10:07)
[2024-07-03] MEDS: prednisoLONE 1% OPTH SOL 5ML OP (10:09)
--- NOTE | 2024-07-03 13:19 | P.PCN_ITS ---
[facility] Procedure Note Date: 07/03/24 Time: 13:19
--- NOTE | 2024-07-03 13:19 | HMH.PROCNOTE ---
[facility] Procedure Note Date: 07/03/24 Time: 13:19
--- NOTE | 2024-07-05 11:05 | P.PCN_ITS ---
[facility] Procedure Note Date: 07/03/24 Time: 12:00
--- NOTE | 2024-07-05 11:05 | HMH.PROCNOTE ---
[facility] Procedure Note Date: 07/03/24 Time: 12:00
== END | disposition home or self-care (01) ==
PROVIDERS: PCP Internal Medicine; Visit Provider Ophthalmology
PROC: (CPT 66986; principal; 2024-07-03 10:00)
DX: T85.29XA Other mechanical complication of intraocular lens, initial encounter (principal)
CPT/HCPCS: 66986; J2250; V2632

== ENCOUNTER 2024-12-10 11:05 | Outpatient (CLI) | payer MEDICARE, OTHER, SELFPAY ==
[2024-12-10 18:11] LABS: Basophils % 0.2 % (0.1-2.0); Eosinophils % 0.2 % (0.1-12.0); Hemoglobin 14.2 g/dL (12.2-16.2); Lymphocytes # 2.8 K/mm3 (0.7-4.5); Lymphocytes % 22.9 % (10-50); Mean Corpuscular Hemoglobin 27.7 pg (27.0-31.2); Monocytes # 0.8 K/mm3 (0.1-1.0); Monocytes % 6.7 % (1.7-9.3); Neutrophils # 8.4 K/mm3 (1.8-7.8); Neutrophils % 69.3 % (37.0-80.0); Platelet Count 327 K/mm3 (142-424); Red Blood Count 5.12 M/mm3 (4.20-5.40); Red Cell Distribution Width 12.9 % (11.5-17.5); White Blood Count 12.1 K/mm3 (4.8-10.8)
[2024-12-10 19:11] LABS: Hemoglobin A1C 6.3 % (4.0-6.0)
[2024-12-10 19:40] LABS: Creatinine,Urine Random 117 mg/dL (Not Estab.); Microalbumin < 6.000 mg/L (0-16.7)
[2024-12-10 20:11] LABS: Alanine Aminotransferase 19 U/L (12-78); Albumin Level 4.7 g/dl (3.5-5.0); Albumin/Globulin Ratio 1.9 (1.1-1.8); Alkaline Phosphatase 73 U/L (38-126); Anion Gap 16.5 mEq/L (5-15); Aspartate Amino Transferase 20 U/L (14-36); Bilirubin,Total 0.5 mg/dl (0.2-1.3); Blood Urea Nitrogen 25 mg/dl (7-17); Calcium 9.7 mg/dl (8.4-10.2); Carbon Dioxide 28 mmol/L (22.0-30.0); Chloride 99 mmol/L (98-107); Chol/HDL Ratio 3.4 (1-3.5); Cholesterol 196 mg/dl (140-200); Estimated Glomerular Filt Rate 72 ml/min (>60); GFR (African American) 87 ML/MIN (>60); Globulin 2.5 g/dL (1.3-3.2); Glucose 107 mg/dl (74-100); HDL Cholesterol 57 mg/dl (40-60); Magnesium 1.9 mg/dl (1.6-2.3); Potassium 4.5 mmoL/L (3.5-5.1); Sodium 139 mmol/L (136-145); Total Protein,Serum 7.2 g/dl (6.3-8.2); Triglycerides 210 mg/dl (30-150); VLDL Cholesterol 42 mg/dL (0-40)
[2024-12-10 20:22] LABS: Direct LDL Cholesterol 113.22 mg/dL (100-129)
[2024-12-10 20:25] LABS: 25-OH Vitamin D, Total 46.2 ng/mL (30-100)
== END 2024-12-10 23:59 | disposition home or self-care (01) ==
LOC: LAB.DROPOF 12-11 15:21
PROVIDERS: PCP Internal Medicine; Visit Provider Internal Medicine
DX: R73.03 Prediabetes (principal); E78.5 Hyperlipidemia, unspecified; E66.9 Obesity, unspecified; Z68.36 Body mass index [BMI] 36.0-36.9, adult; E55.9 Vitamin D deficiency, unspecified; R92.8 Other abnormal and inconclusive findings on diagnostic imaging of breast; M79.89 Other specified soft tissue disorders; Z13.1 Encounter for screening for diabetes mellitus
CPT/HCPCS: 80053; 80061; 82043; 82306; 82570; 83036; 83735; 85025

== ENCOUNTER 2024-12-13 10:35 | Emergency (ER) | payer MEDICARE, OTHER, SELFPAY ==
[2024-12-13] VITALS (9 sets, daily range): BP systolic 113–126; BP diastolic 54–72; PULSE 55–85; RESP 12–22; TEMP 36.9; O2SAT 94–99; BMI 35.2
--- NOTE | 2024-12-13 10:35 | ECG_ITS ---
APPROVED REPORT Exam: Resting ECG HR:65 bpm ECG Measurements Heart Rate 65 AXES MI 153 P 62 QRSd 85 QRS 48 QT 379 T 76 QTc 390 Conclusion SINUS RHYTHM NORMAL ECG UNCONFIRMED REPORT Electronically signed by : Jennifer Joshua, 12/13/2024 16:36:43
--- NOTE | 2024-12-13 11:05 | XR_ITS ---
FINAL REPORT CLINICAL HISTORY: Chest pain COMPARISON: None FINDINGS: A portable view of the chest was obtained. Cardiac and mediastinal silhouettes are within normal limits. The lungs are clear. There is no pleural effusion or pneumothorax. IMPRESSION: No acute process on this portable exam. Reviewed, Interpreted and Dictated by Clarisa Campa MD Transcribed by Marisabel Thompson Authenticated and [facility]
[2024-12-13 11:10] LABS: Basophils # 0.1 K/mm3 (0-0.2); Basophils % 0.3 % (0.1-2.0); Eosinophils # 0.2 K/mm3 (0.0-0.4); Eosinophils % 1.2 % (0.1-12.0); Hematocrit 44.5 % (37.0-47.0); Hemoglobin 14.9 g/dL (12.2-16.2); Lymphocytes % 25.7 % (10-50); Mean Corpuscular HGB Conc 33.5 g/dL (31.8-35.4); Mean Corpuscular Hemoglobin 27.4 pg (27.0-31.2); Mean Platelet Volume 10.9 fl (7.4-10.4); Monocytes # 1.1 K/mm3 (0.1-1.0); Monocytes % 7.3 % (1.7-9.3); Neutrophils % 64.8 % (37.0-80.0); Platelet Count 338 K/mm3 (142-424); Red Blood Count 5.43 M/mm3 (4.20-5.40); Red Cell Distribution Width 12.5 % (11.5-17.5); White Blood Count 15.4 K/mm3 (4.8-10.8)
[2024-12-13 11:11] LABS: Albumin Level 4.5 g/dl (3.5-5.0); Chloride 100 mmol/L (98-107); Potassium 3.8 mmoL/L (3.5-5.1); Sodium 137 mmol/L (136-145)
[2024-12-13 11:14] LABS: Alanine Aminotransferase 19 U/L (12-78); Albumin/Globulin Ratio 1.7 (1.1-1.8); Alkaline Phosphatase 84 U/L (38-126); Anion Gap 10.8 mEq/L (5-15); Aspartate Amino Transferase 32 U/L (14-36); Bilirubin,Total 0.6 mg/dl (0.2-1.3); Blood Urea Nitrogen 19 mg/dl (7-17); Calcium 9.1 mg/dl (8.4-10.2); Carbon Dioxide 30 mmol/L (22.0-30.0); Creatinine Clearance Estimated 81 mL/min (50-200); Estimated Glomerular Filt Rate 63 ml/min (>60); GFR (African American) 76 ML/MIN (>60); Globulin 2.7 g/dL (1.3-3.2); Glucose 98 mg/dl (74-100); Total Protein,Serum 7.2 g/dl (6.3-8.2)
[2024-12-13 11:17] LABS: MANUAL DIFFERENTIAL MANUAL DIFFERENTIAL (MANUAL DIFF)
[2024-12-13] MEDS: ASPIRIN 81MG CHEWABLE TABLET 243 MG PO (11:23)
[2024-12-13 11:25] LABS: NT Pro Brain Natriuretic Pep. 114 pg/mL (0-125)
[2024-12-13 11:40] LABS: Troponin I < 0.01 ng/ml (0.00-0.034)
--- NOTE | 2024-12-13 11:58 | PC.NURSE ---
I rounded on the pt and helped her navigate her cell phone. pt has no new complaints at this time. no needs voiced. call brown in reach.
[2024-12-13 12:08] LABS: HIV Combo NEGATIVE (Negative)
[2024-12-13 12:16] LABS: Hepatitis C Ab Qual. W/ RFX REACTIVE (Negative)
--- NOTE | 2024-12-13 12:59 | HMH.EDCP ---
Discharge Plan Disposition Patient Disposition: Home, Self-Care Condition: Good Prescriptions Prescriptions: No Action cholecalciferol (vitamin D3) 25 mcg (1,000 unit) capsule 25 mcg PO DAILY aspirin [Aspir-81] 81 mg tablet,delayed release (DR/EC) 81 mg PO DAILY fluconazole 100 mg tablet 100 mg PO DAILY 2 Days Qty: 2 0RF (DME) blood-glucose meter [Blood Glucose Monitoring] Kit See Rx Instructions .Route Qty: 1 0RF Rx Instructions: As directed, check BG TID (DME) blood sugar diagnostic, disc Strip See Rx Instructions .Route Qty: 30 6RF Rx Instructions: As directed, check BG TID (DME) lancets 30 gauge misc See Rx Instructions .Route Qty: 100 3RF Rx Instructions: As directed, check BG TID venlafaxine [Effexor XR] 37.5 mg capsule,extended release 24hr 37.5 mg PO DAILY Qty: 90 3RF amlodipine 2.5 mg tablet 2.5 mg PO DAILY Qty: 90 3RF furosemide [Lasix] 20 mg tablet 20 mg PO DAILY PRN (Reason: edema) Qty: 7 0RF pantoprazole 40 mg tablet,delayed release (DR/EC) 40 mg PO DAILY Qty: 90 3RF bisoprolol fumarate 5 mg tablet 5 mg PO DAILY Qty: 90 3RF triamterene-hydrochlorothiazid 37.5-25 mg tablet 1 tab PO DAILY Qty: 90 3RF clopidogrel 75 mg tablet 75 mg PO DAILY Qty: 90 3RF Repatha SureClick 140 mg/mL pen injector 140 mg SQ MONTHLY Rx Instructions: ADMINISTER 1 ML UNDER THE SKIN EVERY 2 WEEKS DIRECTED FOR CHOLESTEROL Referrals Follow up/Referrals: Jose Juan Rincon DO [Primary Care Provider] - See instructions Activity Restrictions/Add. Instructions Additional Instructions/Restrictions: At this time, your cardiac evaluation was negative. Please continue to follow-up with your u.s. representative next Tuesday as previously scheduled. If your symptoms return, please return to the ER for reevaluation. Clinical Impressions Clinical Impression: Angina pectoris Instructions Patient Instructions: DI for Atypical Chest Pain Print Language Print Language: Hungarian Discharge ED Provider: Jennifer Joshua General Chief Complaint: Chest Pain Stated Complaint: CP Time Seen by Provider: 12/13/24 10:50 Mode of Arrival: Ambulatory Source of Information: Patient Limitations: No Limitations Description of Symptoms (Recalled from ER Triage Doc. by RN): pt reports she was cleaning last night when she started having mild twinges of pain in her sternal chest. pt states the pain resolved prior to going to sleep. Pt states she did not have pain on awakening this AM. Pt reports mopping this AM and the sternal chest pain returned. pt states the pain is sharp and 3/10. pt has not medicated with anything. pt takes clipidogrel and ASA for cardiac stents. pt denies SOA, abd pain or any other symptoms. History of Present Illness HPI narrative: Alfreda Lai is a 64-year-old female presenting with chest pain. Patient began having pains in the center of her chest last night. She stated they went away on their own so she did not think anything of it and went to bed. This morning, patient states that she typically sweeps prior to getting ready for the day. While sweeping, she states the pains came back and were stronger than last night. Patient states last time she had pains similar to this she needed to get cardiac stents. Patient states she takes aspirin and Plavix for her stents and is compliant with her medications, taking them this morning. Patient denies radiation to her back, arms, neck, abdomen. She denies nausea. Patient had an episode of diaphoresis when bending over during chest pain this morning. Patient denies recent URI, headache, shortness of breath, bowel or bladder dysfunction. Related Data Home Medications ?Medication ?Instructions ?Recorded ?Confirmed aspirin 81 mg tablet,delayed 81 mg PO DAILY [facility] 12/07/17 12/10/24 release (Aspir-) cholecalciferol (vitamin D3) 25 25 mcg PO DAILY Supplement 05/07/22 12/10/24 mcg (1,000 unit) capsule evolocumab 140 mg/mL subcutaneous 140 mg SQ MONTHLY 05/15/24 12/10/24 pen injector (Rossy Dill) Previous Rx's ?Medication ?Instructions ?Recorded blood sugar diagnostic, disc #30 ea 08/04/23 blood-glucose meter (Blood Glucose #1 ea 08/04/23 Monitoring kit) lancets 30 gauge #100 ea 08/04/23 venlafaxine 37.5 mg 37.5 mg PO DAILY #90 caps 02/06/24 capsule,extended release 24 hr (Effexor XR) amlodipine 2.5 mg tablet 2.5 mg PO DAILY bp #90 tabs 02/22/24 furosemide 20 mg tablet (Lasix) 20 mg PO DAILY PRN edema #7 tabs 02/22/24 pantoprazole 40 mg tablet,delayed 40 mg PO DAILY GERD #90 tabs 02/27/24 release bisoprolol fumarate 5 mg tablet 5 mg PO DAILY heart #90 tabs 02/28/24 triamterene 37.5 1 tab PO DAILY blood pressure #90 02/28/24 mg-hydrochlorothiazide 25 mg tablet tabs clopidogrel 75 mg tablet 75 mg PO DAILY Blood thinner #90 03/27/24 tabs fluconazole 100 mg tablet 100 mg PO DAILY 2 days #2 tabs 12/10/24 Allergies Allergy/AdvReac Type Severity Reaction Status Date / Time dexamethasone (From Decadron) Allergy Intermediate Hives/CHEST Verified 12/13/24 11:06 PAIN rosuvastatin (From CRESTOR) Allergy Intermediate Hives Verified 12/13/24 11:06 atorvastatin (ATORVASTATIN) Allergy Mild Hives Verified 12/13/24 11:06 colesevelam (From WELCHOL) Allergy Mild Hives Verified 12/13/24 11:06 niacin (From Niaspan Allergy Mild Hives Verified 12/13/24 11:06 Extended-Release) [facility] Disclaimer: The information contained in this section may have been updated after the patient was seen, as this information can be updated by other users. Medical History (Updated 12/13/24 @ 14:56 by Jennifer Joshua MD) Hearing loss History of gastroesophageal reflux (GERD) History of coronary artery disease Encounter for pre-operative cardiovascular clearance Typical angina Unstable angina Angina pectoris Dyspnea Chest pain Abnormal stress test Angina, class IV Edema Fatigue Palpitations HLD (hyperlipidemia) HTN (hypertension) Chest pain Post-menopausal Surgical History Hx of cataract surgery History of tubal ligation History of cholecystectomy History of knee replacement History of heart artery stent Family History Other Family history of cancer Social History Smoking Status: Never smoker alcohol intake: never substance use type: denies use current occupational status: retired and disabled Travel in the last 8 weeks: None household members: family housing: house current occupational exposures/hazards: No caffeine: Yes Have you lived/traveled outside [place] in past 30 days?: No Contact w/someone who lives/traveled outside US past 30 days?: No Exposure to someone with infectious disease in past 14 days?: No Do you have a fever (greater than 100.4 F or 38 C)?: No Have you tested positive for COVID-19: No Exposed to someone with COVID-19 in past 14 days?: No Do you have a sore throat?: No Do you have a cough?: No Do you have any weakness?: No Do you have any diarrhea?: No Are you experiencing any unusual bleeding?: No Do you have any muscle aches/pain?: No Do you have any abdominal pain?: No Are you experiencing loss of taste or smell?: No Other Medical History Have you received the Flu Vaccine for this season: No Have you received the Pneumonia Vaccine: Yes ROS Obtained: Yes All systems reviewed & no additional complaints except as documented Physical Exam General General appearance: alert and in no apparent distress Head Head exam: atraumatic Eye Eye exam: Present EOMI; Absent scleral icterus ENT ENT exam: Present normal exam Neck Neck exam: Present full ROM Expanded Neck Exam Neck exam focused ED: Absent JVD Chest Chest inspection: Present symmetric chest wall rise Respiratory Respiratory exam: Present normal lung sounds bilaterally Cardiovascular Cardiovascular exam: Present regular rate, normal rhythm and normal heart sounds Abdominal Exam Abdominal exam: Present soft; Absent distention or tenderness Extremities Exam Extremities exam: Present full ROM; Absent edema Back Exam Back exam: Present full ROM Neurological Exam Neurological exam: Present alert and oriented X3 Psychiatric Psychiatric exam: Present normal mood Skin Skin exam: Present warm and dry HEART Score HEART Score HEART Score assessment performed?: Yes History (anamnesis): Moderately suspicious ECG: Normal Age: >65 years Risk factors: Atherosclerosis history Troponin: </= normal limit HEART Score: 5 Critical Care Critical Care Time Critical Care Time: No Medical Decision Making Medical Records Medical records reviewed: Yes I reviewed the patient's medical records. Neftali Inquiry Pt receiving controlled substance: No Neftali was queried for this patient: No Vital Signs Vital Signs: 12/13/24 10:50 12/13/24 11:01 12/13/24 11:30 Temperature 98.4 F Temperature Source Oral Pulse Rate 60 57 L Pulse Rate [Left] 85 Respiratory Rate 18 12 13 Blood Pressure 118/65 126/71 Blood Pressure Source [Right Arm] Automatic Cuff Blood Pressure Position [Right Arm] Sitting 02 Sat by Pulse Oximetry 97 95 95 Oxygen Delivery Method Room Air Room Air Room Air 12/13/24 12:00 12/13/24 12:30 12/13/24 13:31 Temperature Temperature Source Pulse Rate 55 L 57 L 58 L Pulse Rate [Left] Respiratory Rate 13 17 22 Blood Pressure 122/72 113/64 113/54 L Blood Pressure Source [Right Arm] Blood Pressure Position [Right Arm] 02 Sat by Pulse Oximetry 95 95 95 Oxygen Delivery Method Room Air Room Air Room Air 12/13/24 14:00 12/13/24 14:31 12/13/24 15:10 Temperature 98.5 F Temperature Source Pulse Rate 59 L 58 L 64 Pulse Rate [Left] Respiratory Rate 13 18 Blood Pressure 125/61 125/64 122/62 Blood Pressure Source [Right Arm] Blood Pressure Position [Right Arm] 02 Sat by Pulse Oximetry 97 94 L Oxygen Delivery Method Room Air Room Air Lab Data Lab results reviewed: Yes I reviewed the patient's lab results. Labs: Lab Results 12/13/24 10:43: WBC 15.4 H D, RBC 5.43 H, Hgb 14.9, Hct 44.5, MCV 82.0, MCH 27.4, MCHC 33.5, RDW 12.5, Plt Count 338, MPV 10.9 H, Neut % (Auto) 64.8, Lymph % (Auto) 25.7, [place] % (Auto) 7.3, Eos % (Auto) 1.2, Baso % (Auto) 0.3, Neut # (Auto) 10.0 H, Lymph # (Auto) 4.0, [place] # (Auto) 1.1 H, Eos # (Auto) 0.2, Baso # (Auto) 0.1, Total Counted 100, Neutrophils % (Manual) 65, Lymphocytes % (Manual) 31, Monocytes % (Manual) 1 L, Eosinophils % (Manual) 3, Platelet Estimate Normal, RBC Morphology Normal, Sodium 137, Potassium 3.8, Chloride 100, Carbon Dioxide 30, Anion Gap 10.8, BUN 19 H, Creatinine 0.90, Estimated Creat Clear 81, Estimated GFR 63, Est GFR ( Amer) 76, Glucose 98, Calcium 9.1, Total Bilirubin 0.6, AST 32 D, ALT 19, Alkaline Phosphatase 84, Troponin I < 0.01, NT-Pro-B Natriuret Pep 114, Total Protein 7.2, Albumin 4.5, Globulin 2.7, Albumin/Globulin Ratio 1.7, HCV Ab EDMAR w/Rflx PCR Qn Reactive, HIV Ag/Ab Combo Qual Negative 12/13/24 13:37: Troponin I < 0.01 12/13/24 10:43 12/13/24 10:43 Response Orders (Tests/Meds): ED MEDICATIONS Discontinued Medications Generic Name Dose Route Start Last Admin Trade Name Freq PRN Reason Stop Dose Admin Aspirin 243 mg 12/13/24 11:05 12/13/24 11:23 Aspirin 81mg Chewable Tablet PO 12/13/24 11:06 243 mg ONCE ONE Administration ORDERS Category Date Time Status CXR --portable [XR chest portable] Stat Exams 12/13/24 11:05 Completed BNP [NT Pro Brain Natriuretic Pep.] Stat Lab 12/13/24 10:43 Completed Complete Blood Count Auto Diff Stat Lab 12/13/24 10:43 Completed Comprehensive Metabolic Panel Stat Lab 12/13/24 10:43 Completed HCV RNA PCR, Quant Stat Lab 12/13/24 10:43 Received HIV Combo Stat Lab 12/13/24 10:43 Completed Hepatitis C Ab Qual. W/ RFX Stat Lab 12/13/24 10:43 Completed Troponin I Q3H Lab 12/13/24 13:37 Completed Troponin I Stat Lab 12/13/24 10:43 Completed ECG Data Tracing #1: Attestation: I reviewed this ECG and interpreted as documented below: ECG Narrative: Normal sinus rhythm with a rate of 65. No QTc prolongation, no significant ST elevation/depression or evidence of acute ischemia. MDM Narrative Medical Decision Narrative: In summary, this is a 64-year-old female presenting with chest pain. Differential diagnosis includes but is not limited to, ACS, unstable angina, pneumonia, PE, MSK pain, among others. Patient's pain came and went last night and upon arrival to the ER this morning, her pain has already resolved. Patient took her aspirin and Plavix this morning. Patient given remaining aspirin to complete 324 mg dose. Patient's initial EKG unremarkable and does not demonstrate evidence of acute ischemia or hyperacute T waves. Patient evaluated with CBC, CMP, troponin, BNP, CXR. Labs significant for slight leukocytosis of 15.4, no anemia, no thrombocytopenia. Initial troponin <0.01. BMP nonactionable. CXR personally reviewed by me negative for acute consolidation, increased airspace opacities or pleural effusions. BNP unremarkable. Repeat troponin <0.01. On reevaluation, patient continued to be pain-free, hemodynamically stable and in no acute distress. We discussed patient likely suffering from atypical chest pain without residual evidence of ischemia. Patient has follow-up with her u.s. representative a week from tomorrow for her 6-month follow-up. Patient advised to keep this appointment. Strict return precautions given. Patient discharged in stable condition. Jennifer Joshua MD
[2024-12-13 13:08] LABS: Eosinophils % 3 % (0-3); Lymphocytes % 31 % (10-50); Monocytes % 1 % (2-9); Neutrophils % 65 % (42-76); Platelet Estimate Normal; RBC Morphology Normal; Total Cells Counted 100
[2024-12-13 14:34] LABS: Troponin I < 0.01 ng/ml (0.00-0.034)
== END 2024-12-13 15:14 | disposition home or self-care (01) ==
PROVIDERS: Emergency Provider Student in an Organized Health Care Education/Training Program; PCP Internal Medicine
DX: I20.9 Angina pectoris, unspecified (principal); R07.9 Chest pain, unspecified
CPT/HCPCS: 71045; 80053; 83880; 84484; 85007; 85025; 85027; 86803; 87389; 87522; 93005; 99284

== ENCOUNTER 2024-12-27 14:55 | Outpatient (CLI) | payer MEDICARE, OTHER, SELFPAY ==
--- NOTE | 2024-12-27 14:56 | MM_ITS ---
PROCEDURE INFORMATION: Exam: MG Bilateral Screening 3D Mammography Exam date and time: 12/27/2024 3:06 PM Age: 64 years old Clinical indication: Screening examination TECHNIQUE: Imaging protocol: Bilateral Screening tomosynthesis and 2D mammography including computer-aided detection (CAD) when performed. COMPARISON: 1. MG MM DIG MAMM DX UNILAT LT CAD 11/29/2023 1:43 PM 2. MG MM DIG SCREENING MAMM BI W/CAD 11/14/2023 1:05 PM FINDINGS: MAMMOGRAPHY: Breast composition: The breasts are extremely dense, which lowers the sensitivity of mammography. Mass: None. Architectural distortion: None. Calcifications: No suspicious calcifications. Asymmetric density: None. Skin thickening: None. Axillary adenopathy: None. IMPRESSION: No mammographic evidence of malignancy. Annual screening is recommended unless otherwise clinically indicated. ASSESSMENT: BI-RADS Category 1: Negative.
== END 2024-12-27 23:59 | disposition home or self-care (01) ==
LOC: RAD 14:56
PROVIDERS: PCP Internal Medicine; Visit Provider Internal Medicine
DX: Z12.31 Encounter for screening mammogram for malignant neoplasm of breast (principal)
CPT/HCPCS: 77063; 77067

== ENCOUNTER 2025-01-08 10:48 | Outpatient (CLI) | payer MEDICARE, OTHER, SELFPAY ==
--- NOTE | 2025-01-08 | CA_ITS ---
APPROVED REPORT Exam: Pharmacologic Technologist: Joann Palacios Ht: 5 ft 3 in Wt: 202 lbs BSA: 1.94 m2 Stress Test Details Test: Lexiscan Reason for pharmacologic stress test: physical limitation. HR Resting HR: 58 bpm Max Heart Rate (APMHR): 154.885961 bpm Max HR Achieved: 78 bpm Target HR (85% APMHR): 130.015927 bpm % of APMHR: 50.65 Recovery HR: 69 bpm BP Resting BP: 142.0/66.0 mmHg Max BP: 142.0/66.0 mmHg Recovery BP: 133.0/61.0 mmHg ECG Resting ECG: SR Stress ECG Conclusion Symptoms: Chest pain. Arrhythmias/Ectopy: --- ST-T Changes: Less than 1mm ST depression. Conclusion: EKG portion unremarkable due to Lexiscan infusion. Electronically signed by : Leeann Allen MD 01/10/2025 12:27:14
--- NOTE | 2025-01-08 11:00 | CA_ITS ---
APPROVED REPORT EXAM: Comprehensive 2D, Doppler, and color-flow Echocardiogram Production Drilling Machine Operator: Madeleine Fuchs RDCS Ht: 5 ft 3 in Wt: 202lbs BSA: 1.94 BP: 151/73 mmHg Indications: SOA,CP,HTN,PALPS,SOA,HLP,CAD 2D Dimensions Left Atrium 3.89 cm F: 2.7 - 3.8 LVOT 2.10 cm (M/F) 1.5-2.5 M-Mode Dimensions RVDd 1.52 cm (0.9-2.6) LVDd 5.47 cm (3.5-5.7) Ao Diam 2.86 cm (2.0-3.7) LVDs 3.42 cm (3.5-5.7) IVSd 0.76 cm (0.6-1.1) PWd 0.80 cm (0.6-1.1) EF (Teich) 67.00% FS 37.50% EDV (Teich) 145.60 mL TAPSE 2.55 (<1.7) ESV (Teich) 48.10 mL LV Diastology E Decel Time 200 (160-240 msec) E/A Ratio 0.7 MED E' 5.2 (>= 7 cm/sec) E'/MED E' Ratio 10.79 (<= 14) LAT E' 7.5 (>= 10 cm/sec) E/LAT E' Ratio 7.48 (<= 14) Mitral Valve MV E Max Olivier. 56.0 (40-130 cm/s) MV A Velocity 76.0 (40-130 cm/s) E/A Ratio 0.74 MV Decel. Time 200 (160-240 ms) Tricuspid Valve TR P. Velocity 194.00 cm/s RAP Estimate 10.00 mmHg RVSP 25.10 mmHg Left Ventricle The left ventricle is normal size. The left ventricular systolic function is normal. The left ventricular ejection fraction is within the normal range. There is increased LV wall thickness. The septum is asynchronous. The left ventricular diastolic function is normal. LVEF is 55%. Right Ventricle The right ventricle is normal size. The right ventricular systolic function is normal. Atria Left atrium is mildly dilated. Right atrium is borderline dilated. There is no Doppler evidence of interatrial shunt. Aortic Valve Aortic valve is mildly thickened. Trace aortic regurgitation. There is no aortic valvular stenosis. Mitral Valve The mitral valve is normal in structure. Mild mitral regurgitation. Tricuspid Valve Tricuspid valve is grossly normal in structure and function. Mild tricuspid regurgitation. RVSP is 20-25 mmHg. Pulmonic Valve The pulmonary valve is normal in structure. Mild pulmonic regurgitation. Great Vessels The aortic root is normal in size. IVC is normal in size and collapses >50% with inspiration. Pericardium There is no pericardial effusion. Other Information Study Quality: Fair Conclusion Normal biventricular systolic function. Asynchronous septum. Biatrial dilation. Mild TR, mild MR, mild PI. Electronically signed by : Leeann Allen MD 01/20/2025 22:12:33
--- NOTE | 2025-01-08 11:27 | NM_ITS ---
APPROVED REPORT Exam: Nuclear Stress Test Indication: cad, htn, hyperlipidemia, fm hx, c.p., sob, palpitations Patient Location: Outpatient Stress Tech: Joann Peraza ND Tech:Maddie Silver, ARRT, RT (R)(N) Ht: 5 ft 3 in Wt: 201 lbs Bra Size: c HR: 59 bpm BP: 142/66 mmHg BSA: 1.94 m2 TID: 1.17 BMI: 35.6 History: cad, htn, hyperlipidemia, fm hx, c.p., sob, palpitations Procedure: Patient received 0.4 mg of intravenous Lexiscan, resting heart rate 59 bpm, resting blood pressure 142/66 mmHg, with Lexiscan maximum heart rate achieved was 83 bpm which is % of the maximum predicted heart rate and blood pressure was 134/63 mmHg. With Lexiscan, patient denied any complaint of chest pain. Cardiac Stress and Resting SPECT Images: Cardiac Stress and Resting SPECT images were obtained using technetium 99m Myoview 31.8 mCi stress and 10.94 mCi at rest. Resting and stress imaging in supine and prone positions demonstrate no evidence of fixed or reversible perfusion defects. Gated imaging demonstrates normal global and regional LV systolic function. LVEF is calculated at 55%. Conclusion: No evidence of fixed or reversible perfusion defects. Gated imaging demonstrates normal global and regional LV systolic function. LVEF is calculated at 55%. Electronically signed by : Leeann Allen MD 01/10/2025 00:54:42
[2025-01-08] MEDS: ISOTOPE MYOVIEW (PER STUDY) 1 DOSE IV (13:53)
[2025-01-08] MEDS: REGADENOSON 0.4MG/5ML SYRINGE 0.4 MG IV (13:53)
[2025-01-08] MEDS: SODIUM CHLORIDE 0.9% 10ML SYR (RAD ONLY) 10 ML IV ×2 (13:53)
== END 2025-01-08 23:59 | disposition home or self-care (01) ==
LOC: RT 10:49
PROVIDERS: PCP Internal Medicine; Visit Provider Physician Assistant
DX: I51.7 Cardiomegaly (principal); I34.0 Nonrheumatic mitral (valve) insufficiency; I36.1 Nonrheumatic tricuspid (valve) insufficiency; I37.1 Nonrheumatic pulmonary valve insufficiency; I20.9 Angina pectoris, unspecified
CPT/HCPCS: 78452; 93017; 93018; 93306; A9502; J2785

== ENCOUNTER 2025-01-30 08:19 | Outpatient (CLI) | payer MEDICARE, OTHER, SELFPAY ==
--- NOTE | 2025-01-30 08:30 | US_ITS ---
PROCEDURE INFORMATION: Exam: US Left Breast, Complete Exam date and time: 01/30/2025 8:23 AM Age: 64 years old Clinical indication: 6 month US of left breast TECHNIQUE: Imaging protocol: Complete ultrasound of all four quadrants of the left breast and the retroareolar regions, including ultrasound of the axilla when performed. COMPARISON: US BREAST LT COMPLETE 11/29/2023 2:11 PM FINDINGS: ULTRASOUND: Breast ultrasound findings: Sonographic images of the left breast including the retroareolar region, all 4 quadrants and the axilla demonstrates an ovoid hypoechoic mass in the 1 o'clock axis 3 cm from the nipple measuring 0.7 x 0.7 x 0.3 cm, likely reflecting a debris-filled cyst. What was previously labeled as 2 o'clock axis 5 cm from the nipple is not seen on the current examination. Benign 0.6 cm cyst in the left 4 o'clock axis. 0.5 cm debris-filled cyst in the left 5 o'clock axis 2 cm from the nipple. Superficial 0.5 cm cyst in the left 6 o'clock axis 1 cm from the nipple. Incidental 0.6 cm lipoma in the 7 o'clock axis 2 cm from the nipple. Cursors were placed over normal fibrous tissue in the left 11 o'clock axis 6 cm from the nipple. No architectural distortion or acoustical shadowing. No skin thickening or axillary adenopathy. IMPRESSION: Probably benign debris-filled cyst in the left 1 o'clock axis 3 cm from the nipple. A six-month follow-up targeted left breast ultrasound is recommended to ensure stability of the tiny ASSESSMENT: BI-RADS Category 3: Probably benign.
--- OUTSIDE RECORDS SUMMARY | 2025-01-31 21:47 | XMS_ITS ---
Author Organization Unknown TREATMENT PLAN [facility] Start Date Provider Encounter for Check-up [id number] [facility]
--- OUTSIDE RECORDS SUMMARY | 2025-01-31 21:47 | XMS_ITS | Data Portability ---
Author Organization [facility] & [place] [facility] ADMIN Address [address] [place] [id number] Assessment No assessment recorded. Plan of Treatment Reminders Order Date Submit Date Provider Last Modified By Organization Details Last Modified Time Details Appointments None record ed. Lab None record ed. Referral None record ed. Procedures None record ed. Surgeries None record ed. Imaging None record ed. Medication Orders None record ed. Patient TargetsNo targets recorded. Patient InstructionsNo instructions recorded. Reason for Referral None Reported. Procedures Surgical History Date Name Laterality Status Provider Name and Address Organization Details Recorded Time EMG/ Nerve Conduction Study completed Jaime Rod M.D [address] [place] [address], [address], [place], [address], [facility] & [place] 02/28/2024 20:28:22 Imaging Results None recorded. Procedure Notes None recorded. Medical Equipment None Reported. Medications Name Sig Start Date Stop Date Status Note LastModified by Organization Details LastModified Time venlafaxine ER 37.5 mg capsule,exte nded release 24 hr TAKE 1 CAPSULE BY MOUTH DAILY active Not Available Not Available Not Available azithromycin 250 mg tablet active Not Available Not Available Not Available hydrocortiso ne 1 % topical ointment APPLY TOPICALLY TO THE AFFECTED AREA TWICE DAILY NEEDED FOR ITCHING active Not Available Not Available No t Available glipizide ER 5 mg tablet, extended release 24 hr TAKE 1 TABLET BY MOUTH DAILY active Not Available Not Available Not Available amlodipine 2.5 mg tablet TAKE 1 TABLET BY MOUTH DAILY FOR BLOOD PRESSURE active Not Available Not Available No t Available clopidogrel 75 mg tablet TAKE 1 TABLET BY MOUTH DAILY FOR BLOOD THINNER active Not Available Not Available No t Available bisoprolol fumarate 5 mg tablet TAKE 1 TABLET BY MOUTH DAILY FOR HEART active Not Available Not Available No t Available amoxicillin 875 mg tablet TAKE 1 TABLET BY MOUTH TWICE DAILY FOR 10 DAYS active Not Available Not Available No t Available OneTouch Ultra Test strips USE DIRECTED THREE TIMES DAILY active Not Available Not Available No t Available pantoprazole 40 mg tablet,delay ed release TAKE 1 TABLET BY MOUTH DAILY FOR GERD active Not Available Not Available No t Available triamterene 37.5 mg-hydrochlo rothiazide 25 mg tablet TAKE 1 TABLET BY MOUTH DAILY FOR BLOOD PRESSURE active Not Available Not Available No t Available furosemide 20 mg tablet TAKE 1 TABLET BY MOUTH DAILY active Not Available Not Available Not Available metformin ER 500 mg tablet,exten ded release 24 hr TAKE 1 TABLET BY MOUTH TWICE DAILY active Not Available Not Available No t Available lisinopril 2.5 mg tablet TAKE 1 TABLET BY MOUTH DAILY active Not Available Not Available Not Available Repatha SureClick 140 mg/mL subcutaneous pen injector ADMINISTER 1 ML UNDER THE SKIN EVERY 2 WEEKS DIRECTED FOR CHOLESTEROL active Not Available Not Available Not Available Emverm 100 mg chewable tablet TAKE AND CHEW ONE TABLET BY MOUTH TWICE DAILY FOR 3 DAYS active Not Available Not Available No t Available Nexlizet 180 mg-10 mg tablet TAKE 1 TABLET BY MOUTH DAILY active Not Available Not Available Not Available Clenpiq 10 mg-3.5 gram-12 gram/175 mL oral solution active Not Available Not Available Not Available Vitals Date Recorded Body height Body mass index (BMI) Body weight Body temperature Oxygen saturation Oxygen saturation in Arterial blood by Pulse oximetry Heart rate Provider Name and Address Organization Details Last Updated DateTime 4 160.02 cm 38.1 kg/m2 29805.3 6 g 97.4 [degF] 96 % 96 % 75 /min Ida Cao [place] - [facility] - [place] & [place] 4 14:44:15 Social History None recorded. Functional Status None recorded. Mental Status None recorded. Family History Nothing Reported. Medical History No medical history recorded. Gynecological HistoryNo gynecological history recorded. Obstetrics History GPAL:G 0 P 0 0 0 0 Past Encounters Encounter ID Performer Location Encounter Start Date Encounter Closed Date Diagnosis/Indication Diagnosis SNOMED-CT Code Diagnosis ICD10 Code Diagnosis Note [id number] Jaime Rod M.D [facility] Neurology [address],[facility] [address] [facility] [place] [id number] 02/13/2024 13:52:40 02/13/2024 15:29:26 Lumbosacral radiculitis 48859957 M54.17 Paresthesia 46908866 R20 .2 Health Concerns Section Related Observation LastModified by Organization Detai ls LastModified Time None Recorded Concern Status LastModified by Organization Details LastModified Time None Recorded Advance Directives Directive None Recorded Payers Encounter Date Sequence Insurance Name Policy Number Policy Li Covered Member ID Li Member ID Guarantor Name 02/13/2024 1 [place] Alfreda Lai [id number] 02/13/2024 2 [facility] Alfreda Lai [id number] OBGyn Episode No OBEpisode recorded.
== END 2025-01-30 23:59 | disposition home or self-care (01) ==
LOC: RAD 08:20
PROVIDERS: PCP Nurse Practitioner Family; Visit Provider Obstetrics & Gynecology
DX: N64.59 Other signs and symptoms in breast (principal); N63.21 Unspecified lump in the left breast, upper outer quadrant
CPT/HCPCS: 76641

== ENCOUNTER 2025-04-29 16:01 | Outpatient (CLI) | payer MEDICARE, OTHER, SELFPAY ==
[2025-04-29 19:31] LABS: Hematocrit 43.3 % (37.0-47.0); Hemoglobin 14.5 g/dL (12.2-16.2); Immature Granulocytes % 0.2 %; Mean Corpuscular HGB Conc 33.5 g/dL (31.8-35.4); Mean Corpuscular Hemoglobin 27.6 pg (27.0-31.2); Mean Corpuscular Volume 82.3 fl (81-99); Nucleated Red Blood Cells % 0 %; Platelet Count 304 K/mm3 (142-424); Red Blood Count 5.26 M/mm3 (4.20-5.40); Red Cell Distribution Width-SD 37.7 fL; White Blood Count 10.9 K/mm3 (4.8-10.8)
[2025-04-29 20:14] LABS: Alanine Aminotransferase 14 U/L (12-78); Albumin Level 4.9 g/dl (3.5-5.0); Albumin/Globulin Ratio 1.8 (1.1-1.8); Alkaline Phosphatase 90 U/L (38-126); Anion Gap 18.5 mEq/L (5-15); Aspartate Amino Transferase 28 U/L (14-36); Bilirubin,Total 0.6 mg/dl (0.2-1.3); Blood Urea Nitrogen 15 mg/dl (7-17); Calcium 9.0 mg/dl (8.4-10.2); Carbon Dioxide 27 mmol/L (22.0-30.0); Chloride 97 mmol/L (98-107); Cholesterol 188 mg/dl (140-200); Creatinine,Serum 0.90 mg/dl (0.52-1.04); Estimated Glomerular Filt Rate 63 ml/min (>60); GFR (African American) 76 ML/MIN (>60); Globulin 2.7 g/dL (1.3-3.2); Glucose 88 mg/dl (74-100); HDL Cholesterol 48 mg/dl (40-60); Potassium 4.5 mmoL/L (3.5-5.1); Sodium 138 mmol/L (136-145); Total Protein,Serum 7.6 g/dl (6.3-8.2); Triglycerides 213 mg/dl (30-150)
[2025-04-29 20:30] LABS: C-Reactive Protein 6.7 mg/L (0-4)
[2025-04-29 21:34] LABS: Hemoglobin A1C 7.8 % (4.0-6.0)
--- OUTSIDE RECORDS SUMMARY | 2025-04-30 07:33 | XMS_ITS | Clinical Summary ---
Author Organization [employer] ([place], [place], [place], [place]) Address [address] [place] [address] Care Team Providers Care Agronomy Instructor Name Role Phone Unavailable Primary Care Provider Unavailabl e Allergies Active Allergy Reactions Criticality Noted Date Comments Qndxcma-Ujn-Ino Reductase Inhibitors 11/15/2022 Patient States Statins Cause Muscle Pain Medications amLODIPine (NORVASC) 2.5 MG tablet Take 2.5 mg by mouth daily. Active bisoprolol (ZEBETA) 5 MG tablet Take 5 mg by mouth daily. Active clopidogreL (PLAVIX) 75 mg tablet Take 75 mg by mouth daily. Active pantoprazole (PROTONIX) 40 MG tablet Take 40 mg by mouth daily. Active triamterene-hyd roCHLOROthiazid e (DYAZIDE) 37.5-25 mg per capsule Take 1 capsule by mouth every morning. Active venlafaxine (EFFEXOR-XR) 37.5 MG 24 hr capsule Take 37.5 mg by mouth daily. Active cholecalciferol (VITAMIN D3) 125 mcg (5,000 unit) tablet Take 5,000 Units by mouth daily. Active zinc gluconate 50 mg tablet Take 50 mg by mouth daily. Active Active Problems Problem Noted Date Diagnosed Date CAD (coronary artery disease) 11/15/2022 Overview (11/15/2022): Stents x2 Stented coronary artery 11/15/2022 Overview (11/15/2022): x2 Dysrhythmias 11/15/2022 Overview (11/15/2022): Palpitations occasionally Obesity 11/15/2022 Social History Tobacco Use Types Packs/Day Years Used Date Smoking Tobacco: Never Smokeless Tobacco: Never Alcohol Use Standard Drinks/Week Comments Never 0 (1 standard drink = 0.6 oz pur e alcohol) Food Insecurity Answer Date Recorded Food run out past 12 months Not on file 10/25 Food did not last past 12 months Not on file 11/12/2023 Employment Answer Date Recorded Help finding and keeping a job Not on file 0 11/12/2023 Family and Community Support Answer Willi e Recorded Help with Day to Day Activities Not on file 11/12/2023 Feeling Lonely or Isolated Not on file 11/12 Educational Attainment Answer Date Javid rded Speak language other than Albanian at home Not on file 11/12/2023 Want help with school or training Not on file 11/12/2023 Substance Use Answer Date Recorded Used prescription meds for non-medical reasons N ot on file 11/12/2023 Used illegal drugs past 12 months Not on file 11/12/2023 Comments No Sex and Gender Information Value Date Recorded Sex Assigned at Not on file 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 Gender Identity Not on file Sexual Orientation Not on file Last Filed Vital Signs Vital Sign Reading Time Taken Comments Blood Pressure 126/65 11/15/2022 12:35 PM EST Pulse 97 11/15/2022 12:35 PM EST Temperature 36.6 C (97.8 F) 11/15/2022 12:05 PM EST Respiratory Rate 16 11/15/2022 12:3 5 PM EST Oxygen Saturation 88% 11/15/2022 12: 35 PM EST Inhaled Oxygen Concentration - - Weight 128.1 kg (282 lb 6.4 oz) 11/15/2022 8:00 AM EST Height 160 cm (5' 3 ) 11/15/2022 8:00 AM EST Body Mass Index 50.02 11/15/2022 8:00 AM EST Plan of Treatment Health Maintenance Due Date Last Done Comments Medicare Initial AWV G0438 CT Colonography 1958 Colonoscopy 1958 Colorectal Cancer Screening 1958 DXA SCAN 1958 FOBT/FIT 1958 Fit-DNA (Cologuard) 1958 Sigmoidoscopy 1958 Depression Screening (12+) 1970 Hepatitis C Screening 1976 DTAP/TDAP/TD VACCINES (1 - Tdap) 1977 Pneumococcal 50+ years (1 of 2 - PCV) 1977 Breast Cancer Screening 1998 Shingles Vaccine (Zoster) (1 of 2) 2008 Respiratory Syncytial Virus (RSV) Adult or (1 - Risk 60-74 years 1-dose series) 2018 Tobacco Cessation Counseling and Screening (12+) 11/1511/15/2022 COVID-19 VACCINE (1 - 2023- season) 2024 Falls Risk Screening 10/24/2024 Influenza Vaccine (#1) 2025 Medical Devices Implanted Type Area Arc Trimmer Device Identifier Shelf Expiration Date Model / Serial / Lot Coronary Stints Right Knee Replacement Insurance AETNA [facility] MEDICARE PART A B Advance Directives For more information, please contact: [phone] * Full Code (Latest Code Status on File) Date Activated Date Inactivated Comments 11/15/2022 7:15 AM 11/15/2022 2:18 PM
--- OUTSIDE RECORDS SUMMARY | 2025-04-30 07:33 | XMS_ITS | Referral Summary ---
Author Organization [employer] ([place], [place], [place], [place]) Address [address] [place] [address] Care Team Providers Care Vp Ancillary Name Role Phone Unavailable Primary Care Provider Unavailabl e Allergies Active Allergy Reactions Criticality Noted Date Comments Sidjqof-Uja-Aoo Reductase Inhibitors 11/15/2022 Patient States Statins Cause [...] Date Javid rded Speak language other than Thai at home Not on file 11/12/2023 Want help with school or training Not on file 11/12/2023 Substance Use Answer Date Recorded Used prescription meds for non-medical reasons N ot on file 11/12/2023 Used illegal drugs past 12 months Not on file 11/12/2023 Comments No Sex and Gender Information Value Date Recorded Sex Assigned at Not on file 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
== END 2025-04-29 23:59 | disposition home or self-care (01) ==
LOC: LAB.DROPOF 04-30 07:31
PROVIDERS: PCP Family Medicine; Visit Provider Family Medicine
DX: I10 Essential (primary) hypertension (principal); R19.7 Diarrhea, unspecified; R73.09 Other abnormal glucose
CPT/HCPCS: 80053; 80061; 83036; 85025; 86140

== ENCOUNTER 2025-05-02 08:41 | Outpatient (CLI) | payer MEDICARE, OTHER, SELFPAY ==
[2025-05-02 08:45] LABS: Adenovirus F 40/41, stool Not Detected (NotDetected); Clostridium Difficile A/B, PCR Not Detected (NotDetected); Cyclospora Cayetanesis Not Detected (NotDetected); Plesimonas Shigalloides, PCR Not Detected (NotDetected); Salmonella, PCR Not Detected (NotDetected); Shiga-like toxin E coli Not Detected (NotDetected); Shigella Enterovasive E coli Not Detected (NotDetected); Vibrio, PCR Not Detected (NotDetected); Yersinia Entercolitica, PCR Not Detected (NotDetected)
--- OUTSIDE RECORDS SUMMARY | 2025-05-02 08:45 | XMS_ITS | Clinical Summary ---
Author Organization [employer] ([place], [place], [place], [place]) Address [address] [place] [address] Care Team Providers Care Beef Splitter Name Role Phone Unavailable Primary Care Provider Unavailabl e Allergies Active Allergy Reactions Criticality Noted Date Comments Kkhccyn-Iuv-Mlv Reductase Inhibitors 11/15/2022 Patient States Statins Cause [...] Date Javid rded Speak language other than Russian at home Not on file 11/12/2023 Want help with school or training Not on file 11/12/2023 Substance Use Answer Date Recorded Used prescription meds for non-medical reasons N ot on file 11/12/2023 Used illegal drugs past 12 months Not on file 11/12/2023 Comments No Sex and Gender Information Value Date Recorded Sex Assigned at Not on file 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 MEDICARE PART A B Advance Directives For more information, please contact: [phone] * Full Code (Latest Code Status on File) Date Activated Date Inactivated Comments 11/15/2022 7:15 AM 11/15/2022 2:18 PM
--- OUTSIDE RECORDS SUMMARY | 2025-05-02 08:45 | XMS_ITS | Referral Summary ---
Author Organization [employer] ([place], [place], [place], [place]) Address [address] [place] [address] Care Team Providers Care Casing Running Machine Tender Name Role Phone Unavailable Primary Care Provider Unavailabl e Allergies Active Allergy Reactions Criticality Noted Date Comments Dnfwsxo-Lmc-Bjf Reductase Inhibitors 11/15/2022 Patient States Statins Cause [...] Date Javid rded Speak language other than Georgian at home Not on file 11/12/2023 Want help with school or training Not on file 11/12/2023 Substance Use Answer Date Recorded Used prescription meds for non-medical reasons N ot on file 11/12/2023 Used illegal drugs past 12 months Not on file 11/12/2023 Comments No Sex and Gender Information Value Date Recorded Sex Assigned at Not on file 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
--- OUTSIDE RECORDS SUMMARY | 2025-05-02 08:45 | XMS_ITS | Data Portability ---
Author Organization [facility] ADMIN Address [address] [place] [phone] Assessment No assessment recorded. Plan of Treatment [...] Nerve Conduction Study completed Jaime Rod M.D [address] [place] [address], [address], [place], [address], [facility] & [place] 02/28/2024 20:28:22 Imaging Results None recorded. Procedure [...] Updated DateTime 4 160.02 cm 38.1 kg/m2 16622.3 6 g 97.4 [degF] 96 % 96 % 75 /min Ida Cao [place] - [facility] & [place] 4 14:44:15 Social History None recorded. Functional Status None recorded. Mental Status None recorded. Family History Nothing Reported. Medical History No medical history recorded. Gynecological HistoryNo gynecological history recorded. Obstetrics History GPAL:G 0 P 0 0 0 0 Past Encounters Encounter ID Performer Location Encounter Start Date Encounter Closed Date Diagnosis/Indication Diagnosis SNOMED-CT Code Diagnosis ICD10 Code Diagnosis Note [id number] Jaime Rod M.D [facility] Neurology [address],[facility] [address] [place] [address] 02/13/2024 13:52:40 02/13/2024 15:29:26 Lumbosacral radiculitis 88522242 M54.17 Paresthesia 72153048 R20 .2 Health Concerns Section Related Observation LastModified by Organization Detai ls LastModified Time None Recorded Concern Status LastModified by Organization Details LastModified Time None Recorded Advance Directives Directive None Recorded Payers Insurance Date Sequence Insurance Name Policy Number Policy Li Covered Member ID Li Member ID Guarantor Name 05/12/2024 2 AETNA [facility] (MEDICAID [place]) Alfreda Lai [id number] 05/12/2024 1 [place] Alfreda Lai [id number] OBGyn Episode No OBEpisode recorded.
== END 2025-05-02 23:59 | disposition home or self-care (01) ==
LOC: LAB 08:42
PROVIDERS: PCP Family Medicine; Visit Provider Family Medicine
DX: D81.89 Other combined immunodeficiencies (principal)
CPT/HCPCS: 87507

== ENCOUNTER 2025-05-07 02:45 | Emergency (ER) | payer MEDICARE, OTHER, SELFPAY ==
[2025-05-07] VITALS (9 sets, daily range): BP systolic 91–148; BP diastolic 49–76; PULSE 62–89; RESP 14; TEMP 37.1; O2SAT 91–96; BMI 37.5
--- OUTSIDE RECORDS SUMMARY | 2025-05-07 02:56 | XMS_ITS | Clinical Summary ---
Author Organization [employer] ([place], [place], [place], [place]) Address [address] [place] [address] Care Team Providers Care Log Cutter Name Role Phone Unavailable Primary Care Provider Unavailabl e Allergies Active Allergy Reactions Criticality Noted Date Comments Hbboqza-Nvg-Lrk Reductase Inhibitors 11/15/2022 Patient States Statins Cause [...] Date Javid rded Speak language other than [place] at home Not on file 11/12/2023 Want help with school or training Not on file 11/12/2023 Substance Use Answer Date Recorded Used prescription meds for non-medical reasons N ot on file 11/12/2023 Used illegal drugs past 12 months Not on file 11/12/2023 Comments No Sex and Gender Information Value Date Recorded Sex Assigned at Not on file 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
--- OUTSIDE RECORDS SUMMARY | 2025-05-07 02:57 | XMS_ITS | Data Portability ---
Author Organization [facility] ADMIN Address [address] [place] [phone] Assessment No assessment recorded. Plan of Treatment [...] Nerve Conduction Study completed Jaime Rod M.D [address] [place] [address], [address], [place], [address], [facility] & [place] 02/28/2024 20:28:22 Imaging Results None recorded. Procedure [...] Updated DateTime 4 160.02 cm 38.1 kg/m2 06669.3 6 g 97.4 [degF] 96 % 96 % 75 /min Ida Cao [place] - [facility] & [place] 4 14:44:15 Social History None recorded. Functional Status None recorded. Mental Status None recorded. Family History Nothing Reported. Medical History No medical history recorded. Gynecological HistoryNo gynecological history recorded. Obstetrics History GPAL:G 0 P 0 0 0 0 Past Encounters Encounter ID Performer Location Encounter Start Date Encounter Closed Date Diagnosis/Indication Diagnosis SNOMED-CT Code Diagnosis ICD10 Code Diagnosis Note [id number] Jaime Rod M.D [facility] Neurology [address],[facility] [address] [place] [address] 02/13/2024 13:52:40 02/13/2024 15:29:26 Lumbosacral radiculitis 62704693 M54.17 Paresthesia 53413491 R20 .2 Health Concerns Section Related Observation LastModified by Organization Detai ls LastModified Time None Recorded Concern Status LastModified by Organization Details LastModified Time None Recorded Advance Directives Directive None Recorded Payers Insurance Date Sequence Insurance Name Policy Number Policy Li Covered Member ID Li Member ID Guarantor Name 05/12/2024 2 AETNA [facility] (MEDICAID [place]) Alfreda Lai [id number] 05/12/2024 1 [place] Alfreda Lai [id number] OBGyn Episode No OBEpisode recorded.
--- OUTSIDE RECORDS SUMMARY | 2025-05-07 02:57 | XMS_ITS | Referral Summary ---
Author Organization [employer] ([place], [place], [place], [place] Address [address] [place] [address] Care Team Providers Care Rocket Scientist Name Role Phone Unavailable Primary Care Provider Unavailabl e Allergies Active Allergy Reactions Criticality Noted Date Comments Qwwcoxk-Muw-Wzg Reductase Inhibitors 11/15/2022 Patient States Statins Cause [...] Date Javid rded Speak language other than [place] at home Not on file 11/12/2023 Want help with school or training Not on file 11/12/2023 Substance Use Answer Date Recorded Used prescription meds for non-medical reasons N ot on file 11/12/2023 Used illegal drugs past 12 months Not on file 11/12/2023 Comments No Sex and Gender Information Value Date Recorded Sex Assigned at Not on file Legal Sex Female 1:33 PM [employer] Gender Identity Not on file Sexual Orientation [...] on file Medical Devices Implanted Type Area Architectural Design Professor Device Identifier Shelf Expiration Date Model / Serial / Lot Coronary Stints Right Knee Replacement Insurance [employer] [place] MEDICARE PART A B Advance Directives For more information, please contact: [phone] * Full Code (Latest Code Status on File) Date Activated Date Inactivated Comments 11/15/2022 7:15 AM 11/15/2022 2:18 PM
--- NOTE | 2025-05-07 03:01 | CT_ITS ---
PROCEDURE INFORMATION: Exam: CT Head Without Contrast Exam date and time: 05/07/2025 3:44 AM Age: 64 years old Clinical indication: Pain; Headache; Additional info: [place] TECHNIQUE: Imaging protocol: Computed tomography of the head without contrast. Radiation optimization: All CT scans at this facility use at least one of these dose optimization techniques: automated exposure control; mA and/or kV adjustment per patient size (includes targeted exams where dose is matched to clinical indication); or iterative reconstruction. COMPARISON: CT HEAD/BRAIN WO CON 01/10/2022 8:22 PM FINDINGS: Brain: Normal. No hemorrhage. Unremarkable white matter. No mass effect. Cerebral ventricles: No ventriculomegaly. Paranasal sinuses: Visualized sinuses are unremarkable. No fluid levels. Mastoid air cells: Visualized mastoid air cells are well aerated. Orbital cavities: The patient has had right lens replacement surgery. Bones: Unremarkable. No acute fracture. Soft tissues: Unremarkable. Vasculature: Carotid and vertebral artery atherosclerotic calcification. IMPRESSION: No acute intracranial abnormality.
--- NOTE | 2025-05-07 03:01 | CT_ITS ---
PROCEDURE INFORMATION: Exam: CT Abdomen And Pelvis With Contrast Exam date and time: 05/07/2025 3:47 AM Age: 64 years old Clinical indication: Vomiting; Additional info: Chronic diarrhea, now vomiting TECHNIQUE: Imaging protocol: Computed tomography of the abdomen and pelvis with contrast. 3D rendering (Not supervised by radiologist): MIP and/or 3D reconstructed images were created by the technologist. Radiation optimization: All CT scans at this facility use at least one of these dose optimization techniques: automated exposure control; mA and/or kV adjustment per patient size (includes targeted exams where dose is matched to clinical indication); or iterative reconstruction. Contrast material: ISOVUE; Contrast volume: 70 ml; Contrast route: IV; COMPARISON: CR XR PELVIS 1-2V 11/27/2019 12:17 PM FINDINGS: Lungs: Visualized lung bases are clear. Diaphragm: There is a moderate hiatal hernia. Liver: There is diffuse fatty infiltration of the liver. Gallbladder and biliary ducts: The gallbladder has been resected. No biliary duct dilatation. Pancreas: Normal. No ductal dilation. Spleen: Benign splenic granuloma(s). The spleen is otherwise unremarkable. Adrenal glands: Normal. No mass. Kidneys and ureters: Nonobstructive left sided kidney stone measures 4 mm. No hydroureteronephrosis or obstructing calculus identified. Right kidney unremarkable Stomach and bowel: No bowel wall thickening or obstruction. Appendix: No evidence of appendicitis. Intraperitoneal space: Unremarkable. No free air. No significant fluid collection. Vasculature: There is moderate atherosclerosis of the aorta without aneurysm.The visualized aortic branch vessels are patent. Lymph nodes: Unremarkable. No enlarged lymph nodes. Urinary bladder: The bladder is collapsed limiting assessment. Reproductive: Unremarkable as visualized. Bones/joints: Unremarkable. No acute fracture. Soft tissues: Unremarkable. IMPRESSION: 1. No acute process identified. 2. Fatty liver. 3. Cholecystectomy. 4. 4 mm nonobstructing stone left kidney. 5. Moderate hiatal hernia without obstruction.
[2025-05-07 03:09] LABS: Adenovirus,PCR Not Detected (NotDetected); Chlamydophila Pneumoniae, PCR Not Detected (NotDetected); Coronavirus 19, PCR Not Detected (NotDetected); Coronovirus HKU1,PCR Not Detected (NotDetected); Influenza A, PCR Not Detected (NotDetected); Influenza AH1, 2009 Not Detected (NotDetected); Influenza AH1, PCR Not Detected (NotDetected); Influenza AH3,PCR Not Detected (NotDetected); Influenza B, PCR Not Detected (NotDetected); Mycoplasma Pneumoniae, PCR Not Detected (NotDetected); Parainfluenza 1, PCR Not Detected (NotDetected); Parainfluenza 2, PCR Not Detected (NotDetected); Parainfluenza 3, PCR Not Detected (NotDetected); Parainfluenza 4, PCR Not Detected (NotDetected)
[2025-05-07 03:09] LABS: Microscopic, Urine URINE MICROSCOPIC (MICROSCOPIC)
[2025-05-07 03:10] LABS: Hematocrit 43.2 % (37.0-47.0); Hemoglobin 14.5 g/dL (12.2-16.2); Immature Granulocytes % 0.3 %; Mean Corpuscular HGB Conc 33.6 g/dL (31.8-35.4); Mean Corpuscular Hemoglobin 27.7 pg (27.0-31.2); Mean Corpuscular Volume 82.6 fl (81-99); Nucleated Red Blood Cells % 0 %; Platelet Count 291 K/mm3 (142-424); Red Blood Count 5.23 M/mm3 (4.20-5.40); Red Cell Distribution Width-SD 37.3 fL; White Blood Count 12.5 K/mm3 (4.8-10.8)
[2025-05-07 03:11] LABS: Color,Urine YELLOW (Yellow); Glucose,Urine (UA) Negative (Negative); Ketones,Urine TRACE (Negative); Leukocyte Esterase,Urine TRACE (Negative); PH,Urine 6.0 (5.0-8.5); Protein,Urine 2+ (Negative); Specific Gravity, Urine >= 1.030 (1.005-1.030); Urobilinogen,Urine 0.2 EU/dl (0.2)
--- NOTE | 2025-05-07 03:11 | CT_ITS ---
PROCEDURE INFORMATION: Exam: CTA Chest With Contrast Exam date and time: 05/07/2025 3:47 AM Age: 64 years old Clinical indication: Pain; Chest pressure; Additional info: Band like cp, dizziness, emesis TECHNIQUE: Imaging protocol: Computed tomographic angiography of the chest with contrast. Exam focused on the arteries. 3D rendering (Not supervised by radiologist): MIP and/or 3D reconstructed images were created by the technologist. Radiation optimization: All CT scans at this facility use at least one of these dose optimization techniques: automated exposure control; mA and/or kV adjustment per patient size (includes targeted exams where dose is matched to clinical indication); or iterative reconstruction. Contrast material: ISOVUE; Contrast volume: 70 ml; Contrast route: INTRAVENOUS (IV); COMPARISON: CR XR CHEST PORTABLE 12/13/2024 11:12 AM FINDINGS: Limitations: There is motion artifact due to patient inability to cooperate which limits assessment. Pulmonary arteries: Suboptimal differential enhancement of the pulmonary arteries related to timing of IV contrast injection limits assessment. Pulmonary arteries are normal in caliber with no gross evidence of central PE. Aorta: Unremarkable. No aortic aneurysm. No aortic dissection. Lungs: Unremarkable. No consolidation. No masses. Pleural spaces: Unremarkable. No pneumothorax. No pleural effusion. Heart: Unremarkable. No cardiomegaly. No pericardial effusion. Lymph nodes: Unremarkable. No enlarged lymph nodes. Diaphragm: There is a moderate hiatal hernia. Liver: There is diffuse fatty infiltration of the liver. Bones/joints: Unremarkable. No acute fracture. Soft tissues: Unremarkable. IMPRESSION: 1. Limited exam for reasons described. 2. No aneurysm, dissection or gross evidence of central PE. 3. No acute process identified. 4. Recommend correlation with the accompanying CT abdomen pelvis report for further details.
--- NOTE | 2025-05-07 03:11 | ED_ITS ---
Discharge Plan Disposition Patient Disposition: Home, Self-Care Condition: Good Prescriptions Prescriptions: New ondansetron 4 mg tablet,disintegrating 4 mg PO Q6H PRN (Reason: nausea and vomiting) Qty: 10 0RF No Action cholecalciferol (vitamin D3) 25 mcg (1,000 unit) capsule 25 mcg PO DAILY nitroglycerin 0.4 mg tablet, sublingual 0.4 mg sublingual Q5M PRN (Reason: chest pain) Qty: 25 0RF Rx Instructions: do not exceed 3 doses per episode amlodipine 2.5 mg tablet 2.5 mg PO DAILY Qty: 90 3RF (DME) blood-glucose meter [Blood Glucose Monitoring] Kit See Rx Instructions .Route Qty: 1 0RF Rx Instructions: As directed, check BG TID (DME) blood sugar diagnostic, disc Strip See Rx Instructions .Route Qty: 30 6RF Rx Instructions: As directed, check BG TID (DME) lancets 30 gauge misc See Rx Instructions .Route Qty: 100 3RF Rx Instructions: As directed, check BG TID Repatha SureClick 140 mg/mL pen injector 140 mg SQ .twice monthly Qty: 1 3RF Rx Instructions: ADMINISTER 1 ML UNDER THE SKIN EVERY 2 WEEKS DIRECTED FOR CHOLESTEROL pantoprazole 40 mg tablet,delayed release (DR/EC) 40 mg PO DAILY Qty: 90 3RF bisoprolol fumarate 5 mg tablet 5 mg PO DAILY Qty: 90 3RF triamterene-hydrochlorothiazid 37.5-25 mg tablet 1 tab PO DAILY Qty: 90 3RF clopidogrel 75 mg tablet 75 mg PO DAILY Qty: 90 3RF Referrals Follow up/Referrals: Ahmet Ji MD [Primary Care Provider, Family Practice] - See instructions Activity Restrictions/Add. Instructions Additional Instructions/Restrictions: You were evaluated in the ER and are believed to be appropriate for discharge at this time. I suspect that your symptoms were largely related to a vaccine reaction given the appearance of the site of your vaccine and your other symptoms altogether. Continue monitoring your vaccine site closely as discussed. If you develop any red streaking, worsening pain, any abnormal discharge, or if you have fevers again, I recommend you return to the ER. You can take Tylenol and ibuprofen if needed for generalized bodyaches. Do not exceed the recommended dose on the bottle, drink water and eat a small snack each of you take these medications to avoid side effects. Take the prescribed ondansetron (Zofran) if needed for nausea. Make an appointment with your primary care doctor to be reevaluated in 1 to 2 days and make sure that everything is improving and that your symptoms have not come back. Also discussed with him the findings of stone inside your kidney and hiatal hernia. Return to the ER with any new, worsening, or otherwise concerning symptoms as discussed. Clinical Impressions Clinical Impression: Vaccine reaction, Headache, Nausea, vomiting, and diarrhea, Hernia, hiatal, Left renal stone Print Language Print Language: [place] Discharge ED Provider: Leticia Lemus General Adult HPI General Chief complaint: Headache Stated complaint: dizziness, hip and back pain, v/d Time Seen by Provider: 05/07/25 02:59 Mode of Arrival: Family Vehicle Source of Information: Patient Description of Symptoms (Recalled from ER Triage Doc. by RN): TIERRA Pt presents to the ED with mutiple complaints. Pt reports MAYOR[place] X 4 hrs that got better with one episode of emesis, pt also reports that she had a temp of 101.1 at home. Pt also c/o R hip pain and swelling X 2 weeks. History of Present Illness HPI narrative: 64-year-old female presents to the ER with multiple complaints. Patient has a history of hypertension, hyperlipidemia, CAD, cardiac stents, diabetes. Patient reports many chronic conditions including recurrent diarrhea and review of labs from 05/01/2025 demonstrate negative diarrhea 23 panel from her PCP. Patient reports she has chronic headaches but tonight about 4 hours ago her regular headache intensified. It was not thunderclap in onset and she has no numbness, tingling, or weakness but states that around that time she was also having bandlike pain around her upper abdomen that was followed with emesis. She states vomiting helped her bandlike pain and also seemed to relieve her headache. She reports her headache is similar in nature to her regular headaches but just more intense. She does not take anything routinely for her headaches. She does report with the bandlike tightness around her ribs that she felt lightheaded. She also complains of chronic hip pain and swelling but states she is already seen for this and gets steroid injections in [place] for this. She states the hip complaint is also chronic and unchanged from its baseline. She does report some swelling of the hip but when she demonstrates it is actually of the right low back where she thought she felt swelling, however there is no swelling here on exam but there is an old, healing bruise. She states well it was there a few days ago . She has no redness or new tenderness of the hip. Patient reports a temperature of 101.1 at home as well as generalized bodyaches without cough or congestion, no difficulty breathing. She denies dysuria or hematuria. Patient reports her primary concern tonight is her headache being more intense than normal, the band-like pain around her upper abdomen/lower ribs followed by nausea and vomiting. Related Data Home Medications ?Medication ?Instructions ?Recorded ?Confirmed cholecalciferol (vitamin D3) 25 25 mcg PO DAILY Supple ment 05/07/22 04/29/25 mcg (1,000 unit) capsule Previous Rx's ?Medication ?Instructions ?Recorded blood sugar diagnostic, disc #30 ea 08/04/23 blood-glucose meter (Blood Glucose #1 ea 08/04/23 Monitoring kit) lancets 30 gauge #100 ea 08/04/23 nitroglycerin 0.4 mg sublingual 0.4 mg sublingual Q5M PRN chest 12/20/24 tablet pain #25 tabs amlodipine 2.5 mg tablet 2.5 mg PO DAILY bp #90 tabs 01/21/25 evolocumab 140 mg/mL subcutaneous 140 mg SQ .twice mon thly #1 mL 01/29/25 pen injector (Rossy Dill) pantoprazole 40 mg tablet,delayed 40 mg PO DAILY GERD #90 tabs 02/19/25 release bisoprolol fumarate 5 mg tablet 5 mg PO DAILY heart #90 tabs 02/25/25 triamterene 37.5 1 tab PO DAILY blood pressur e #90 03/11/25 mg-hydrochlorothiazide 25 mg tablet tabs clopidogrel 75 mg tablet 75 mg PO DAILY Blood thinner #90 03/29/25 tabs ondansetron 4 mg disintegrating 4 mg PO Q6H PRN nausea and 05/07/25 tablet vomiting #10 tabs Allergies Allergy/AdvReac Type Severity Reaction Status Date / Time dexamethasone (From Decadron) Allergy Intermediate Hives/CHEST Verified 04/29/25 14:53 PAIN rosuvastatin (From CRESTOR) Allergy Intermediate Hives Verified 04/29/25 14:53 atorvastatin (ATORVASTATIN) Allergy Mild Hives Verified 04/29/25 14:53 colesevelam (From WELCHOL) Allergy Mild Hives Verified 04/29/25 14:53 niacin (From Niaspan Allergy Mild Hives Verified 04/29/25 14:53 Extended-Release) bempedoic acid (From AdvReac Severe Verified 04/29/25 14:53 Nexlizet) ezetimibe (From Nexlizet) AdvReac Severe Verified 04/29/25 14:53 PFSH PFS Disclaimer: The information contained in this section may have been updated after the patient was seen, as this information can be updated by other users. Medical History Diabetes mellitus Typical angina Hearing loss HEARING LOSS IN LEFT EAR History of gastroesophageal reflux (GERD) History of coronary artery disease Encounter for pre-operative cardiovascular clearance Unstable angina Angina pectoris Dyspnea Chest pain Abnormal stress test Angina, class IV Edema Fatigue Palpitations HLD (hyperlipidemia) HTN (hypertension) Chest pain Post-menopausal Surgical History Hx of cataract surgery History of tubal ligation History of cholecystectomy History of knee replacement History of heart artery stent Family History Other Family history of cancer Social History Smoking Status: Never smoker alcohol intake: never substance use type: denies use current occupational status: retired and disabled Travel in the last 8 weeks?: None household members: family housing: house current occupational exposures/hazards: No caffeine: Yes Have you lived/traveled outside [place] in past 30 days?: No Contact w/someone who lives/traveled outside US past 30 days?: No Exposure to someone with infectious disease in past 14 days?: No Do you have a fever (greater than 100.4 F or 38 C)?: No Have you tested positive for COVID-19?: No Exposed to someone with COVID-19 in past 14 days?: No Do you have a sore throat?: No Do you have a cough?: No Do you have any weakness?: No Do you have any diarrhea?: Yes Are you experiencing any unusual bleeding?: No Do you have any muscle aches/pain?: Yes Do you have any abdominal pain?: No Are you experiencing loss of taste or smell?: No Other Medical History Have you received the Flu Vaccine for this season: No Have you received the Pneumonia Vaccine: Yes ROS Obtained: Yes Systems reviewed as appropriate & no additional complaints except as documented per HPI Physical Exam General General appearance: alert, in no apparent distress and obese Head Head exam: atraumatic and normocephalic Eye Eye exam: Present PERRL and EOMI; Absent conjunctival injection ENT ENT exam: Present mucous membranes moist Neck Neck exam: Present normal inspection and full ROM Chest Chest inspection: Present symmetric chest wall rise Respiratory Respiratory exam: Present normal lung sounds bilaterally; Absent respiratory distress, wheezes or stridor Cardiovascular Cardiovascular exam: Present regular rate and normal rhythm Abdominal Exam Abdominal exam: Present soft; Absent distention, tenderness, guarding or rebound Extremities Exam Extremities exam: Present full ROM and edema (+1 Bilateral lower extremity pitting edema) Back Exam Back exam: Present full ROM and tenderness (Very mild tenderness of the right lumbar paraspinal superficial soft tissue with no erythema or induration, there is an old, healing bruise there with no swelling, I do not appreciate hematoma or other abnormality. Regarding reported swelling here, ptstates it was there a few days ago ); Absent CVA tenderness (R) or CVA tenderness (L) Back 1 view image: 2 1. Area that patient reported superficial tenderness, there is no swelling, no hematoma, there is an old, well-healing bruise in this area, no erythema or induration, no fluctuance Neurological Exam Neurological exam: Present alert, oriented X3, CN II-XII intact, normal gait and other (GCS 15, NIH 0); Absent motor sensory deficit Psychiatric Psychiatric exam: Present normal affect and normal mood Skin Skin exam: Present warm and dry Medical Decision Making Medical Records Medical records reviewed: Yes I reviewed the patient's medical records. Screening: Per USPSTF and CDC recommendations, given the prevalence of disease in our region, it is our hospital?s policy to screen for HIV and viral Hepatitis for all patients aged 18 and over and those with ongoing risk factors. MR Comment: See HPI Neftali Inquiry Pt receiving controlled substance: No Vital Signs: 05/07/25 03:03 05/07/25 04:02 05/07/25 04:02 Temperature 98.8 F Temperature Source Oral Pulse Rate 71 Pulse Rate [Left] 89 Respiratory Rate 14 Blood Pressure 101/53 L Blood Pressure [Right Arm] 148/76 H Blood Pressure Mean 69 Blood Pressure Mean [Right Arm] 100 Blood Pressure Source Blood Pressure Source [Right Arm] Automatic Cuff Blood Pressure Position Blood Pressure Position [Right Arm] Sitting 02 Sat by Pulse Oximetry 96 93 L Oxygen Delivery Method Room Air 05/07/25 04:30 05/07/25 05:00 05/07/25 05:04 Temperature Temperature Source Pulse Rate 66 62 65 Pulse Rate [Left] Respiratory Rate Blood Pressure 107/54 L 91/49 L 105/50 L Blood Pressure [Right Arm] Blood Pressure Mean 77 Blood Pressure Mean [Right Arm] Blood Pressure Source Blood Pressure Source [Right Arm] Blood Pressure Position Blood Pressure Position [Right Arm] 02 Sat by Pulse Oximetry 92 L 91 L 92 L Oxygen Delivery Method 05/07/25 05:14 05/07/25 05:30 05/07/25 05:30 Temperature Temperature Source Pulse Rate 69 64 Pulse Rate [Left] Respiratory Rate Blood Pressure 105/55 L 120/57 L Blood Pressure [Right Arm] Blood Pressure Mean 71 69 Blood Pressure Mean [Right Arm] Blood Pressure Source Blood Pressure Source [Right Arm] Blood Pressure Position Blood Pressure Position [Right Arm] 02 Sat by Pulse Oximetry 93 L 91 L Oxygen Delivery Method 05/07/25 06:01 05/07/25 06:01 05/07/25 06:04 Temperature 98.8 F Temperature Source Oral Pulse Rate 62 62 Pulse Rate [Left] Respiratory Rate 14 Blood Pressure 110/51 L 110/51 L Blood Pressure [Right Arm] Blood Pressure Mean 70 Blood Pressure Mean [Right Arm] Blood Pressure Source Automatic Cuff Blood Pressure Source [Right Arm] Blood Pressure Position Sitting Blood Pressure Position [Right Arm] 02 Sat by Pulse Oximetry 94 L Oxygen Delivery Method Room Air Lab Data Lab Results 05/07/25 03:00: WBC 12.5 H, RBC 5.23, Hgb 14.5, Hct 43.2, MCV 82.6, MCH 27.7, MCHC 33.6, RDW 12.4, Plt Count 291, MPV 11.0 H, Neut % (Auto) 81.6 H, Lymph % (Auto) 11.9, [place] % (Auto) 4.1, Eos % (Auto) 1.7, Baso % (Auto) 0.4, Neut # (Auto) 10.2 H, Lymph # (Auto) 1.5, [place] # (Auto) 0.5, Eos # (Auto) 0.2, Baso # (Auto) 0.1, VBG pH 7.41, VBG pCO2 39.7, VBG pO2 49.7 H, VBG HCO3 24.4, VBG Total CO2 25.6, VBG O2 Saturation 84.9 H, VBG Base Excess -0.3, VBG Lactic Acid 1.9, Sodium 136, Potassium 4.2, Chloride 99, Carbon Dioxide 26, Anion Gap 15.2 H, BUN 14, Creatinine 0.90, Estimated Creat Clear 84, Estimated GFR 63, Est GFR ( Amer) 76, Glucose 169 H, Calcium 9.6, Total Bilirubin 0.8, AST 31, ALT 17, Alkaline Phosphatase 82, Troponin I < 0.01, Total Protein 7.7, Albumin 4.7, Globulin 3.0, Albumin/Globulin Ratio 1.6, Lipase 103, Acetone Level None detected 05/07/25 03:01: Chlamy pneumoniae PCR Not detected, Adenovirus (PCR) Not detected, B. pertussis DNA (PCR) Not detected, Coronavirus OC43 (PCR) Not detected, Coronavirus HKU1 (PCR) Not detected, Coronavirus 229E (PCR) Not detected, SARS-CoV-2 (PCR) Not detected, Coronavirus NL63 (PCR) Not detected, Human Metapneumovir PCR Not detected, Influenza A (H1) PCR Not detected, Influ A (H1N1/09) PCR Not detected, Influenza A (H3) PCR Not detected, Influenza Type A (PCR) Not detected, Influenza Type B (PCR) Not detected, M. pneumoniae (PCR) Not detected, Parainfluenza 1 (PCR) Not detected, Parainfluenza 2 (PCR) Not detected, Parainfluenza 3 (PCR) Not detected, Parainfluenza 4 (PCR) Not detected, RSV (PCR) Not detected, Entero/Rhino (PCR) Not detected 05/07/25 03:05: Urine Color Yellow, Urine Appearance Cloudy, Urine pH 6.0, Ur Specific [place] >= 1.030, Urine Protein 2+ A, Urine Glucose (UA) Negative, Urine Ketones Trace, Urine Blood Negative, Urine Nitrate Negative, Urine Bilirubin 1+ A, Urine Urobilinogen 0.2, Ur Leukocyte Esterase Trace, Urine RBC Occasional, Urine WBC Occasional, Ur Squamous Epith Cells 5-10, Urine Bacteria 1+ 05/07/25 05:15: Troponin I < 0.01 05/07/25 03:00 05/07/25 03:00 Orders (Tests/Meds): ED MEDICATIONS Discontinued Medications Generic Name Dose Route Start Last Admin Trade Name Freq PRN Reason Stop Dose Admin Acetaminophen 1,000 mg 05/07/25 03:12 05/07/25 03:26 Acetaminophen 500mg Tab PO 05/07/25 03:13 1,000 mg ONCE ONE Administration Lactated Ringer's 1,000 mls @ 999 mls/hr 05/07/25 03:01 05/07/25 03:27 Lactated Ringer's 1000 Ml Bag IV 05/07/25 04:01 999 mls/hr .Q1H1M ONE Administration Iopamidol 70 ml 05/07/25 03:53 05/07/25 03:56 Iopamidol-370 (76%);100ml Bottle IV 05/07/25 03:54 70 ml ONCE ONE Administration Ketorolac Tromethamine 15 mg 05/07/25 03:12 05/07/25 03:26 Ketorolac 30mg/Ml Vial IV 05/07/25 03:13 15 mg ONCE ONE Administration Ondansetron HCl 4 mg 05/07/25 03:01 05/07/25 03:26 Ondansetron 4mg/2ml Vial IV 05/07/25 03:02 4 mg ONCE ONE Administration Sodium Chloride 50 ml 05/07/25 03:53 05/07/25 03:56 0.9 % Sodium Chloride 50 Ml Vial IV 05/07/25 03:54 50 ml ONCE ONE Administration Sodium Chloride 10 ml 05/07/25 03:53 05/07/25 03:56 Sodium Chloride 0.9% 10ml Syr (Rad Only) IV 05/07/25 03:54 10 ml ONCE ONE Administration ORDERS Category Date Time Status CT abdomen pelvis w con Stat Cat Scan 05/07/25 03:[address] angio chest PE protocol Stat Cat Scan 05/07/25 03:[address] head/brain wo con Stat Cat Scan 05/07/25 03:01 Completed POCUS Point of Care (ER Only) Stat Exams 05/07/25 04:07 Completed Acetone, Serum (Rapid) Stat Lab 05/07/25 03:00 Completed CBC w/Auto Diff [Complete Blood Count Auto Diff] Stat Lab 05/07/25 03:00 Completed CMP [Comprehensive Metabolic Panel] Stat Lab 05/07/25 03:00 Completed Full Resp Panel w/COVID ([facility]) Routine Lab 05/07/25 03:01 Completed Lipase Stat Lab 05/07/25 03:00 Completed Trop I [Troponin I] Stat Lab 05/07/25 03:00 Completed Troponin I Q3H Lab 05/07/25 05:15 Completed Urinalysis and Microscopic Stat Lab 05/07/25 03:05 Completed VBG [Venous Blood Gas] Stat RT 05/07/25 03:00 Completed Medical Decision Narrative: In summary, this 64-year-old female with comorbidities described in the HPI not at goal therapy presents to the emergency department today with multiple complaints but is primarily concerned about headache, bandlike pain she had around her upper abdomen followed by nausea and vomiting all of which are now improving. On initial evaluation patient is hemodynamically stable and afebrile despite reporting a temperature of 101.1 at home and not taking any medications prior to arrival. GCS 15, NIH 0, no neurologic deficits appreciated, patient has no abdominal or chest pain or tenderness at this time. +1 pitting edema in the bilateral lower extremities is reportedly at baseline according to the patient, no CVA tenderness, back/hip pain is chronic, she does have a mild area of tenderness of the superficial tissues of the right lumbar paraspinal area with old healing bruise in this area but no swelling or evidence of infection though this was considered. No midline pain or tenderness, range of motion of the back and hip is full, no other traumatic findings or evidence of acute injury or abnormality. Differential diagnosis includes but is not limited to ACS, PE, pancreatitis, esophageal spasm, pneumothorax, electrolyte abnormality, viral syndrome, patient has chronic diarrhea which has already been assessed and she states it is not bloody or melanotic, her emesis with nonbloody, nonbilious according to her. This offers reassurance against bowel obstruction, I considered urinary tract infection but consider this less likely since she has no dysuria or hematuria, regarding her headache I suspect that this was an acute exacerbation of chronic headaches, I considered the possibility of more dangerous pathology such as intracranial bleed or mass but patient did not have red flag symptoms of headache, it was not maximal intensity at onset, not thunderclap in nature, she has no deficits, and she is already having spontaneous improvement. Based on these concerns, I ordered broad workup including serum labs, CT imaging, cardiac workup, urine studies. With the onset of all of her symptoms including a fever of 101.1 at home and generalized bodyaches I have highest suspicion for viral illness but will of course workup these more concerning potential pathologies. ECG personally interpreted demonstrates normal sinus rhythm, rate 75, normal axis, normal TN and QTc, no STEMI. Patient received Toradol, Tylenol, IV fluids, Zofran initially for treatment. Labs personally reviewed demonstrate leukocytosis is mild with WBC 12.5, patient's WBC 8 days ago was 10.9, this represents a slight increase today, hemoglobin stable, platelets normal, patient does have neutrophil predominance today with her leukocytosis, VBG with normal pH, normal lactic, no hypercarbia, CMP with only slightly elevated anion gap, this is actually improved from labs that were performed by her PCP last week. I had considered the possibility of DKA but she is not acidotic on VBG, negative acetone reassuring against ketosis. Normal BUN and creatinine, no transaminitis, normal bilirubin, initial troponin undetectably low less than 0.01 significantly reassuring in the setting of nonischemic ECG and patient not having any discomfort at this time. UA negative for findings of infection. CT head personally interpreted does not demonstrate acute intracranial abnormality, CTA PE personally interpreted does not demonstrate large segmental or subsegmental PE, CT abdomen pelvis demonstrates left intrarenal stone which should not be causing her any problems, and hiatal hernia. See radiology reads for final interpretations which are pending at this time. After returning from CT, patient showed one of the ER techs an area on her arm where she had redness and swelling. She states that in the last 24 hours [facility] I examined this area which had not been previously shown to me and it demonstrated a 4 cm diameter area of erythema, tenderness, swelling without fluctuance. I performed [id number] ultrasound of this which does not demonstrate any findings of abscess or cellulitis. I suspect this is a local reaction to the shingles booster, but this does increase my concern that her symptoms tonight were potentially caused by the shingles vaccine. With the patient's permission I filed a [facility] report about her symptoms. I did not apply her name to the report, just her age. On reassessment patient reports feeling significantly improved, she has had no other emesis, her headache is resolved, she is not having any bandlike pain around her lower chest/upper abdomen anymore. She feels much better. Additional labs reviewed demonstrate negative respiratory panel, lipase normal at 103 reassuring against pancreatitis. Repeat troponin also undetectably low less than 0.01. Patient ambulated around the ER with normal vitals and felt well. She was steady on her feet. She did not have any recurrence of symptoms with ambulation. I believe she is appropriate for discharge at this time and patient is comfortable with this plan as well. Patient was given instructions on symptomatic monitoring and management including explicit instructions regarding monitoring of the vaccine site and for any signs of infection like heat, worsening pain, streaking redness, or pus. She was given follow up instructions and return precautions for the emergency department. Patient indicated understanding and was discharged in stable condition. Procedures Miscellaneous Procedure Procedure Performed: Soft tissue ultrasound Indication: Soft tissue redness, tenderness Identified structures: Subcutaneous tissues of the left upper extremity Location: Left lateral deltoid area Findings: Normal appearing, no abscess or cellulitis, no subcutaneous air or foreign body Impression: Normal soft tissue ultrasound Images were saved saved to the permanent archive. The study was technically adequate. Soft tissue CPT codes Upper extremity: 32487-08 This study was performed by me, and I personally interpreted all images/videos. Based on my clinical judgment, these images were adequate and did not necessitate further imaging. Critical Care Critical Care Time Critical Care Time: No
--- NOTE | 2025-05-07 03:13 | ECG_ITS ---
APPROVED REPORT Exam: Resting ECG HR:75 bpm ECG Measurements Heart Rate 75 AXES RI 168 P 55 QRSd 90 QRS 15 QT 385 T 60 QTc 413 Conclusion SINUS RHYTHM LOW QRS VOLTAGE IN PRECORDIAL LEADS [QRS DEFLECTION < 1.0 mV IN CHEST LEADS] No STEMI Electronically signed by : EZE TOVAR, 05/07/2025 06:55:52
[2025-05-07 03:16] LABS: RBC,Urine Occasional #/hpf (0-3); WBC,Urine Occasional #/hpf (0-3)
[2025-05-07 03:17] LABS: Bacteria,Urine 1+ /lpf; Bilirubin,Urine 1+ (Negative)
[2025-05-07 03:17] LABS: Albumin Level 4.7 g/dl (3.5-5.0); Chloride 99 mmol/L (98-107)
[2025-05-07 03:18] LABS: Potassium 4.2 mmoL/L (3.5-5.1); Sodium 136 mmol/L (136-145)
[2025-05-07 03:20] LABS: Alanine Aminotransferase 17 U/L (12-78); Albumin/Globulin Ratio 1.6 (1.1-1.8); Alkaline Phosphatase 82 U/L (38-126); Anion Gap 15.2 mEq/L (5-15); Aspartate Amino Transferase 31 U/L (14-36); Bilirubin,Total 0.8 mg/dl (0.2-1.3); Blood Urea Nitrogen 14 mg/dl (7-17); Carbon Dioxide 26 mmol/L (22.0-30.0); Creatinine Clearance Estimated 84 mL/min (50-200); Creatinine,Serum 0.90 mg/dl (0.52-1.04); Estimated Glomerular Filt Rate 63 ml/min (>60); GFR (African American) 76 ML/MIN (>60); Globulin 3.0 g/dL (1.3-3.2); Total Protein,Serum 7.7 g/dl (6.3-8.2)
[2025-05-07 03:21] LABS: Calcium 9.6 mg/dl (8.4-10.2); Glucose 169 mg/dl (74-100)
[2025-05-07 03:22] LABS: Lactate Venous 1.9 mmol/L (0.4-2.0); VBG HCO3 24.4 mmol/L (23-30); VBG PCO2 39.7 mmol/L (35-51); VBG PH 7.41 mmol/L (7.31-7.41); VBG PO2 49.7 mmol/L (28-40)
[2025-05-07] MEDS: ACETAMINOPHEN 500MG TAB 1000 MG PO (03:26)
[2025-05-07] MEDS: ONDANSETRON 4MG/2ML VIAL 4 MG IV (03:26)
[2025-05-07] MEDS: KETOROLAC 30MG/ML VIAL 15 MG IV (03:26)
[2025-05-07] MEDS: LACTATED RINGERS 1000ML 1,000 ML 999 ML IV (03:27)
[2025-05-07 03:33] LABS: Acetone, Serum (Rapid) None Detected (None Detect); Troponin I < 0.01 ng/ml (0.00-0.034)
[2025-05-07 03:43] LABS: Lipase 103 U/L (23-300)
[2025-05-07] MEDS: IOPAMIDOL-370 (76%);100ML BOTTLE 70 ML IV (03:56)
[2025-05-07] MEDS: SODIUM CHLORIDE 0.9% 10ML SYR (RAD ONLY) 10 ML IV (03:56)
[2025-05-07] MEDS: 0.9 % SODIUM CHLORIDE 50 ML VIAL IV (03:56)
--- NOTE | 2025-05-07 05:27 | PC.NURSE ---
Ambulated patient without any incident
[2025-05-07 05:49] LABS: Troponin I < 0.01 ng/ml (0.00-0.034)
== END 2025-05-07 06:10 | disposition home or self-care (01) ==
PROVIDERS: Emergency Provider Emergency Medicine; PCP Family Medicine
DX: R10.10 Upper abdominal pain, unspecified (principal); R51.9 Headache, unspecified; R11.2 Nausea with vomiting, unspecified; N20.0 Calculus of kidney; K44.9 Diaphragmatic hernia without obstruction or gangrene; M25.551 Pain in right hip
CPT/HCPCS: 0223U; 70450; 71275; 74177; 80053; 81001; 82009; 82803; 83690; 84484; 85025; 87633; 93005; 96361; 96374; 96375; 99285; J1885; J2405; J7120; Q9967

== ENCOUNTER 2025-08-06 14:50 | Outpatient (CLI) | payer MEDICARE, OTHER, SELFPAY ==
--- NOTE | 2025-08-06 14:53 | MR_ITS ---
PROCEDURE INFORMATION: Exam: MR Lumbar Spine Without Contrast Exam date and time: 08/06/2025 3:07 PM Age: 65 years old Clinical indication: Low back pain; Additional info: Lbp pain into right hip x 3 months TECHNIQUE: Imaging protocol: Magnetic resonance imaging of the lumbar spine without contrast. COMPARISON: CR XR LUMBAR SPINE 2-3V 11/22/2020 10:42 AM FINDINGS:signal intensity within the bone marrow is normal. conus terminates at the mid aspect of L1. Soft tissues are unremarkable. Mild levocurvature of the lumbar spine of approximately 10 degrees centered at L3. Annular disk bulge and/or protrusions L3-L4 and L5-S1 The neural foramina are widely patent with perineural fat about the exiting nerve roots. No marrow edema Bones/joints: No fracture. No marrow edema Spinal cord: Visualized cord, conus medullaris and cauda equina are unremarkable without compression. L1-L2: Central canal and neural foramina are normal. L2-L3: Central canal and neural foramina are normal. L3-L4: Central canal and neural foramina are normal. L4-L5: Central canal and neural foramina are normal. L5-S1: Broad-based annular disc bulge effaces the anterior aspect of the thecal sac mildly so. Disc lateralizes to the left greater than right. Central canal and neural foramina are normal. Soft tissues: Unremarkable. IMPRESSION: Very mild degenerative disc disease as described above. Mild 10 degree levocurvature centered at L3.
== END 2025-08-06 23:59 | disposition home or self-care (01) ==
LOC: RAD 14:51
PROVIDERS: PCP Family Medicine; Visit Provider Physician Assistant
DX: M51.369 Other intervertebral disc degeneration, lumbar region without mention of lumbar back pain or lower extremity pain (principal)
CPT/HCPCS: 72148

== ENCOUNTER 2025-08-12 08:13 | Outpatient (CLI) | payer MEDICARE, OTHER, SELFPAY ==
--- OUTSIDE RECORDS SUMMARY | 2025-08-12 08:20 | XMS_ITS | Referral Summary ---
Author Organization [employer] ([place], [place], [place], [place]) Address [address] [place] [address] Care Team Providers Care Floral Designer Name Role Phone Unavailable Primary Care Provider Unavailabl e Allergies Active Allergy Reactions Criticality Noted Date Comments Szphnnj-Aoa-Agv Reductase Inhibitors 11/15/2022 Patient States Statins Cause [...] Date Javid rded Speak language other than Salvadorean at home Not on file 11/12/2023 Want help with school or training Not on file 11/12/2023 Substance Use Answer Date Recorded Used prescription meds for non-medical reasons N ot on file 11/12/2023 Used illegal drugs past 12 months Not on file 11/12/2023 Comments No Sex and Gender Information Value Date Recorded Sex Assigned at Not on file 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
--- OUTSIDE RECORDS SUMMARY | 2025-08-12 08:20 | XMS_ITS | Data Portability ---
Author Organization [facility] ADMIN Address [address] [place] [id number] Assessment No assessment recorded. Plan of Treatment [...] Nerve Conduction Study completed Jaime Rod M.D [address] [place] [address], [address], [place], [address], [facility] & [place] 02/28/2024 20:28:22 Imaging Results None recorded. Procedure [...] Updated DateTime 4 160.02 cm 38.1 kg/m2 59550.3 6 g 97.4 [degF] 96 % 96 % 75 /min [facility] [place] 4 14:44:15 Social History None recorded. Functional Status None recorded. Mental Status None recorded. Family History Nothing Reported. Medical History No medical history recorded. Gynecological HistoryNo gynecological history recorded. Obstetrics History GPAL:G 0 P 0 0 0 0 Past Encounters Encounter ID Performer Location Encounter Start Date Encounter Closed Date Diagnosis/Indication Diagnosis SNOMED-CT Code Diagnosis ICD10 Code Diagnosis IMO Codes Diagnosis Note [id number] Jaime Rod M.D [facility] [address],[facility] [address] [place] [id number] 02/13/2024 13:52:40 02/13/2024 15:29:26 Lumbosacral radiculitis 78647340 M54.17 Paresthesia 69267290 R20 .2 Health Concerns Section Related Observation LastModified by Organization Detai ls LastModified Time None Recorded Concern Status LastModified by Organization Details LastModified Time None Recorded Advance Directives Directive None Recorded Payers Insurance Date Sequence Insurance Name Policy Number Policy Li Covered Member ID Li Member ID Guarantor Name 05/12/2024 2 [facility] Alfreda Lai [id number] 05/12/2024 1 [place] Alfreda Lai [id number] OBGyn Episode No OBEpisode recorded.
--- OUTSIDE RECORDS SUMMARY | 2025-08-12 08:20 | XMS_ITS | Clinical Summary ---
Author Organization [employer] ([place], [place], [place], [place]) Address [address] [place] [address] Care Team Providers Care Lead Painter Name Role Phone Unavailable Primary Care Provider Unavailabl e Allergies Active Allergy Reactions Criticality Noted Date Comments Jufkuwq-Uxv-Pvr Reductase Inhibitors 11/15/2022 Patient States Statins Cause [...] Date Javid rded Speak language other than Dominican at home Not on file 11/12/2023 Want help with school or training Not on file 11/12/2023 Substance Use Answer Date Recorded Used prescription meds for non-medical reasons N ot on file 11/12/2023 Used illegal drugs past 12 months Not on file 11/12/2023 Comments No Sex and Gender Information Value Date Recorded Sex Assigned at Not on file 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 Gender Identity Not on file Sexual Orientation [...] Tobacco Cessation Counseling and Screening (12+) 11/1511/15/2022 Falls Risk Screening 10/24/2024 COVID-19 VACCINE ( - 2023- season) 2025 Influenza Vaccine (#1) 2025 Medical Devices Implanted Type Area Commercial Airplane Pilot Device Identifier Shelf Expiration Date Model / Serial / Lot Coronary Stints Right Knee Replacement Insurance AETNA [facility] MEDICARE PART A B Advance Directives For more information, please contact: [phone] * Full Code (Latest Code Status on File) Date Activated Date Inactivated Comments 11/15/2022 7:15 AM 11/15/2022 2:18 PM
--- NOTE | 2025-08-12 08:30 | US_ITS ---
PROCEDURE INFORMATION: Exam: US Left Breast, Complete Exam date and time: 08/12/2025 8:29 AM Age: 65 years old Clinical indication: Short-term sonographic follow up of probable cystic change TECHNIQUE: Imaging protocol: Complete ultrasound of all four quadrants of the left breast and the retroareolar regions, including ultrasound of the axilla when performed. COMPARISON: US BREAST LT COMPLETE 01/30/2025 8:23 AM FINDINGS: ULTRASOUND: Breast ultrasound findings: Sonographic images of the left breast including the retroareolar region, all 4 quadrants and the axilla do not demonstrate any solid masses. Scattered cysts are present including the 1 o'clock axis 3 cm from the nipple. Incidental subcutaneous subcentimeter lipoma 5 o'clock axis. No architectural distortion or acoustical shadowing. No skin thickening or axillary adenopathy. It should be noted there is a typographical error on the sonographic images, in that, the left axilla was imaged IMPRESSION: No sonographic evidence of malignancy. Annual mammographic screening is recommended unless otherwise clinically indicated. ASSESSMENT: BI-RADS Category 1: Negative.
== END 2025-08-12 23:59 | disposition home or self-care (01) ==
LOC: RAD 08:14
PROVIDERS: PCP Family Medicine; Visit Provider Obstetrics & Gynecology
DX: D17.39 Benign lipomatous neoplasm of skin and subcutaneous tissue of other sites (principal); R92.8 Other abnormal and inconclusive findings on diagnostic imaging of breast
CPT/HCPCS: 76641